=== PATIENT | female | born 1940 | race Caucasian/White ===

== ENCOUNTER 2019-12-04 14:20 | Outpatient (CLI) | payer MEDICARE, SELFPAY ==
[2019-12-04 16:47] LABS: Free T4 Free Thyroxine 1.01 ng/mL (0.78-2.19)
[2019-12-07 05:56] LABS: Triiodothyronine T3 Free 2.4 pg/mL (2.3-4.2)
== END 2019-12-04 14:21 | disposition home or self-care (01) ==
LOC: ANHWCLAB 14:26
PROVIDERS: PCP Internal Medicine; Visit Provider Internal Medicine Endocrinology, Diabetes & Metabolism
DX: E04.9 Nontoxic goiter, unspecified (principal); E05.90 Thyrotoxicosis, unspecified without thyrotoxic crisis or storm
CPT/HCPCS: 36415; 84439; 84443; 84481

== ENCOUNTER 2019-12-11 13:13 | Outpatient (CLI) | payer MEDICARE, SELFPAY ==
--- NOTE | ~2019-12-11 | US_ITS ---
EXAMINATION: US thyroid DATE: 12/11/2019 14:05 INDICATION: Thyrotoxicosis, unspecified without thyrotoxic crisis. Neck fullness on exam. TECHNIQUE: Multiple ultrasound images of the thyroid were obtained. COMPARISON: Thyroid scintigraphy 08/29/2018, chest CT 08/10/2015 FINDINGS: The right thyroid lobe measures 5.0 x 1.2 x 2.3 cm. The left thyroid lobe measures 7.8 x 1.4 x 3.6 c m. In the inferior left thyroid lobe, there is a 4.2 cm predominantly solid, isoechoic, dkujy-gwdy-f all nodule with ill-defined margin without echogenic foci (TI-RADS TR3). IMPRESSION: 1. 4.2 cm left thyroid nodule, stable from 08/10/15, likely benign. Reviewed, dictated and finalized at location A. RAL APPELLATE LAW CLERK
== END 2019-12-11 13:14 | disposition home or self-care (01) ==
PROVIDERS: PCP Internal Medicine; Visit Provider Internal Medicine Endocrinology, Diabetes & Metabolism
DX: E05.90 Thyrotoxicosis, unspecified without thyrotoxic crisis or storm (principal); E04.9 Nontoxic goiter, unspecified
CPT/HCPCS: 76536

== ENCOUNTER 2019-12-26 13:32 | Outpatient (CLI) | payer MEDICARE, SELFPAY ==
--- NOTE | ~2019-12-26 | US_ITS ---
EXAMINATION: US FNA w image guidance DATE: 12/26/2019 15:09 INDICATION: Nontoxic single thyroid nodule. TECHNIQUE: The procedure and its benefits, risks, and benefits were discussed with the patient. Risks specifical ly discussed included bleeding. The patient verbalized understanding of the risks and agreed to proce ed. The neck was prepped and draped in the usual sterile manner. 1% lidocaine was used for local ane sthesia. 5 passes were made with a 25G needle into the lesion. Appropriate needle location was docu mented with continuous sonographic guidance. There were no immediate complications. The patient unde rstood to call the ordering physician for results after a week and a half and verbalized that underst anding. FINDINGS: Grayscale ultrasound images demonstrate needles advanced into a 3.5 cm nodule in inferior left thyroi d lobe for biopsy. IMPRESSION: 1. Ultrasound-guided fine needle aspiration of a left thyroid nodule. Reviewed, dictated and finalized at location A. ON CATCHER
== END 2019-12-26 13:33 | disposition home or self-care (01) ==
PROVIDERS: PCP Internal Medicine; Visit Provider Internal Medicine Endocrinology, Diabetes & Metabolism
DX: E04.1 Nontoxic single thyroid nodule (principal)
CPT/HCPCS: 10005; 88108; 88173

== ENCOUNTER 2020-02-05 17:01 | Emergency (ER) | payer MEDICARE, SELFPAY ==
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
[2020-02-05 17:15] VITALS: BP 148/89; PULSE 104; RESP 16; TEMP 36.6; O2SAT 97
== END 2020-02-05 17:40 | disposition short-term general hospital (02) ==
PROVIDERS: Emergency Provider Nurse Practitioner; PCP Internal Medicine
DX: S01.01XA Laceration without foreign body of scalp, initial encounter (principal); W01.0XXA Fall on same level from slipping, tripping and stumbling without subsequent striking against object, initial encounter; Z79.82 Long term (current) use of aspirin; E78.00 Pure hypercholesterolemia, unspecified; I10 Essential (primary) hypertension
CPT/HCPCS: 12001; 99212; G0463

== ENCOUNTER 2020-02-05 18:10 | Emergency (ER) | payer OTHER, MEDICARE, SELFPAY ==
--- NOTE | ~2020-02-05 | CT_ITS ---
EXAMINATION: CT brain wo con DATE: 02/05/2020 18:24 INDICATION: Status post fall. Head injury. TECHNIQUE: Computed tomography (CT) of the head was performed without intravenous contrast. The dose- length product was 605.33 mGy-cm. The mA was adjusted according to patient size. Iterative reconstruc tion technique was employed. COMPARISON: CT dated 08/10/2015 FINDINGS: No significant change to partially calcified extra-axial mass left frontal lobe, consistent with meningioma. There is left posterior parietal scalp hematoma. Mild atrophy. There are scattered mild periventricular and subcortical white matter changes, most likely related to small vessel ischem ic disease (microangiopathy). There is intracranial atherosclerosis and ectasia. No acute intracrania l hemorrhage, infarction, mass or mass effect. No ventriculomegaly or midline shift.. Paranasal sinus es and mastoids are pneumatized. No depressed skull fractures. IMPRESSION: 1. No acute intracranial abnormality. 2: Stable partially calcified left frontal lobe extra-axial mass, consistent with meningioma. 3: Chronic age-related findings. Reviewed, dictated and finalized at location A. IMPRESSION: 1. No acute intracranial abnormality. 2: Stable partially calcified left frontal lobe extra-axial mass, consistent wi th meningioma. 3: Chronic age-related findings.
[2020-02-05 18:13] VITALS: BP 135/102; PULSE 105; RESP 18; TEMP 37.1; O2SAT 95
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
[2020-02-05 18:50] VITALS: BP 136/96; PULSE 101; RESP 20; O2SAT 95
[2020-02-05 19:01] VITALS: BP 138/92; PULSE 78; RESP 16; O2SAT 100
== END 2020-02-05 19:01 | disposition home or self-care (01) ==
PROVIDERS: Emergency Provider Emergency Medicine; PCP Internal Medicine
DX: S01.01XA Laceration without foreign body of scalp, initial encounter (principal); M19.90 Unspecified osteoarthritis, unspecified site; E11.9 Type 2 diabetes mellitus without complications; E78.5 Hyperlipidemia, unspecified; I10 Essential (primary) hypertension; E03.9 Hypothyroidism, unspecified; Z79.82 Long term (current) use of aspirin; Z96.652 Presence of left artificial knee joint; G93.9 Disorder of brain, unspecified; W01.0XXA Fall on same level from slipping, tripping and stumbling without subsequent striking against object, initial encounter
CPT/HCPCS: 70450; 99284

== ENCOUNTER 2020-06-14 13:35 | Outpatient (CLI) | payer MEDICARE, SELFPAY ==
--- NOTE | ~2020-06-14 | US_ITS ---
EXAMINATION: US thyroid DATE: 06/14/2020 14:08 INDICATION: Nontoxic single thyroid nodule. TECHNIQUE: Multiple ultrasound images of the thyroid were obtained. COMPARISON: Ultrasound 12/26/2019, 12/11/2019, chest CT 08/10/15 FINDINGS: The right thyroid lobe measures 4.2 x 1.9 x 2.0 cm. The left thyroid lobe measures 5.7 x 2.4 x 3.1 c m. The thyroid demonstrates diffusely increased vascularity. In the right thyroid lobe, there is an 11 mm solid, isoechoic, ubsfu-ovcs-gwbz nodule with ill-defined margin without echogenic foci (TI-RAD S TR3). In the left thyroid lobe, there is a 3.5 cm almost completely solid, hypoechoic, qnmas-zknw-g all nodule with ill-defined margin without echogenic foci (TR4). In the left thyroid lobe, there is a 2.3 cm almost completely solid, hypoechoic, ijhla-eggj-pwke nodule with ill-defined margin without e chogenic foci (TR4). These 2 nodules were measured together on prior imaging and area stable from 08/15. Biopsy on 12/26/2019 was benign. IMPRESSION: 1. Thyroid nodules, likely not clinically significant. Reviewed, dictated and finalized at location B.
== END 2020-06-14 13:36 | disposition home or self-care (01) ==
PROVIDERS: PCP Internal Medicine; Visit Provider Internal Medicine Endocrinology, Diabetes & Metabolism
DX: E04.2 Nontoxic multinodular goiter (principal)
CPT/HCPCS: 76536

== ENCOUNTER 2020-08-19 11:29 | Outpatient (CLI) | payer MEDICARE, SELFPAY ==
--- NOTE | ~2020-08-19 | XR_ITS ---
XR foot LT min 3V 08/19/2020 11:59 Indication: Left foot pain Procedure: 4 views left foot Comparison: 12/20/2006 Findings: No fracture or traumatic malalignment. Osteopenia. Mild polyarticular osteoarthritis. Lisfr anc joint intact. There are prominent degenerative calcaneal enthesophyte at the plantar surface. 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 Reviewed, dictated and finalized at location B. 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
== END 2020-08-19 11:30 | disposition home or self-care (01) ==
PROVIDERS: PCP Internal Medicine; Visit Provider Internal Medicine
DX: S99.929A Unspecified injury of unspecified foot, initial encounter (principal); X58.XXXA Exposure to other specified factors, initial encounter; M19.072 Primary osteoarthritis, left ankle and foot
CPT/HCPCS: 73630

== ENCOUNTER 2020-09-16 15:00 | Outpatient (CLI) | payer MEDICARE, SELFPAY ==
--- NOTE | ~2020-09-16 | MM_ITS ---
EXAMINATION: MM screening reza BI w tyrone HISTORY: Screening mammogram TECHNIQUE: Craniocaudal and mediolateral oblique 3-D tomosynthesis images were obtained and synthetic 2-D images were generated. CAD analysis was submitted and interpreted. COMPARISON: 08/10/2019, 11/06/2015, 10/08/2014 BREAST PARENCHYMAL COMPOSITION: There are scattered areas of fibroglandular density. FINDINGS: Scattered benign-appearing calcifications are present. There is no evidence of suspicious m ass, calcification, or architectural distortion to suggest malignancy in either breast. There has bee n no suspicious interval change. IMPRESSION: 1. No mammographic evidence of malignancy. 2. Recommend routine screening mammography while the patient remains in good health. BI-RADS Category 2: Benign finding(s). Reviewed, dictated and finalized at location A. ROPOLOGY AND ARCHEOLOGY INSTRUCTOR IMPRESSION: 1. No mammographic evidence of malignancy. 2. Recommend routine screening mammography while the patient remains in good he alth. BI-RADS Category 2: Benign finding(s).
== END 2020-09-16 15:01 | disposition home or self-care (01) ==
LOC: ANHIMG 15:02
PROVIDERS: PCP Internal Medicine; Visit Provider Internal Medicine
DX: Z12.31 Encounter for screening mammogram for malignant neoplasm of breast (principal)
CPT/HCPCS: 77063; 77067

== ENCOUNTER 2021-01-23 10:20 | Outpatient (CLI) | payer MEDICARE, SELFPAY ==
[2021-01-23 13:09] LABS: Free T4 Free Thyroxine 0.85 ng/mL (0.78-2.19)
[2021-01-23 13:25] LABS: Total Triiodothyronine (T3) 1.27 NG/ML (0.97-1.69)
[2021-01-28 15:04] LABS: Thyroid Stimulating Immunoglob <89 % baseline (<140)
== END 2021-01-23 10:21 | disposition home or self-care (01) ==
LOC: ANHWCLAB 10:25
PROVIDERS: PCP Internal Medicine; Referring Provider Internal Medicine Endocrinology, Diabetes & Metabolism; Visit Provider Internal Medicine Endocrinology, Diabetes & Metabolism
DX: E04.1 Nontoxic single thyroid nodule (principal); R73.03 Prediabetes; E05.90 Thyrotoxicosis, unspecified without thyrotoxic crisis or storm
CPT/HCPCS: 36415; 84439; 84443; 84445; 84480

== ENCOUNTER 2021-04-19 14:22 | Emergency (ER) | payer MEDICARE, SELFPAY ==
--- NOTE | ~2021-04-19 | XR_ITS ---
XR wrist RT min 3V DATE: 04/19/2021 14:51 INDICATION: Fall, right wrist injury, pain TECHNIQUE: 4 views COMPARISON: None FINDINGS: There is a minimally displaced comminuted intra-articular fracture of the distal radius. Diffuse osteopenia. Triangular cartilage calcification. Prominent osteoarthritic change at the first carpometacarpal joint. There is osteoarthritic change at the first metacarpophalangeal and multiple interphalangeal joints. IMPRESSION: Comminuted intra-articular fracture distal radius Diffuse osteopenia Polyarticular osteoarthritis Reviewed, dictated and finalized at location A.
[2021-04-19 14:25] VITALS: BP 131/86; PULSE 102; RESP 16; TEMP 36.2; O2SAT 97
--- NOTE | 2021-04-19 15:58 | ED.GENADULT ---
HPI - General Adult General Chief complaint: Extremity Injury, Upper Stated complaint: right wrist injury Time Seen by Provider: 04/19/21 14:47 Source: patient Mode of arrival: ambulatory Limitations: no limitations History of Present Illness HPI narrative: Patient presents for evaluation of right wrist pain. She indicates she was doing some yard work today when she tripped over her left foot. She has a hx of drop foot and wears an ankle brace on the left. She did not hit her head or have loss of consciousness. She landed on her left buttock and is now experiencing pain in the right wrist. She reports decreased range of motion states that the pain in her right wrist is moderate in severity, without descriptive quality or numerical rating. No paresthesias. She is ambidextrous. She has some mild pain in the right shoulder denies loss of range of motion there. She denies pain in the left hip. She is not anticoagulated. 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 No additional complaints or concerns. Related Data Home Medications Medication Instructions Recorded Confirmed aspirin 81 mg chewable tablet 81 mg PO DAILY 10/04/19 03/27/21 calcium carbonate 600 mg (1,500 cap PO 02/15/20 03/27/21 mg)-vitamin D3 500 unit capsule fesoterodine 8 mg tablet,extended 8 mg PO DAILY 02/15/20 03/27/21 release 24 hr Allergies Allergy/AdvReac Type Severity Reaction Status Date / Time No Known Allergies Allergy NONE Verified 04/19/21 16:08 Review of Systems Review of Systems: Narrative: CONSTITUTIONAL: Denies fever, chills, or sweats. EYES: Denies visual changes, redness, or discharge. ENT: Denies rhinorrhea, congestion, sore throat, or otalgia. CARDIOVASCULAR: Denies chest pain, palpitations, or edema. RESPIRATORY: Denies cough or dyspnea. GASTROINTESTINAL: Denies abdominal pain, nausea, vomiting, or diarrhea. GENITOURINARY: Denies dysuria or hematuria. SKIN: Reports bruising to the right wrist. Denies rash or itching. MUSCULOSKELETAL: Reports right wrist pain and mild right shoulder pain. Denies back pain, joint pain, or myalgia. NEUROLOGIC: Denies headache, numbness, dizziness, or weakness. PSYCHIATRIC: Denies anxiety or depression. [facility] Past Medical History Medical History Anxiety Arthritis Diabetes mellitus Epistaxis HLD (hyperlipidemia) HTN (hypertension) Left foot drop Melena Obstructive sleep apnea Rectal polyp Shingles Traumatic injury of foot Surgical History Surgical History H/O arthroscopy of right knee H/O section History of back surgery History of left knee replacement Family History Family History Mother Cerebrovascular accident Family history of heart disease in male family member before age 55 Father Family history of malignant neoplasm of urinary bladder Social History Social History (Updated 04/19/21 @ 15:59 by IESHA Everett, ) Second hand tobacco smoke exposure: No Alcohol intake: never Substance use: never Living arrangements: with family Gender identity (if verbalized by the patient): Female Sexual Orientation (if Verbalized by the Patient): Straight or Heterosexual Spiritual care concerns: No Exam Narrative: Exam Narrative: GENERAL: Well-appearing, well-nourished, and in no acute distress. HEAD: Normocephalic, atraumatic. EYES: PERRLA and EOMI. ENT: Nares clear, no rhinorrhea or epistaxis. Mucous membranes moist. Oropharynx without tonsillar hypertrophy exudate or other lesions. Bilateral TMs pearly reyes nonbulging NECK: Supple. No adenopathy or masses. No carotid bruits or JVD CHEST: Clear to auscultation. No respiratory distress. No wheezes rales or rhonchi HEART: Regular rate and rhythm. No murmur heard. Normal peripheral pulses. ABDOMEN: Soft, nontender, nondiste
--- NOTE | 2021-04-19 16:10 | PC.NURSE ---
youth career specialist in room with the patient at this time.
--- NOTE | 2021-04-19 16:14 | PCCCNOTE ---
Care Coordination spoke with patient about resources for help at home. Pt has a fractured wrist and will be place in a splint. She has concerns she will need help at home as her has medical issues and is unable to assist with cooking and cleaning. Pt states she drove herself to hospital and lives close by. Her children all live out of state. Gave pt private pay caregiver list, POLLY flyer with phone number and discussed her calling her PMD for referral for home health with medication set up if needed. Pt voices understanding and states she will call her PMD on Wednesday and will follow all instructions hospital gives her. She also has close neighbors that are limited assistance.
[2021-04-19 18:00] VITALS: BP 149/97; PULSE 90; RESP 18; O2SAT 98
== END 2021-04-19 18:00 | disposition home or self-care (01) ==
PROVIDERS: Emergency Provider Nurse Practitioner; PCP Internal Medicine
DX: S52.571A Other intraarticular fracture of lower end of right radius, initial encounter for closed fracture (principal); M19.90 Unspecified osteoarthritis, unspecified site; E11.9 Type 2 diabetes mellitus without complications; E78.5 Hyperlipidemia, unspecified; I10 Essential (primary) hypertension; G47.30 Sleep apnea, unspecified; W01.0XXA Fall on same level from slipping, tripping and stumbling without subsequent striking against object, initial encounter
CPT/HCPCS: 29125; 73110; 99284; A4565

== ENCOUNTER 2021-04-26 12:30 | Emergency (ER) | payer MEDICARE, SELFPAY ==
[2021-04-26 12:43] VITALS: BP 106/82; PULSE 112; RESP 18; TEMP 36.2; O2SAT 96
--- NOTE | 2021-04-26 13:16 | ED.EPISTAXIS ---
HPI - Epistaxis General Chief complaint: Epistaxis Stated complaint: nose bleed Time Seen by Provider: 04/26/21 13:02 Source: patient Mode of arrival: EMS Limitations: no limitations History of Present Illness HPI Narrative: Patient is an 80-year-old female who presents for evaluation of epistaxis. Patient states nosebleeding started suddenly this morning when she went to pick her left nostril and immediately started to have brisk bleeding from the left naris. Patient was unable to control the bleeding at home, thus EMS was called. Nasal clamp was placed and patient was transported to our facility. No shortness of breath. She is not anticoagulated. No history of hypertension. No history of coagulopathy. No facial trauma otherwise. Patient denies any current lightheadedness or dizziness. Pt recently with injury to right arm, pt has splint in place. Fingers slightly bruised. Related Data Home Medications Medication Instructions Recorded Confirmed aspirin 81 mg chewable tablet 81 mg PO DAILY 10/04/19 03/27/21 calcium carbonate 600 mg (1,500 cap PO 02/15/20 03/27/21 mg)-vitamin D3 500 unit capsule fesoterodine 8 mg tablet,extended 8 mg PO DAILY 02/15/20 03/27/21 release 24 hr Allergies Allergy/AdvReac Type Severity Reaction Status Date / Time No Known Allergies Allergy NONE Verified 04/21/21 13:13 Review of Systems Review of Systems: Narrative: CONSTITUTIONAL: Denies fever HEENT: Epistaxis + CARDIOVASCULAR: Denies chest pain RESPIRATORY: Denies cough or dyspnea. GASTROINTESTINAL: Denies abdominal pain SKIN: Denies rash MUSCULOSKELETAL: Denies back pain NEUROLOGIC: Denies headache PMFSH Past Medical History Medical History Anxiety Arthritis Diabetes mellitus Epistaxis HLD (hyperlipidemia) HTN (hypertension) Left foot drop Melena Obstructive sleep apnea Rectal polyp Shingles Traumatic injury of foot Surgical History Surgical History H/O arthroscopy of right knee H/O section History of back surgery History of left knee replacement Family History Family History Mother Cerebrovascular accident Family history of heart disease in male family member before age 55 Father Family history of malignant neoplasm of urinary bladder Social History Social History Second hand tobacco smoke exposure: No Alcohol intake: never Substance use: never Gender identity (if verbalized by the patient): Female Spiritual care concerns: No Exam Narrative: Exam Narrative: GENERAL: Awake, alert, conversant HEAD: Normocephalic, atraumatic. EYES: PERRLA and EOMI. ENT: Epistaxis of the left naris. Large blood clot present. Mucous membranes moist. Mild streaking of blood in the posterior oropharynx. NECK: Supple. CHEST: No respiratory distress, breathing even and non labored HEART:Tachycardic rate, sinus rhythm ABDOMEN:Non distended, non tender EXTREMITIES: Normal range of motion. No edema. Splint in place, right wrist. SKIN: Warm, dry, no rash. NEURO:No focal deficits. Alert and oriented x3 Course Vital Signs Vital signs: Vital Signs Temperature 36.2 C L 04/26/21 12:43 Pulse Rate 112 H 04/26/21 12:43 Respiratory Rate 18 04/26/21 12:43 Blood Pressure 106/82 04/26/21 12:43 Pulse Oximetry 96 04/26/21 12:43 Temperature 36.2 C L 04/26/21 12:43 Pulse Rate 112 H 04/26/21 12:43 Respiratory Rate 18 04/26/21 12:43 Blood Pressure 106/82 04/26/21 12:43 Pulse Oximetry 96 04/26/21 12:43 MDM - Epistaxis MDM Narrative Medical decision making narrative: Patient presented for evaluation of epistaxis. At the time of assessment, airway is intact and vital signs are notable for mild tachycardia. Patient blew her nose, clot was evacuated, Afrin was sp
[2021-04-26 14:35] LABS: Basophils Percent Auto 0.4 % (0.2-1.2); Eosinophils Absolute Auto 0.1 K/mm3 (0-0.3); Eosinophils Percent Auto 1.5 % (0-4.4); Hemoglobin 11.7 g/dL (12.0-15.0); Immature Granulocyte Absolute 0.02 K/mm3 (0.00-0.031); Immature Granulocyte Percent A 0.2 % (0-0.5); Lymphocytes Absolute Auto 1.15 K/mm3 (0.9-3.2); Mean Corpuscular HGB Conc 31.6 g/dl (32-36); Mean Corpuscular Hemoglobin 29.3 pg (26-34); Mean Corpuscular Volume 92.5 fl (80-100); Mean Platelet Volume 9.7 fl (7.4-10.4); Monocytes Absolute Auto 0.7 K/mm3 (0.1-0.6); Monocytes Percent Auto 8.1 % (2.6-8.5); Neutrophils Absolute Auto 6.2 K/mm3 (1.3-6.7); Neutrophils Percent Auto 75.8 % (45.5-73.1); Platelet Count Result 258 k/mm3 (150-375); Red Cell Distribution Width 13.6 % (11.5-14.5); White Blood Count 8.2 K/mm3 (4.5-10.0)
[2021-04-26 14:45] LABS: Anion Gap 7 mmol/L (8-16); Blood Urea Nitrogen 22 mg/dL (7-17); Calcium 8.6 mg/dL (8.4-10.2); Carbon Dioxide 27 mmol/L (22-30); Chloride 109 mmol/L (98-107); Estimated CRCL calculation 47 ml/min; Estimated Glomerular Filt Rate > 60; Glucose 90 mg/dL (65-105); Potassium 3.9 mmol/L (3.4-5.0); Sodium 143 mmol/L (137-145)
== END 2021-04-26 15:17 | disposition home or self-care (01) ==
PROVIDERS: Emergency Provider Emergency Medicine; PCP Internal Medicine
DX: R04.0 Epistaxis (principal); F41.9 Anxiety disorder, unspecified; M19.90 Unspecified osteoarthritis, unspecified site; E11.9 Type 2 diabetes mellitus without complications; E78.5 Hyperlipidemia, unspecified; I10 Essential (primary) hypertension; G47.30 Sleep apnea, unspecified; M21.372 Foot drop, left foot; Z79.82 Long term (current) use of aspirin
CPT/HCPCS: 30901; 36415; 80048; 85025; 99283; A9270

== ENCOUNTER 2021-05-01 08:29 | Emergency (ER) | payer MEDICARE, SELFPAY ==
[2021-05-01 08:26] VITALS: BP 131/79; PULSE 121; RESP 22; O2SAT 100
--- NOTE | 2021-05-01 08:52 | ED.EPISTAXIS ---
HPI - Epistaxis General Chief complaint: Epistaxis Stated complaint: nosebleed Time Seen by Provider: 05/01/21 08:52 Source: patient and RN notes reviewed Limitations: no limitations History of Present Illness HPI Narrative: Patient is 80 years old white female presents with epistaxis, unknown side, started 3 hours prior to arrival to the emergency room. Patient is a status post anterior cauterization 1 week ago by ENT. Patient reports that Dr. Jose C perez is aware and was told that he is going to come to the emergency room to fix her. Related Data Home Medications Medication Instructions Recorded Confirmed aspirin 81 mg chewable tablet 81 mg PO DAILY 10/04/19 04/28/21 calcium carbonate 600 mg (1,500 cap PO 02/15/20 04/28/21 mg)-vitamin D3 500 unit capsule fesoterodine 8 mg tablet,extended 8 mg PO DAILY 02/15/20 04/28/21 release 24 hr Allergies Allergy/AdvReac Type Severity Reaction Status Date / Time No Known Allergies Allergy NONE Verified 05/01/21 08:35 Review of Systems Review of Systems: Narrative: CONSTITUTIONAL: Denies fever, chills, or sweats. EYES: Denies visual changes, redness, or discharge. ENT: Denies rhinorrhea, congestion, sore throat, or otalgia. CARDIOVASCULAR: Denies chest pain, palpitations, or edema. RESPIRATORY: Denies cough or dyspnea. GASTROINTESTINAL: Denies abdominal pain, nausea, vomiting, or diarrhea. GENITOURINARY: Denies dysuria or hematuria. SKIN: Denies rash or itching. MUSCULOSKELETAL: Denies back pain, joint pain, or myalgia. NEUROLOGIC: Denies headache, numbness, or weakness. PSYCHIATRIC: Denies anxiety or depression. [facility] Past Medical History Medical History Anxiety Arthritis Diabetes mellitus Epistaxis HLD (hyperlipidemia) HTN (hypertension) Left foot drop Melena Obstructive sleep apnea Rectal polyp Shingles Traumatic injury of foot Surgical History Surgical History H/O arthroscopy of right knee H/O section History of back surgery History of left knee replacement Family History Family History Mother Cerebrovascular accident Family history of heart disease in male family member before age 55 Diabetes mellitus Heart disease Father Family history of malignant neoplasm of urinary bladder Sibling Hypertension Heart disease Cerebrovascular accident Other Alcoholism Social History Social History Second hand tobacco smoke exposure: No Alcohol intake: never Substance use: never Gender identity (if verbalized by the patient): Female Spiritual care concerns: No Exam Narrative: Exam Narrative: General appearance: Well-developed, well-nourished Skin: Normal color Head: Normocephalic, nontraumatic Eyes: Clear conjunctiva ENT: Oropharynx normal, ears normal,, nose bleed bilaterally, nasal clip on. No active bleeding at this time Neck: Supple, nontender Chest and respiratory: Airway patent, no respiratory distress, no accessory muscle use Heart: Regular rate/rhythm Vascular: Normal peripheral pulses, normal capillary refill. Musculoskeletal: Normal range of motion, nontender back Neurologic: Alert and oriented ?3, Course Course Emergency Course: Stable, resolved Vital Signs Vital signs: Vital Signs Pulse Rate 121 H 05/01/21 08:26 Respiratory Rate 22 H 05/01/21 08:26 Blood Pressure 131/79 05/01/21 08:26 Pulse Oximetry 100 05/01/21 08:26 Pulse Rate 108 H 05/01/21 11:08 Respiratory Rate 18 05/01/21 11:08 Blood Pressure 1
--- NOTE | 2021-05-01 09:06 | PC.NURSE ---
Pt requests to call [facility] and [facility] to get a ride home
[2021-05-01 09:10] VITALS: BP 144/98; PULSE 115; RESP 20; O2SAT 100
[2021-05-01 09:53] VITALS: BP 140/77; PULSE 110; RESP 17; O2SAT 97
[2021-05-01 11:08] VITALS: BP 140/77; PULSE 108; RESP 18; O2SAT 98
== END 2021-05-01 11:37 | disposition home or self-care (01) ==
PROVIDERS: Emergency Provider Emergency Medicine; PCP Internal Medicine
DX: R04.0 Epistaxis (principal); F41.9 Anxiety disorder, unspecified; M19.90 Unspecified osteoarthritis, unspecified site; E11.9 Type 2 diabetes mellitus without complications; E78.5 Hyperlipidemia, unspecified; I10 Essential (primary) hypertension; G47.30 Sleep apnea, unspecified
CPT/HCPCS: 30905; 99282

== ENCOUNTER 2021-07-03 11:58 | Outpatient (CLI) | payer MEDICARE, SELFPAY ==
[2021-07-03 16:15] LABS: Basophils Percent Auto 0.3 % (0.2-1.2); Eosinophils Absolute Auto 0.2 K/mm3 (0-0.3); Eosinophils Percent Auto 2.7 % (0-4.4); Hematocrit 39.7 % (37.0-47.0); Hemoglobin 12.5 g/dL (12.0-15.0); Immature Granulocyte Absolute 0.01 K/mm3 (0.00-0.031); Immature Granulocyte Percent A 0.1 % (0-0.5); Lymphocytes Percent Auto 21.2 % (18.3-44.2); Mean Corpuscular HGB Conc 31.5 g/dl (32-36); Mean Corpuscular Hemoglobin 28.5 pg (26-34); Mean Corpuscular Volume 90.4 fl (80-100); Mean Platelet Volume 11.3 fl (7.4-10.4); Monocytes Absolute Auto 0.6 K/mm3 (0.1-0.6); Monocytes Percent Auto 9.1 % (2.6-8.5); Neutrophils Absolute Auto 4.7 K/mm3 (1.3-6.7); Neutrophils Percent Auto 66.6 % (45.5-73.1); Platelet Count Result 259 k/mm3 (150-375); Red Blood Count 4.39 M/mm3 (4.2-5.4); Red Cell Distribution Width 13.7 % (11.5-14.5); White Blood Count 7.1 K/mm3 (4.5-10.0)
[2021-07-03 16:20] LABS: Iron 31 ug/dL (37-170)
[2021-07-03 16:33] LABS: Percent Iron Saturation 9 % (20-50)
[2021-07-03 16:47] LABS: MALB Creatinine Ratio 10.5 mg/g (0-30); Microalbumin Urine Random 6.8 mg/L (0-16.7)
[2021-07-03 17:23] LABS: Hemoglobin A1C 5.1 % (<5.7)
[2021-07-03 17:28] LABS: Folic Acid 8.1 ng/mL (2.76->20)
== END 2021-07-03 11:59 | disposition home or self-care (01) ==
PROVIDERS: PCP Internal Medicine; Visit Provider Internal Medicine
DX: E11.9 Type 2 diabetes mellitus without complications (principal); D64.9 Anemia, unspecified; E78.2 Mixed hyperlipidemia
CPT/HCPCS: 36415; 82043; 82607; 82728; 82746; 83036; 83540; 83550; 85025

== ENCOUNTER 2021-07-08 12:33 | Outpatient (CLI) | payer MEDICARE, SELFPAY ==
--- NOTE | ~2021-07-08 | US_ITS ---
EXAMINATION: US thyroid DATE: 07/08/2021 13:13 INDICATION: Thyroid nodules. TECHNIQUE: Multiple ultrasound images of the thyroid were obtained. COMPARISON: Ultrasound 06/14/2020, 12/11/2019, chest CT 08/10/15 FINDINGS: The right thyroid lobe measures 4.9 x 2.1 x 1.6 cm. The left thyroid lobe measures 5.9 x 2.1 x 2.4 c m. In the right thyroid lobe, there is a 7 mm solid, hypoechoic, kmmow-pcqs-bbls nodule with ill-def ined margin without echogenic foci (TI-RADS TR4). In the right thyroid lobe, there is a 9 mm solid, h ypoechoic, duclb-igef-nnbq nodule with ill-defined margin without echogenic foci (TR4). In the left t hyroid lobe, there is a 2.7 cm solid, isoechoic, xryacm-vzlo-erdb nodule with ill-defined margin with out echogenic foci (TR4). In the left thyroid lobe, there is a 2.3 cm solid, isoechoic, dvptt-ejjy-ta ll nodule with ill-defined margin without echogenic foci (TR3). These 2 nodules were measured as a si ngle nodule on prior imaging and demonstrated benign pathology at fine-needle aspiration on 12/26/19. IMPRESSION: 1. Thyroid nodules, likely not clinically significant. Reviewed, dictated and finalized at location A.
== END 2021-07-08 12:34 | disposition home or self-care (01) ==
PROVIDERS: PCP Internal Medicine; Visit Provider Internal Medicine Endocrinology, Diabetes & Metabolism
DX: R73.03 Prediabetes (principal); E05.90 Thyrotoxicosis, unspecified without thyrotoxic crisis or storm; E04.2 Nontoxic multinodular goiter
CPT/HCPCS: 76536

== ENCOUNTER 2021-07-30 10:20 | Outpatient (CLI) | payer MEDICARE, SELFPAY ==
[2021-07-30 16:57] LABS: Free T4 Free Thyroxine 1.13 ng/mL (0.78-2.19); Vitamin D 25 Hydroxy 47.7 ng/mL
[2021-07-30 17:09] LABS: Thyroid Stimulating Hormone 0.657 uIU/mL (0.465-4.680)
== END 2021-07-30 10:21 | disposition home or self-care (01) ==
LOC: ANHWCLAB 10:27
PROVIDERS: PCP Internal Medicine; Visit Provider Internal Medicine Endocrinology, Diabetes & Metabolism
DX: E05.90 Thyrotoxicosis, unspecified without thyrotoxic crisis or storm (principal); E04.1 Nontoxic single thyroid nodule; M85.88 Other specified disorders of bone density and structure, other site; R79.89 Other specified abnormal findings of blood chemistry
CPT/HCPCS: 36415; 82306; 84439; 84443

== ENCOUNTER 2021-09-30 13:45 | Outpatient (CLI) | payer MEDICARE, SELFPAY ==
--- NOTE | ~2021-09-30 | DEXA_ITS ---
Bone Density Report Name: Mayra Clayton Age: 80 Sex: Female Ethnicity: White Date of : 1940 Indication: osteopenia; height loss; prior fracture; postmenopausal Referring Provider: Danyell Albrecht Study: Bone densitometry was performed. Exam Date: September 30, 2021 Accession number: [id number] Bone Density: Region BMD T-score Z-score Classification AP Spine (L1, L2) 0.895 -0.8 1.8 Normal Femoral Neck (Left) 0.784 -0.6 1.8 Normal Total Hip (Left) 0.749 -1.6 0.6 Osteopenia Total Hip Bilateral Avg 0.769 -1.5 0.8 Osteopenia Femoral Neck (Right) 0.763 -0.8 1.6 Normal Total Hip (Right) 0.789 -1.3 0.9 Osteopenia World Health Organization criteria for BMD impression classify patients as: Normal (T-score at or above -1.0), Osteopenia (T-score between -1.0 and -2.5), or Osteoporosis (T-score at or below -2.5). 10-year Fracture Risk(1): Major Osteoporotic Fracture 15% Hip Fracture 2.6% Reported Risk Factors: [place] (), Neck BMD=0.763, BMI=32.6, previous fracture (1) FRAX(R) Version 3.08. Fracture probability calculated for an untreated patient. Fracture probability may be lower if the patient has received treatment. Previous Exams: Region Exam Age BMD T-score BMD Change BMD Change Date g/cm2 vs Baseline vs Previous AP Spine(L1, L2) 09/30/2021 80 0.895 -0.8 -0.027(-2.9%)# -0.074(-7.6%)* 10/08/2014 73 0.969 -0.1 0.047(5.1%)# 0.046(5.0%)# 07/01/2012 71 0.923 -0.5 0.001(0.1%)# -0.030(-3.1%)# 05/29/2010 69 0.952 -0.2 0.031(3.3%)* 0.046(5.1%)* 02/21/2008 67 0.907 -0.7 -0.015(-1.7%) -0.022(-2.4%) 09/20/2003 62 0.929 -0.5 0.007(0.8%) 0.007(0.8%) 09/19/2001 60 0.922 -0.5 Total Hip(Left) 09/30/2021 80 0.749 -1.6 -0.198(-21.0%) -0.052(-6.5%)* 10/08/2014 73 0.800 -1.2 -0.147(-15.5%) -0.016(-1.9%)# 07/01/2012 71 0.816 -1.0 -0.131(-13.8%) -0.019(-2.2%)# 05/29/2010 69 0.835 -0.9 -0.112(-11.9%) -0.091(-9.8%)* 02/21/2008 67 0.926 -0.1 -0.021(-2.2%) -0.120(-11.5%) 09/20/2003 62 1.046 0.8 0.099(10.4%)* 0.099(10.4%)* 09/19/2001 60 0.947 0.0 Total Hip(Right) 09/30/2021 80 0.789 -1.3 -0.185(-19.0%) -0.016(-2.0%) 10/08/2014 73 0.805 -1.1 -0.169(-17.4%) -0.073(-8.3%)# 07/01/2012 71 0.878 -0.5 -0.096(-9.8%)# 0.071(8.8%)# 05/29/2010 69 0.807 -1.1 -0.167(-17.1%) -0.135(-14.3%) 02/21/2008 67 0.942 0.0 -0.032(-3.3%)* -0.026(-2.7%) 09/20/2003 62 0.968 0.2 -0.006(-0.6%) -0.006(-0.6%) 09/19/2001 60 0.974 0.3 *Denote
== END 2021-09-30 13:46 | disposition home or self-care (01) ==
LOC: ANHIMG 13:49
PROVIDERS: PCP Internal Medicine; Visit Provider Internal Medicine Endocrinology, Diabetes & Metabolism
DX: M85.88 Other specified disorders of bone density and structure, other site (principal); M85.852 Other specified disorders of bone density and structure, left thigh
CPT/HCPCS: 77080

== ENCOUNTER 2021-10-14 13:42 | Outpatient (CLI) | payer MEDICARE, SELFPAY ==
[2021-10-14 15:07] LABS: Iron 59 ug/dL (37-170)
[2021-10-14 15:17] LABS: Percent Iron Saturation 20 % (20-50)
[2021-10-18 18:02] LABS: Folic Acid 5.2 ng/mL (2.76->20)
== END 2021-10-14 13:43 | disposition home or self-care (01) ==
LOC: ANHLAB 13:45
PROVIDERS: PCP Internal Medicine; Visit Provider Internal Medicine
DX: D64.9 Anemia, unspecified (principal)
CPT/HCPCS: 36415; 82607; 82728; 82746; 83540; 83550

== ENCOUNTER → 2021-11-29 07:36 | Outpatient (CLI) | payer MEDICARE, SELFPAY ==
[2021-11-29 13:57] LABS: Influenza A QL RT-PCR Negative (Negative); Influenza B QL RT-PCR Negative (Negative); SARS-CoV-2 RNA PCR Negative
== END ==
PROVIDERS: PCP Internal Medicine; Visit Provider Internal Medicine
DX: J06.9 Acute upper respiratory infection, unspecified (principal); Z20.822 Contact with and (suspected) exposure to COVID-19
CPT/HCPCS: 87502; C9803; U0003; U0005

== ENCOUNTER 2021-12-11 16:59 | Outpatient (CLI) | payer MEDICARE, SELFPAY ==
--- NOTE | ~2021-12-11 | MM_ITS ---
EXAMINATION: MM screening [facility] BI w tyrone HISTORY: Screening mammogram TECHNIQUE: Craniocaudal and mediolateral oblique 3-D tomosynthesis images were obtained and synthetic 2-D images were generated. CAD analysis was submitted and interpreted. COMPARISON: 09/16/2020, 08/10/2019, 11/06/2015 BREAST PARENCHYMAL COMPOSITION: There are scattered areas of fibroglandular density. FINDINGS: There is no evidence of suspicious mass, calcification, or architectural distortion to sugg est malignancy in either breast. There has been no suspicious interval change. IMPRESSION: 1. No mammographic evidence of malignancy. 2. Recommend routine screening mammography in one year. BI-RADS Category 1: Negative Reviewed, dictated and finalized at location A. [employer]
== END 2021-12-11 17:00 | disposition home or self-care (01) ==
LOC: ANHIMG 17:00
PROVIDERS: PCP Internal Medicine; Visit Provider Internal Medicine
DX: Z12.31 Encounter for screening mammogram for malignant neoplasm of breast (principal)
CPT/HCPCS: 77063; 77067

== ENCOUNTER 2022-02-02 08:38 | Outpatient (CLI) | payer MEDICARE, SELFPAY ==
[2022-02-02 16:31] LABS: Basophils Percent Auto 0.7 % (0.2-1.2); Eosinophils Absolute Auto 0.3 K/mm3 (0-0.3); Eosinophils Percent Auto 4.6 % (0-4.4); Hematocrit 42.2 % (37.0-47.0); Hemoglobin 13.7 g/dL (12.0-15.0); Immature Granulocyte Absolute 0.01 K/mm3 (0.00-0.031); Immature Granulocyte Percent A 0.2 % (0-0.5); Lymphocytes Absolute Auto 1.46 K/mm3 (0.9-3.2); Lymphocytes Percent Auto 25.7 % (18.3-44.2); Mean Corpuscular HGB Conc 32.5 g/dl (32-36); Mean Corpuscular Volume 92.3 fl (80-100); Mean Platelet Volume 11.3 fl (7.4-10.4); Monocytes Absolute Auto 0.6 K/mm3 (0.1-0.6); Monocytes Percent Auto 10.2 % (2.6-8.5); Neutrophils Absolute Auto 3.3 K/mm3 (1.3-6.7); Neutrophils Percent Auto 58.6 % (45.5-73.1); Platelet Count Result 256 k/mm3 (150-375); Red Blood Count 4.57 M/mm3 (4.2-5.4); Red Cell Distribution Width 14.6 % (11.5-14.5); White Blood Count 5.7 K/mm3 (4.5-10.0)
[2022-02-02 16:53] LABS: Alanine Aminotransferase 16 U/L (4-35); Alkaline Phosphatase 97 U/L (38-126); Anion Gap 5 mmol/L (8-16); Aspartate Amino Transferase 27 U/L (14-36); Bilirubin,Total 0.4 mg/dL (0.2-1.3); Blood Urea Nitrogen 16 mg/dL (7-17); Calcium 9.2 mg/dL (8.4-10.2); Carbon Dioxide 28 mmol/L (22-30); Chloride 106 mmol/L (98-107); Cholesterol 155 mg/dL (0-200); Estimated Glomerular Filt Rate > 60; Glucose 89 mg/dL (65-110); HDL Direct 57 mg/dL; Potassium 5.1 mmol/L (3.4-5.0); Sodium 139 mmol/L (137-145); Triglycerides 66 mg/dL (<150)
[2022-02-02 16:56] LABS: Hemoglobin A1C 5.3 % (<5.7)
[2022-02-02 16:58] LABS: Creatinine Urine 63.3 mg/dL
[2022-02-02 17:08] LABS: LDL Cholesterol Direct 69 mg/dL
[2022-02-02 17:42] LABS: MALB Creatinine Ratio 10.6 mg/g (0-30); Microalbumin Urine Random 6.7 mg/L (0-16.7)
[2022-02-02 17:52] LABS: Free T4 Free Thyroxine 1.06 ng/mL (0.78-2.19); Vitamin D 25 Hydroxy 65.3 ng/mL
== END 2022-02-02 08:39 | disposition home or self-care (01) ==
PROVIDERS: PCP Internal Medicine; Referring Provider Nurse Practitioner Family; Visit Provider Nurse Practitioner Family
DX: E53.8 Deficiency of other specified B group vitamins (principal); R79.89 Other specified abnormal findings of blood chemistry; E05.90 Thyrotoxicosis, unspecified without thyrotoxic crisis or storm; E55.9 Vitamin D deficiency, unspecified
CPT/HCPCS: 36415; 80053; 80061; 82043; 82306; 82607; 83036; 84439; 84443; 84481; 85025

== ENCOUNTER → 2022-02-02 09:20 | Outpatient (CLI) | payer MEDICARE, SELFPAY ==
--- NOTE | ~2022-02-02 | XR_ITS ---
EXAMINATION: XR knee RT 3V DATE: 02/02/2022 09:36 INDICATION: Right knee pain. TECHNIQUE: 3 views of right knee including standing views were obtained. COMPARISON: None. FINDINGS: There is varus angulation at the knee. No fracture. There is severe osteoarthritis of media l and patellofemoral compartments and mild osteoarthritis of lateral compartment. There is a small kn ee joint effusion. IMPRESSION: 1. Severe right knee osteoarthritis. 2. Small right knee joint effusion. Reviewed, dictated and finalized at location A.
== END ==
PROVIDERS: PCP Internal Medicine; Visit Provider Internal Medicine
DX: M17.11 Unilateral primary osteoarthritis, right knee (principal); M25.461 Effusion, right knee
CPT/HCPCS: 73562

== ENCOUNTER 2022-02-16 10:15 | Outpatient (CLI) | payer MEDICARE, SELFPAY ==
[2022-02-16 13:30] LABS: Anion Gap 6 mmol/L (8-16); Blood Urea Nitrogen 20 mg/dL (7-17); Calcium 8.5 mg/dL (8.4-10.2); Carbon Dioxide 32 mmol/L (22-30); Chloride 103 mmol/L (98-107); Estimated Glomerular Filt Rate > 60; Glucose 79 mg/dL (65-110); Sodium 141 mmol/L (137-145)
== END 2022-02-16 10:16 | disposition home or self-care (01) ==
PROVIDERS: PCP Internal Medicine; Visit Provider Nurse Practitioner Family
DX: E11.9 Type 2 diabetes mellitus without complications (principal)
CPT/HCPCS: 36415; 80048

== ENCOUNTER 2022-03-02 00:47 | Day surgery (SDC) | payer MEDICARE, SELFPAY ==
[2022-02-16 13:26] VITALS: BMI 31.4
[2022-03-02 09:49] VITALS: BP 129/95; PULSE 87; RESP 17; TEMP 36.6; O2SAT 98; BMI 33.0
--- NOTE | 2022-03-02 09:52 | WPDGICN ---
Assessment and Plan Assessment and plan (1) Encounter for screening colonoscopy: Code(s): Z12.11 - Encounter for screening for malignant neoplasm of colon Status: Acute Assessment and Plan: Patient presents for neoplasia screening colonoscopy. She did have a colon polyp removed at the time of last colonoscopy 2015. Her father has had colon cancer. Neoplasia screening advised a 5 year interval Depending on her health.. (2) Family history of colon cancer in father: Code(s): Z80.0 - Family history of malignant neoplasm of digestive organs Status: Acute Assessment and Plan: Patient's father had colon cancer. Surveillance colonoscopy to be performed today. GI Consult Note Consult date/time: 03/02/22 09:52 HPI: Mayra Clayton is a 81 year old female Presents for screening colonoscopy. Patient has a history of colon polyps most recently 2015. Family history is significant that her father had colon cancer. Patient presents today for follow-up neoplasia screening colonoscopy. Patient reports that her current weight appetite bowel movements are normal. She denies any blood in her stools. Review of Systems Review of Systems: All systems reviewed & are unremarkable except as noted in HPI and below PMFSH Past Medical History Medical History Anxiety Arthritis Diabetes mellitus Epistaxis HLD (hyperlipidemia) HTN (hypertension) Left foot drop Melena Obstructive sleep apnea Rectal polyp Shingles Traumatic injury of foot Surgical History Surgical History H/O arthroscopy of right knee H/O section History of back surgery History of left knee replacement Family History Family History Mother Cerebrovascular accident Family history of heart disease in male family member before age 55 Diabetes mellitus Heart disease Father Family history of malignant neoplasm of urinary bladder Sibling Hypertension Heart disease Cerebrovascular accident Other Alcoholism Social History Social History Second hand tobacco smoke exposure: No Alcohol intake: never Substance use: never Gender identity (if verbalized by the patient): Female Sexual Orientation (if Verbalized by the Patient): Straight or Heterosexual Spiritual care concerns: No Meds Home Medications and Allergies Home Medications Medication Instructions Recorded Confirmed Type aspirin 81 mg chewable tablet 81 mg PO DAILY 10/04/19 03/02/22 History fesoterodine 8 mg tablet,extended 8 mg PO DAILY 02/15/20 03/02/22 History release 24 hr methimazole 5 mg tablet 5 mg PO DAILY #90 tablet 07/31/21 03/02/22 Rx rosuvastatin 20 mg tablet See Rx Instructions .ROUTE 08/14/21 03/02/22 Rx .COMPLEX #90 tablet Allergies Allergy/AdvReac Type Severity Reaction Status Date / Time No Known Allergies Allergy NONE Verified 03/02/22 09:47 Vital Signs Vital Signs - 24 hr 03/02/22 09:49 Temperature 97.9 F Pulse Rate 87 Respiratory Rate 17 Blood Pressure 129/95 H Pulse Oximetry 98 Exam Narrative: Physical exam reveals patient to be alert. Vital signs stable. HEENT exam is unremarkable. Patient is anicteric. Lungs are clear to auscultation and percussion. Heart is without murmur or extra sounds. Abdominal exam bowel sounds are present soft nontender with no hepatosplenomegaly. Digital external rectal exam is normal.
[2022-03-02] MEDS: LACTATED RINGERS 1,000 ML 150 ML IV CONT (09:56)
--- NOTE | 2022-03-02 10:01 | P.PNAN_ITS ---
Anes - Initial Pre Proc Eval Procedure: Operation Date: 03/02/22 11:00 Proposed Procedures p Screening Colonoscopy - Sergio Garsia MD Date/Time: 03/02/22 10:01 Surgeon: Sergio Garsia MD Pre Op Diagnosis: hx of colon polyps, family hx of colon ca Patient Data Age: 81 Gender: F Height: 1.57 m Weight: 81.8 kg Last Vital Signs Temp 97.9 F 03/02/22 09:49 Pulse 87 03/02/22 09:49 Resp 17 03/02/22 09:49 BP 129/95 H 03/02/22 09:49 Pulse Ox 98 03/02/22 09:49 Allergies Allergy/AdvReac Type Severity Reaction Status Date / Time No Known Allergies Allergy NONE Verified 03/02/22 09:47 Home Medications Medication Instructions Recorded Confirmed Type aspirin 81 mg chewable tablet 81 mg PO DAILY 10/04/19 03/02/22 History fesoterodine 8 mg tablet,extended 8 mg PO DAILY 02/15/20 03/02/22 History release 24 hr methimazole 5 mg tablet 5 mg PO DAILY #90 tablet 07/31/21 03/02/22 Rx rosuvastatin 20 mg tablet See Rx Instructions .ROUTE 08/14/21 03/02/22 Rx .COMPLEX #90 tablet Patient hx anesthesia problems: none Family hx anesthesia problems: none Results Review: All pre-operative results and documents have been reviewed as part of the pre-operative evaluation. [facility] Past Medical History Medical History Anxiety Arthritis Diabetes mellitus Epistaxis HLD (hyperlipidemia) HTN (hypertension) Left foot drop Melena Obstructive sleep apnea Rectal polyp Shingles Traumatic injury of foot Surgical History Surgical History H/O arthroscopy of right knee H/O section History of back surgery History of left knee replacement Family History Family History Mother Cerebrovascular accident Family history of heart disease in male family member before age 55 Diabetes mellitus Heart disease Father Family history of malignant neoplasm of urinary bladder Sibling Hypertension Heart disease Cerebrovascular accident Other Alcoholism Social History Social History (Reviewed 01/30/22 @ 11:36 by Abi Nelson Second hand tobacco smoke exposure: No Alcohol intake: never Substance use: never Gender identity (if verbalized by the patient): Female Sexual Orientation (if Verbalized by the Patient): Straight or Heterosexual Spiritual care concerns: No Anes - Eval Final PreProcedure Day of Procedure 03/02/22 10:01 Patient weight: obese Heart: regular rate and rhythm Lungs: clear to auscultation Airway: Mallampati scale class II Neurological: alert and oriented Last oral intake: >/= 8 hours ASA classification: III Emergent: no Anesthetic plan: proceed Anesthesia type and monitoring: general GIVS and standard monitoring Results Review: All pre-operative results and documents have been reviewed as part of the pre-operative evaluation. Informed Consent: The patient's anesthetic plan and its attendant risks and benefits were discussed with the patient/family/POA. Questions were solicited and answers provided to the satisfaction of the patient/family/POA.
[2022-03-02 10:50] VITALS: BP 120/68; PULSE 83; RESP 18; O2SAT 95
[2022-03-02 11:00] VITALS: BP 107/47; PULSE 77; RESP 27; O2SAT 97
[2022-03-02 11:10] VITALS: BP 115/79; PULSE 79; RESP 21; O2SAT 95
== END 2022-03-02 11:20 | disposition home or self-care (01) ==
PROVIDERS: PCP Internal Medicine; Visit Provider Internal Medicine Gastroenterology
PROC: 0DJD8ZZ Inspection of Lower Intestinal Tract, Via Natural or Artificial Opening Endoscopic (ICD-10-PCS; CPT 45378; principal; 2022-03-02 11:00)
DX: Z12.11 Encounter for screening for malignant neoplasm of colon (principal); K64.8 Other hemorrhoids; Z86.010 Personal history of colon polyps; Z80.0 Family history of malignant neoplasm of digestive organs; E11.9 Type 2 diabetes mellitus without complications; I10 Essential (primary) hypertension; E78.5 Hyperlipidemia, unspecified; G47.33 Obstructive sleep apnea (adult) (pediatric); F41.9 Anxiety disorder, unspecified; E66.9 Obesity, unspecified; Z68.33 Body mass index [BMI] 33.0-33.9, adult
CPT/HCPCS: G0105; J2704; J7120

== ENCOUNTER 2022-03-09 07:58 | Outpatient (CLI) | payer MEDICARE, SELFPAY ==
[2022-03-09 13:47] LABS: Basophils Percent Auto 0.7 % (0.2-1.2); Eosinophils Absolute Auto 0.3 K/mm3 (0-0.3); Eosinophils Percent Auto 5.2 % (0-4.4); Hematocrit 43.9 % (37.0-47.0); Hemoglobin 13.5 g/dL (12.0-15.0); Immature Granulocyte Absolute 0.02 K/mm3 (0.00-0.031); Immature Granulocyte Percent A 0.3 % (0-0.5); Lymphocytes Percent Auto 29.2 % (18.3-44.2); Mean Corpuscular HGB Conc 30.8 g/dl (32-36); Mean Corpuscular Hemoglobin 29.3 pg (26-34); Mean Corpuscular Volume 95.4 fl (80-100); Mean Platelet Volume 11.2 fl (7.4-10.4); Monocytes Absolute Auto 0.6 K/mm3 (0.1-0.6); Monocytes Percent Auto 9.6 % (2.6-8.5); Neutrophils Absolute Auto 3.2 K/mm3 (1.3-6.7); Platelet Count Result 244 k/mm3 (150-375); Red Cell Distribution Width 14.9 % (11.5-14.5); White Blood Count 5.8 K/mm3 (4.5-10.0)
[2022-03-09 14:18] LABS: Alanine Aminotransferase 16 U/L (6-35); Albumin Level 4.1 g/dL (3.5-5.1); Alkaline Phosphatase 102 U/L (38-126); Anion Gap 4 mmol/L (8-16); Aspartate Amino Transferase 46 U/L (14-36); Bilirubin,Total 0.2 mg/dL (0.2-1.3); Blood Urea Nitrogen 14 mg/dL (7-17); Calcium 8.8 mg/dL (8.4-10.2); Carbon Dioxide 27 mmol/L (22-30); Chloride 104 mmol/L (98-107); Cholesterol 147 mg/dL (0-200); Estimated Glomerular Filt Rate 53; Glucose 93 mg/dL (65-110); HDL Direct 50 mg/dL; Potassium 4.6 mmol/L (3.4-5.0); Sodium 135 mmol/L (137-145); Triglycerides 103 mg/dL (<150)
[2022-03-09 14:20] LABS: Hemoglobin A1C 5.4 % (<5.7)
[2022-03-09 14:32] LABS: LDL Cholesterol Direct 61 mg/dL
[2022-03-09 14:33] LABS: Microalbumin Urine Random < 6.0 mg/L (0-16.7)
[2022-03-09 14:34] LABS: MALB Creatinine Ratio < 10.7 mg/g (0-30)
[2022-03-09 14:41] LABS: Vitamin D 25 Hydroxy 60.2 ng/mL
[2022-03-09 14:51] LABS: Total Triiodothyronine (T3) 1.11 NG/ML (0.97-1.69)
[2022-03-09 15:26] LABS: Folic Acid 3.8 ng/mL (2.76->20)
== END 2022-03-09 07:59 | disposition home or self-care (01) ==
PROVIDERS: PCP Internal Medicine; Visit Provider Internal Medicine
DX: E78.2 Mixed hyperlipidemia (principal); E04.1 Nontoxic single thyroid nodule; R79.89 Other specified abnormal findings of blood chemistry; I10 Essential (primary) hypertension; E55.9 Vitamin D deficiency, unspecified; E11.9 Type 2 diabetes mellitus without complications; E05.90 Thyrotoxicosis, unspecified without thyrotoxic crisis or storm; E53.8 Deficiency of other specified B group vitamins
CPT/HCPCS: 36415; 80053; 80061; 82043; 82306; 82607; 82746; 83036; 84443; 84480; 85025

== ENCOUNTER 2022-08-31 08:57 | Outpatient (CLI) | payer MEDICARE, SELFPAY ==
[2022-08-31 16:23] LABS: Anion Gap 8 mmol/L (8-16); Blood Urea Nitrogen 21 mg/dL (7-17); Carbon Dioxide 29 mmol/L (22-30); Chloride 104 mmol/L (98-107); Estimated Glomerular Filt Rate 60; Glucose 82 mg/dL (65-110); Potassium 4.4 mmol/L (3.4-5.0); Sodium 141 mmol/L (137-145)
== END 2022-08-31 08:58 | disposition home or self-care (01) ==
LOC: ANHWCLAB 08:58
PROVIDERS: PCP Internal Medicine; Visit Provider Nurse Practitioner Family
DX: E11.9 Type 2 diabetes mellitus without complications (principal)
CPT/HCPCS: 36415; 80048

== ENCOUNTER 2022-12-22 15:36 | Emergency (ER) | payer MEDICARE, SELFPAY ==
[2022-12-22 15:50] VITALS: BP 175/97; PULSE 95; RESP 16; TEMP 37.2; O2SAT 99
[2022-12-22 15:53] VITALS: BP 175/97; PULSE 95; RESP 16; TEMP 37.2; O2SAT 99
--- NOTE | 2022-12-22 16:09 | ED.WOUNDLAC ---
HPI - Wound/Laceration General Chief Complaint: Wound/Laceration Stated Complaint: cut left thumb Time Seen by Provider: 12/22/22 16:09 Source: patient Mode of arrival: ambulatory Limitations: no limitations History of Present Illness HPI narrative: 82-year-old female presents with laceration to left 2nd finger. Patient states that she was using a knife to open a salad package and cut herself. States that it bled for approximately 1 hour and went not steps she decided that she may need sutures. Distal neurovascularly and range of motion intact. All systems reviewed and negative except as noted above. Related Data Home Medications Medication Instructions Recorded Confirmed fesoterodine 8 mg tablet,extended mg PO 12/22/22 12/22/22 release 24 hr (Toviaz) rosuvastatin 20 mg tablet mg 12/22/22 Allergies Allergy/AdvReac Type Severity Reaction Status Date / Time No Known Allergies Allergy NONE Verified 12/22/22 15:50 Review of Systems Review of Systems: CONSTITUTIONAL: Denies fever, chills, or sweats. EYES: Denies visual changes, redness, or discharge. ENT: Denies rhinorrhea, congestion, sore throat, or otalgia. CARDIOVASCULAR: Denies chest pain, palpitations, or edema. RESPIRATORY: Denies cough or dyspnea. GASTROINTESTINAL: Denies abdominal pain, nausea, vomiting, or diarrhea. GENITOURINARY: Denies dysuria or hematuria. SKIN: Denies rash or itching. Reports laceration to left index finger. MUSCULOSKELETAL: Denies back pain, joint pain, or myalgia. NEUROLOGIC: Denies headache, numbness, or weakness. PSYCHIATRIC: Denies anxiety or depression. All other systems reviewed are negative, except as documented in HPI. [facility] Past Medical History Medical History (Updated 12/22/22 @ 16:25 by Svetlana Loredo NP) Anxiety Arthritis Arthritis of right knee Diabetes mellitus Epistaxis HLD (hyperlipidemia) HTN (hypertension) Left foot drop Melena Obstructive sleep apnea Rectal polyp Shingles Traumatic injury of foot Surgical History Surgical History (Updated 09/01/22 @ 12:56 by Anoop Peterson CMA) H/O arthroscopy of right knee H/O section H/O colonoscopy History of back surgery History of left knee replacement Family History Family History Mother Cerebrovascular accident Family history of heart disease in male family member before age 55 Diabetes mellitus Heart disease Father Family history of malignant neoplasm of urinary bladder Sibling Hypertension Heart disease Cerebrovascular accident Other Alcoholism Social History Social History (Updated 09/07/22 @ 10:52 by Chhaya Mitchell MA) Smoking status: Never smoker Second hand tobacco smoke exposure: No Alcohol intake: never Substance use: never Lack of Transportation: No Lack of Food: Sometimes True Current Housing: I Have Housing Concerned About Future Housing: No Difficulty Paying Gas/Electric Bills: No Difficulty Paying for Meds: No Currently Unemployed: No Education: High School Diploma/GED Difficulty w/ Childcare or Family Care: No Living arrangements: with family Gender identity (if verbalized by the patient): Female Sexual Orientation (if Verbalized by the Patient): Straight or Heterosexual Spiritual care concerns: No Comments At time of signature, agree with nursing past medical, surgical, social and family history. There is no relevant family history pertinent to the presenting complaint. Exam Narrative: GENERAL: This is a well-nourished, well-developed patient, in no apparent distress. HEAD: normocephalic, atraumatic. EYES: PERRL. Sclera clear/white. Vision is grossly intact. EARS: External ears normal NOSE: External nose normal NECK: Neck supple, non-tender without lymphadenopathy, masses or thyromegaly. CARDIOVASCULAR: Regular rate and rhythm without murmurs, gallops, or rubs. RESPIRATORY: Clear to auscultat
[2022-12-22] MEDS: TETANUS/DIPHTHERIA TOXOIDS ADSORB 0.5 ML VIAL (*BKC) IM (16:25)
== END 2022-12-22 16:35 | disposition home or self-care (01) ==
PROVIDERS: Emergency Provider Nurse Practitioner Family
DX: S61.211A Laceration without foreign body of left index finger without damage to nail, initial encounter (principal); W26.0XXA Contact with knife, initial encounter; Z23 Encounter for immunization; E11.9 Type 2 diabetes mellitus without complications; E78.5 Hyperlipidemia, unspecified; I10 Essential (primary) hypertension; M17.11 Unilateral primary osteoarthritis, right knee
CPT/HCPCS: 12001; 90471; 90714; 99212; G0463

== ENCOUNTER 2022-12-28 15:19 | Outpatient (CLI) | payer MEDICARE, SELFPAY ==
[2022-12-28 17:06] LABS: Anion Gap 6 mmol/L (8-16); Blood Urea Nitrogen 17 mg/dL (7-17); Calcium 8.8 mg/dL (8.4-10.2); Carbon Dioxide 29 mmol/L (22-30); Chloride 103 mmol/L (98-107); Estimated Glomerular Filt Rate > 60; Glucose 92 mg/dL (65-110); HDL Direct 47 mg/dL; Potassium 3.9 mmol/L (3.4-5.0); Sodium 138 mmol/L (137-145)
[2022-12-28 17:16] LABS: LDL Cholesterol Direct 59 mg/dL
[2022-12-28 18:33] LABS: Free T4 Free Thyroxine 1.31 ng/mL (0.78-2.19); Vitamin D 25 Hydroxy 44.4 ng/mL
== END 2022-12-28 15:20 | disposition home or self-care (01) ==
LOC: ANHWCLAB 15:23
PROVIDERS: Visit Provider Internal Medicine Endocrinology, Diabetes & Metabolism
DX: R79.89 Other specified abnormal findings of blood chemistry (principal); M85.80 Other specified disorders of bone density and structure, unspecified site; E04.1 Nontoxic single thyroid nodule; E05.90 Thyrotoxicosis, unspecified without thyrotoxic crisis or storm
CPT/HCPCS: 36415; 80048; 82306; 83718; 83721; 84439; 84443

== ENCOUNTER 2023-03-03 13:06 | Outpatient (CLI) | payer MEDICARE, SELFPAY ==
--- NOTE | ~2023-03-03 | MM_ITS ---
EXAMINATION: MM screening [facility] BI w tyrone HISTORY: Screening mammogram TECHNIQUE: Craniocaudal and mediolateral oblique 3-D tomosynthesis images were obtained and synthetic 2-D images were generated. CAD analysis was submitted and interpreted. COMPARISON: 12/11/2021, 09/16/2020, 09/10/2019 BREAST PARENCHYMAL COMPOSITION: There are scattered areas of fibroglandular density. FINDINGS: No suspicious mass, calcification, or architectural distortion are identified in either janice ast to suggest malignancy. There has been no suspicious interval change. IMPRESSION: 1. No mammographic evidence of malignancy. 2. Recommend routine screening mammography in one year. BI-RADS Category 1: Negative Reviewed, dictated and finalized at location A.
== END 2023-03-03 13:07 | disposition home or self-care (01) ==
LOC: ANHIMG 13:15
PROVIDERS: PCP Family Medicine; Visit Provider Family Medicine
DX: Z12.31 Encounter for screening mammogram for malignant neoplasm of breast (principal)
CPT/HCPCS: 77063; 77067

== ENCOUNTER 2023-06-23 10:49 | Outpatient (CLI) | payer MEDICARE, SELFPAY ==
--- NOTE | 2023-06-23 11:32 | ECG_ITS ---
Measurements Intervals [place] Rate: 77 P: 16 CT: 129 QRS: 45 QRSD: 126 T: 51 QT: 399 QTc: 454 Interpretive Statements SINUS RHYTHM RIGHT BUNDLE BRANCH BLOCK [120+ ms QRS DURATION, UPRIGHT V1, 40+ ms S IN I/aVL/V4/V5/V6] COMPARED TO ECG 10/12/2019 12:56:24 NO SIGNIFICANT CHANGES Electronically Signed On 06-23-2023 11:51:56 CDT by Klaudia Donovan M.D.
== END 2023-06-23 10:50 | disposition home or self-care (01) ==
PROVIDERS: PCP Family Medicine; Visit Provider Nurse Practitioner Family
DX: R07.9 Chest pain, unspecified (principal); I45.10 Unspecified right bundle-branch block
CPT/HCPCS: 93005

== ENCOUNTER 2023-06-28 14:20 | Outpatient (CLI) | payer MEDICARE, SELFPAY ==
[2023-06-28 18:33] LABS: Thyroid Stimulating Hormone 0.595 uIU/mL (0.465-4.680)
== END 2023-06-28 14:21 | disposition home or self-care (01) ==
LOC: ANHWCLAB 14:21
PROVIDERS: PCP Family Medicine; Visit Provider Internal Medicine Endocrinology, Diabetes & Metabolism
DX: E05.90 Thyrotoxicosis, unspecified without thyrotoxic crisis or storm (principal); M85.80 Other specified disorders of bone density and structure, unspecified site
CPT/HCPCS: 36415; 84439; 84443

== ENCOUNTER 2023-08-25 09:55 | Outpatient (CLI) | payer MEDICARE, SELFPAY ==
--- NOTE | ~2023-08-25 | NM_ITS ---
EXAMINATION: NM raoul stress w perfusion DATE: 08/25/2023 12:39 CDT INDICATION: Dyspnea TECHNIQUE: Rest images were obtained following intravenous administration of 8.5 mCi Tc99m tetrofosmi n (Myoview). The patient was infused intravenously with Lexiscan (regadenoson). Then, 27.6 mCi Tc99m tetrofosmin (Myoview) was administered intravenously, and stress images were obtained. Data was recon structed into short axis and horizontal and vertical long axis SPECT images. Gated SPECT images were also obtained. COMPARISON: None. FINDINGS: There is no definite reversible or fixed perfusion abnormality to suggest ischemia or infar ction. There is no segmental wall motion abnormality. Left ventricular ejection fraction measures 7 5%. IMPRESSION: 1. No definite ischemia or infarct. 2. Normal left ventricular ejection fraction measuring 75%. Reviewed, dictated and finalized at location B.
--- NOTE | 2023-08-25 10:31 | EST_ITS ---
Patient Info Name: Mayra Clayton Age: 82 years : 1940 Gender: Female Ht: 60 in Wt: 160 lbs BSA: 1.78 m2 HR: 88 bpm BP: 142 / 87 mmHg Heart Rhythm: Sinus Rhythm Exam Date: 08/25/2023 10:59 AM Exam Location: [facility] Stress Patient Status: Outpatient Admit Date: 08/25/2023 Staff Ordering Physician: Hunter Ulloa DO Attending Provider: Hunter Ulloa DO Exercise Technologist: Cookie Dumont CT Exam Type: CA stress raoul w NM Study Info Indications R06.09 - Other forms of dyspnea A regadenoson stress test was performed. Summary 1. 1. Negative lexiscan stress test for ischemic ST changes by ECG criteria. 2. 2. Baseline hypertension. 3. 3. Nuclear scan to follow and will be reported separately. Please correlate with it. 4. 4. Patient informed of the above results. Protocol: Lexiscan Stress ECG Details Stage: REST Duration (min): 4 min : 20 sec HR (bpm): 87 SBP (mmHg): 142 DBP (mmHg): 87 Stage: REST Duration (min): 10 min : 32 sec HR (bpm): 89 SBP (mmHg): 142 DBP (mmHg): 87 Stage: STAGE 1 Duration (min): 0 min : 59 sec HR (bpm): 105 SBP (mmHg): 132 DBP (mmHg): 95 Stage: RECOVERY Duration (min): 1 min : 0 sec HR (bpm): 110 SBP (mmHg): 132 DBP (mmHg): 95 Stage: RECOVERY Duration (min): 2 min : 0 sec HR (bpm): 107 SBP (mmHg): 132 DBP (mmHg): 95 Stage: RECOVERY Duration (min): 3 min : 0 sec HR (bpm): 103 SBP (mmHg): 145 DBP (mmHg): 84 Stage: RECOVERY Duration (min): 3 min : 2 sec HR (bpm): 104 SBP (mmHg): 145 DBP (mmHg): 84 Rest HR: 89 bpm Peak HR: 112 bpm Rest Sys BP: 142 mmHg Peak Sys BP: 145 mmHg Max Pred HR: 137 bpm % Max Pred HR: 82 % Target HR: 116 bpm Max RPP: 16,240 bpm*mmHg Termination Reason: Completed protocol Cardiac Symptoms: Shortness of breath Total Time: 1 min : 0 sec Rest Hwang BP: 87 mmHg Peak Hwang BP: 84 mmHg Total Dose: 0.4 mg Resting ECG Sinus rhythm, RBBB. Stress ECG No ST changes. Arrhythmias None. Report Signatures
== END 2023-08-25 09:56 | disposition home or self-care (01) ==
PROVIDERS: PCP Family Medicine; Visit Provider Internal Medicine Cardiovascular Disease
DX: R06.09 Other forms of dyspnea (principal); I10 Essential (primary) hypertension
CPT/HCPCS: 78452; 93017; A9502; J2785

== ENCOUNTER 2024-01-19 11:00 | Outpatient (RCR) | payer MEDICARE, SELFPAY ==
--- NOTE | 2023-12-15 14:51 | PTOPEVAL1 ---
Assessment and note entered by Torsten Maria Evaluation Information Assessment Status Evaluation Diagnosis left drop foot, gait abnormality Onset 11/24/23 Subjective Information Pt. reports she developed drop foot on the left side several months ago. She states that she was fitted for her current AFO several months ago. She states that she was participating in PT toward the end of last year, but was not pleased with her progress during treatment. She states that she has had no recent falls, but has had several losses of balance recently. She reports that she is still active and continues to drive. She reports that she does all her own IADL's without assistance. She states that she uses a cane with ambulation to assist with preventing her from falling. She states that she does have 13 steps at home and does continue to navigate those steps one at a time. She reports that her balance and inability to walk straight still concerns her. She reports that her goal is to improve her walking to help prevent any falls. Reported Pain Level Pain Score 8: Self Report Assessment PT Clinical Summary Pt. is an 83 year old female who enters the clinic due to developed left drop foot and impaired balance. She presents with high fall risk, impaired gait, impaired balance, l.e. weakness and functional decline. Continued skilled PT is indicated in order to improve these areas to allow for improved safety with IADL performance. Plan of Care Interventions Gait Training,Manual Therapy,Neuro Re-education, Patient/Caregiver Educati,Therapeutic Activities, Therapeutic Exercise PT Services Indicated Yes Treatment Frequency and 2x/week x 10 visits Duration These treatments will address the objective and functional deficits as defined above. The patient will be advanced safely and appropriately in order for the patient to progress towards his/her prior level of function. Additional exercises will be introduced and as well as a comprehensive home exercise program upon discharge, if needed, ?to ensure carryover of functional gains achieved in the clinic. This treatment plan has been reviewed and agreement upon by the patient.
--- NOTE | 2023-12-15 14:52 | OPREHPOC ---
Outpatient Therapy Plan of Care This is a Multidisciplinary Plan of Care that may contain components documented by all disciplines (PT, OT, and ST.) PT Problem 1 PT Problem #1 Knowledge Deficit PT Goal 1 Goal Independent with a HEP addressing l.e. strength. Target Visit 2 PT Problem 2 PT Problem #2 Impaired Balance PT Goal 1 Goal Improve tinetti score to 22 or greater indicating improved balance and function Target Visit 10 PT Problem 3 PT Problem #3 Impaired Functional Mobil PT Goal 1 Goal Pt. will complete the 6 minute walk test with a distance of 800' or greater indicating improved gait efficiency and endurance. Target Visit 10 PT Problem 4 PT Problem #4 Impaired Strength PT Goal 1 Goal Pt. will present with 4/5 bilateral hip abduction strength to improve stability with standing activities. Target Visit 10
--- NOTE | 2024-01-19 11:53 | PTOPDC ---
Assessment and note entered by Torsten Maria Evaluation Information Assessment Status Discharge Diagnosis left foot drop, gait abnormality Onset 11/24/23 Subjective Information Pt. reports that she is walking better. She reports that she has noticed some back pain after getting out of a chair recently, which has slowed her down. She reports she is rarely using her cane. she states that she has been going up and down her steps frequently without any complication and states she has appropriate handrails. She states that she is pleased with her progress and is ready for discharge. Reported Pain Level Pain Score 5: Self Report Assessment PT Clinical Summary Pt. has met majority of goals established at the initial evaluation. she demonstrates decreased fall risk with the tinetti and improved her LEFS score by greater than 15%. At this time provided the pt. with additional trunk mobility and core stabilization activities to further improve strength and address any back pain. She will be discharged from our care at this time. Plan of Care PT Services Indicated No
== END 2024-01-19 12:32 | disposition home or self-care (01) ==
LOC: ANHPT 11:00
PROVIDERS: PCP Family Medicine; Visit Provider Podiatrist Foot & Ankle Surgery
DX: M21.372 Foot drop, left foot (principal); R26.9 Unspecified abnormalities of gait and mobility
CPT/HCPCS: 97110; 97112; 97161; 97750

== ENCOUNTER 2024-02-17 10:34 | Outpatient (CLI) | payer MEDICARE, SELFPAY ==
[2024-02-17 11:19] LABS: Alanine Aminotransferase 15 U/L (6-35); Albumin Level 4.2 g/dL (3.5-5.1); Alkaline Phosphatase 96 U/L (38-126); Anion Gap 4 mmol/L (4-12); Aspartate Amino Transferase 22 U/L (14-36); Bilirubin,Total 0.5 mg/dL (0.2-1.3); Blood Urea Nitrogen 23 mg/dL (7-17); Calcium 9.3 mg/dL (8.4-10.2); Carbon Dioxide 31 mmol/L (22-30); Chloride 103 mmol/L (98-107); Cholesterol 267 mg/dL (0-200); Estimated Glomerular Filt Rate 60; Glucose 119 mg/dL (65-110); HDL Direct 45 mg/dL; Magnesium 2.1 mg/dL (1.6-2.3); Potassium 4.2 mmol/L (3.4-5.0); Sodium 138 mmol/L (137-145); Triglycerides 136 mg/dL (<150)
[2024-02-17 11:30] LABS: LDL Cholesterol Direct 188 mg/dL
== END 2024-02-17 10:35 | disposition home or self-care (01) ==
LOC: ANHLAB 10:38
PROVIDERS: PCP Family Medicine; Referring Provider Nurse Practitioner Family; Visit Provider Internal Medicine Cardiovascular Disease
DX: I10 Essential (primary) hypertension (principal)
CPT/HCPCS: 36415; 80053; 80061; 83735

== ENCOUNTER 2024-04-18 07:10 | Outpatient (CLI) | payer MEDICARE, SELFPAY ==
[2024-04-18 08:27] LABS: Alanine Aminotransferase 15 U/L (6-35); Alkaline Phosphatase 91 U/L (38-126); Anion Gap 5 mmol/L (4-12); Aspartate Amino Transferase 24 U/L (14-36); Bilirubin,Total 0.7 mg/dL (0.2-1.3); Blood Urea Nitrogen 18 mg/dL (7-17); Calcium 8.9 mg/dL (8.4-10.2); Carbon Dioxide 28 mmol/L (22-30); Chloride 107 mmol/L (98-107); Cholesterol 146 mg/dL (0-200); Estimated Glomerular Filt Rate 60; Glucose 95 mg/dL (65-110); HDL Direct 41 mg/dL; Potassium 4.2 mmol/L (3.4-5.0); Sodium 140 mmol/L (137-145); Triglycerides 115 mg/dL (<150)
[2024-04-18 08:38] LABS: LDL Cholesterol Direct 80 mg/dL
== END 2024-04-18 07:11 | disposition home or self-care (01) ==
LOC: ANHLAB 07:14
PROVIDERS: PCP Family Medicine; Visit Provider Internal Medicine Cardiovascular Disease
DX: E78.5 Hyperlipidemia, unspecified (principal)
CPT/HCPCS: 36415; 80053; 80061

== ENCOUNTER 2024-07-05 11:51 | Outpatient (CLI) | payer MEDICARE, SELFPAY ==
[2024-07-05 12:24] LABS: Hematocrit 39.9 % (37.0-47.0); Mean Corpuscular HGB Conc 32.6 g/dl (32-36); Mean Corpuscular Volume 91.9 fl (80-100); Mean Platelet Volume 10.3 fl (7.4-10.4); Platelet Count Result 227 k/mm3 (150-375); Red Blood Count 4.34 M/mm3 (4.2-5.4); Red Cell Distribution Width 14.6 % (11.5-14.5); White Blood Count 6.9 K/mm3 (4.5-10.0)
[2024-07-05 12:45] LABS: Alanine Aminotransferase 14 U/L (6-35); Albumin Level 3.9 g/dL (3.5-5.1); Alkaline Phosphatase 97 U/L (38-126); Aspartate Amino Transferase 24 U/L (14-36); Bilirubin,Total 0.3 mg/dL (0.2-1.3)
[2024-07-05 13:14] LABS: Thyroid Stimulating Hormone 0.749 uIU/mL (0.465-4.680)
[2024-07-05 14:24] LABS: Vitamin D 25 Hydroxy 35.8 ng/mL
[2024-07-05 14:39] LABS: Free T4 Free Thyroxine 1.16 ng/mL (0.78-2.19)
== END 2024-07-05 11:52 | disposition home or self-care (01) ==
PROVIDERS: PCP Family Medicine; Referring Provider Internal Medicine Endocrinology, Diabetes & Metabolism; Visit Provider Family Medicine
DX: D64.9 Anemia, unspecified (principal); E05.90 Thyrotoxicosis, unspecified without thyrotoxic crisis or storm; E78.5 Hyperlipidemia, unspecified; E53.8 Deficiency of other specified B group vitamins; E55.9 Vitamin D deficiency, unspecified; R79.89 Other specified abnormal findings of blood chemistry
CPT/HCPCS: 36415; 80076; 82306; 82607; 82728; 84439; 84443; 85027

== ENCOUNTER 2024-10-11 07:15 | Outpatient (CLI) | payer MEDICARE, SELFPAY ==
--- NOTE | 2024-10-11 07:42 | ECHO_ITS ---
Patient Info Name: Mayra Clayton Age: 83 years : 1940 Gender: Female Ht: 64 in Wt: 180 lbs BSA: 1.95 m2 HR: 90 bpm BP: 147 / 81 mmHg Heart Rhythm: Sinus Rhythm Technical Quality: Fair Exam Date: 10/11/2024 7:48 AM Exam Location: Echo Lab Patient Status: Outpatient Admit Date: 10/11/2024 Staff Ordering Physician: Hunter Ulloa DO Podiatric Surgeon: Melissa Gilliland RDCS Attending Provider: Hunter Ulloa DO Referring Physician: Artemio MOURA; Exam Type: CA echo doppler color flow Study Info Indications R01.1 - Cardiac murmur, unspecified Complete two-dimensional, color flow and Doppler transthoracic echocardiogram is performed. Summary 1. Complete two-dimensional, color flow and Doppler transthoracic echocardiogram is performed. 2. Left ventricular chamber dimension is normal. 3. Left ventricular systolic function is normal, estimated at 65-70%. 4. There is mild concentric increased left ventricular wall thickness. 5. The left ventricular diastolic function is grade I diastolic dysfunction. 6. E/e' 16 is elevated. 7. Left atrial chamber dimension is mildly enlarged. 8. 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 9. There is mild to moderate aortic valve stenosis with a peak velocity of 246 cm/s, mean gradient of 12 mmHg, and aortic valve area of 1.5 cm2. 10. There is mild aortic valve regurgitation. 11. There is trace mitral valve regurgitation. 12. There is mild tricuspid valve regurgitation. 13. No pulmonary hypertension, estimated pulmonary arterial systolic pressure is 29 mmHg. Left Ventricle E/e' 16 is elevated. Left ventricular chamber dimension is normal. Left ventricular systolic function is normal, estimated at 65-70%. There is mild concentric increased left ventricular wall thickness. The left ventricular diastolic function is grade I diastolic dysfunction. Right Ventricle Right ventricular systolic function is normal and with normal TAPSE 2.3 cm. Right ventricular chamber dimension is normal. Left Atria Left atrial chamber dimension is mildly enlarged. Right Atria Right atrial chamber dimension is normal. Aortic Valve The aortic valve is trileaflet. 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 There is mild to moderate aortic valve stenosis with a peak velocity of 246 cm/s, mean gradient of 12 mmHg, and aortic valve area of 1.5 cm2. There is mild aortic valve regurgitation. Pulmonic Valve There is no pulmonic regurgitation. Mitral Valve There is no mitral valve stenosis. There is trace mitral valve regurgitation. Tricuspid Valve There is mild tricuspid valve regurgitation. No pulmonary hypertension, estimated pulmonary arterial systolic pressure is 29 mmHg. Pericardium/Pleural There is no pericardial effusion. Inferior Vena Cava Normal inferior vena cava with >50% collapse upon inspiration consistent with normal right atrial pressure, 5 mmHg. Aorta The aortic root size at the sinus of Valsalva is normal. Left Ventricular Outflow Tract Name Value Normal LVOT 2D LVOT Diameter 2.0 cm LVOT Doppler LVOT Peak Gradient 5 mmHg LVOT Mean Gradient 3 mmHg LVOT VTI 24 cm LVOT VTI/AV VTI Ratio 0.5 LVOT Stroke Volume 71 ml LVOT CO 5.7 l/min LVOT CI 2.9 l/min/m2 Pulmonic Valve Name Value Normal RVOT Doppler RVOT Peak Gradient 2 mmHg PV Doppler PV Peak Gradient 4 mmHg Mitral Valve Name Value Normal MV Doppler MV Decel Sac 527 cm/s2 MV PHT 51 ms MV Area (PHT) 4.3 cm2 4.0-5.0 MV Diastolic Function MV E Peak Velocity 93 cm/s MV A Peak Velocity 150 cm/s MV E/A 0.6 MV Decel Time 177 ms MV Annular TDI MV E/e' (Septal) 16.6 <=8.0 MV E/e' (Lateral) 17.0 <=8.0 MV E/e' (Average) 16.8 Tricuspid Valve Name Value Normal TV Regurgitation Doppler TR Peak Velocity 243 cm/s TR Peak Gradient 24 mmHg Estimated PAP/RSVP RA Pressure 5 mmHg <=5 PA Systolic Pressure 29 mmHg <36 RV Systolic Pressure 29 mmHg <36 Aorta Name Value Normal Ascending Aorta Ao Root Diameter (MM) 3.3 cm Ao Root Diam Index (MM) 1.7 cm/m2 Aortic Valve Name Value Normal AV Doppler AV Peak Velocity 246 cm/s AV Peak Gradient 24 mmHg AV Mean Gradient 12 mmHg AV VTI 49 cm AV Area (Cont Eq VTI) 1.5 cm2 >=3.0 AV Area (Cont Eq Barry) 1.4 cm2 AV Regurgitation 2D LVOT Area 3.0 cm2 AV Regurgitation Doppler AR Decel Time 1,282 ms AR Decel Sac 387 cm/s2 AR PHT 372 ms Ventricles Name Value Normal LV Dimensions 2D/MM IVS Diastolic Thickness (2D) 1.1 cm 0.6-1.0 LVID Diastole (2D) 4.1 cm 3.8-5.2 LVIW Diastolic Thickness (2D) 0.9 cm 0.6-0.9 LVID Systole (2D) 2.8 cm 2.2-3.5 LVOT Diameter 2.0 cm LV Mass (2D Cubed) 127.56 g 67.00-162.00 LV Mass Index (2D Cubed) 65 g/m2 43-95 Relative Wall Thickness (2D) 0.42 LV Fractional Shortening/Ejection Fraction 2D/MM LV Fractional Shortening (2D) 33 % 27-45 LV EF (2D Teicholz) 61 % 54-74 LV Diastolic Volume (4C MOD) 51 ml LV EF (4C MOD) 72 % LV Diastolic Volume (2C MOD) 42 ml LV EF (2C MOD) 65 % LV Diastolic Volume (BP MOD) 47 ml 46-106 LV Diastolic Volume Index (BP MOD) 24 ml/m2 29-61 LV Systolic Volume (BP MOD) 15 ml 14-42 LV Systolic Volume Index (BP MOD) 8 ml/m2 8-24 LV EF (BP MOD) 69 % 54-74 LV Diastolic Length (4C) 7.1 cm LV Systolic Length (4C) 5.5 cm LV Stroke Volume (4C MOD) 36 ml Atria Name Value Normal LA Dimensions LA Dimension (MM) 3.5 cm 2.7-3.8 LA Volume (4C A-L) 39 ml LA Volume (BP A-L) 44 ml RA Dimensions RA Area (4C) 12.1 cm2 <=18.0 Report Signatures
== END 2024-10-11 07:16 | disposition home or self-care (01) ==
PROVIDERS: PCP Family Medicine; Visit Provider Internal Medicine Cardiovascular Disease
DX: R01.1 Cardiac murmur, unspecified (principal); I08.0 Rheumatic disorders of both mitral and aortic valves; I35.8 Other nonrheumatic aortic valve disorders; I35.0 Nonrheumatic aortic (valve) stenosis
CPT/HCPCS: 93306

== ENCOUNTER 2024-12-05 09:13 | Outpatient (CLI) | payer MEDICARE, SELFPAY ==
--- NOTE | ~2024-12-05 | XR_ITS ---
Right Knee Technique: AP, lateral, and sunrise views were obtained. Clinical History: Osteoarthritis Findings: No fracture or dislocation is seen. There is severe tricompartmental osteoarthritic change. There is extensive osteophyte formation and medial compartment narrowing.. Soft tissues are unremark able. No joint effusion is seen. Impression: Severe tricompartmental osteoarthritis. Reviewed, dictated and finalized at location . 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
--- OUTSIDE RECORDS SUMMARY | 2024-12-05 09:50 | XMS_ITS | Continuity of Care Document ---
Author Organization [facility] Address [address] [place] [address] [place] [address] Phone Care Team Providers Care Diesel Truck Mechanic Name Role Phone Brien Sutton Unavailable Unavailable Procedures Procedure Date Eye Exam Established Pt Ophthalmoscopy, Subsequent Eye Exam Established Pt Ophthalmoscopy, Subsequent Office/outpatient Visit, Est Ophthalmoscopy, Subsequent Eye Exam Established Pt Visual Functional Status Assessed Ophthalmoscopy, Subsequent Advance Directives Directive Yes / No Effective Date File Name No Information Encounters Encounter Description Practice Location Reason(s) For Visit Diagnoses Date Provider Providers Copied on [facility]counter [facility], [address] [place] [address] [address], [place], [place], [id number], tel:[phone] [facility] No Information Lesley Tesfaye. [address] [place], [address], [place]. tel:[phone] Referring Provider: Brien Cooper, [address] [place], [address]. tel:[phone] [facility], [address] [place] [address] [address], [place], [place], [address], [place] tel:[phone] [facility] No Information Lesley Tesfaye. [address] [place], [address], [place]. tel:[phone] Referring Provider: Brien Cooper, [address] [place], [place], [facility]. tel:[phone] Office/outpat ient Visit, Est [facility] Eye [facility], [address], [place], [place], [address], tel:[phone] [facility] No Information Lesley Brien. [address] [place], [address], . tel:[phone] [facility], [address], [place], [place], [address], [place] tel:[phone] [facility] No Information Lesley Tesfaye. [address] [place], [address], [place]. [phone] Family History Family Member Type Diagnosis Age At Onset No Information Payers Payer name Insurance type Covered green party ID Jeff ortez(s) [place] BL [id number] [facility] [id number] Social History Type Description Quantity Date Captured Comments Sex Female Smoking Status No Information Chief Complaint And Reason For Visit No Information Reason For Referral Reason For Referral No Information History Of Present Illness Encounter Date Complaint History Of Prese nt Illness No Information Functional Status Date Functional Assessmen t No Information Instructions Date Instruction Additional Infor mation No Information Assessments Type Assessment Date No Information Patient Care Teams Name Effective Dates (start - stop) Status Members No Information
--- OUTSIDE RECORDS SUMMARY | 2024-12-05 09:50 | XMS_ITS | CONTINUITY OF CARE DOCUMENT ---
Author Name julio kim Address Unknown Organization [facility] Address [address] [place] [address] [address] [place] [address] Phone [phone] Care Team Providers Care Ampoule Inspector Name Role Phone Adrian TAVERA, Randa Unavailable [phone] MINNIE TAVERA, JOB Unavailable [phone] JENNIFER TAVERA, ELIJAH Unavailable INSURANCE PROVIDERS Payer name Policy type / Coverage type [place]ren red democrat ID [id number] [employer] [id number] [place] [employer] Medicare [id number]
== END 2024-12-05 09:14 | disposition home or self-care (01) ==
PROVIDERS: PCP Family Medicine; Visit Provider Orthopaedic Surgery
DX: M17.11 Unilateral primary osteoarthritis, right knee (principal)
CPT/HCPCS: 73564

== ENCOUNTER 2024-12-27 13:45 | Outpatient (CLI) | payer MEDICARE, SELFPAY ==
--- NOTE | ~2024-12-27 | DEXA_ITS ---
Bone Density Report Name: REYNALDO BECK Age: 84 Sex: Female Ethnicity: White Date of : 1940 Indication: osteopenia; height loss; Referring Provider: MACARENA REYNOLDS Study: Bone densitometry was performed. Exam Date: December 27, 2024 Accession number: [id number] Bone Density: Region BMD T-score Z-score Classification AP Spine(L1, L2) 0.906 -0.7 2.0 Normal Femoral Neck (Left) 0.893 0.4 2.9 Normal Total Hip (Left) 0.828 -0.9 1.4 Normal Femoral Neck (Right) 0.776 -0.7 1.9 Normal Total Hip (Right) 0.799 -1.2 1.2 Osteopenia Total Hip Mean 0.814 -1.1 1.3 Osteopenia World Health Organization criteria for BMD impression classify patients as: Normal (T-score at or above -1.0), Osteopenia (T-score between -1.0 and -2.5), or Osteoporosis (T-score at or below -2.5). 10-year Fracture Risk(1): Major Osteoporotic Fracture 9.8% Hip Fracture 1.9% Reported Risk Factors: [place] (), Neck BMD=0.776, BMI=35.3 (1) FRAX(R) Version 3.08. Fracture probability calculated for an untreated patient. Fracture probability may be lower if the patient has received treatment. Previous Exams: Region Exam Age BMD T-score BMD Change BMD Change Date g/cm2 vs Baseline vs Previous AP Spine (L1-L2) 12/27/2024 84 0.906 -0.7 0.011 (1.2%)# 0.011 (1.2%)# 09/30/2021 80 0.895 -0.8 Total Hip(Left) 12/27/2024 84 0.828 -0.9 0.080 (10.6%)# 0.080 (10.6%)# 09/30/2021 80 0.749 -1.6 Total Hip(Right) 12/27/2024 84 0.799 -1.2 0.010 (1.3%)# 0.010 (1.3%)# 09/30/2021 80 0.789 -1.3 *Denotes significance at 95% confidence level, LSC for AP Spine = 0.022 g/cm2, LSC for Total Hip = 0.027 g/cm2 # Denotes dissimilar scan types or analysis methods Clinical Information Provided by Patient: Has used the following medications: Calcium Patient maximum height was 64 Menopause Age: 49 Onset of menses at age 12 Number of children 4 Impression: The patient has low bone mass, based on the Right Total Hip T-score. The patient has an estimated ten-year risk of hip fracture of 1.9% and an estimated ten-year risk of major fracture of 9.8%, based on the WHO FRAX algorithm. No significant bone loss was observed. Discussion: BONE DENSITY IS LOW AT ONE OR MORE SKELETAL SITES. This patient's lowest T-score is low at one or more skeletal sites. It meets the World Health Organization's (WHO) criteria for ?low bone mass? (T-score between -1.0 and -2.5). The patient's 10-year risk of fracture as calculated by FRAX is less than the threshold where pharmacological therapy is recommended by the National Osteoporosis Foundation (NOF). However, all treatment decisions require clinical judgment and consideration of individual patient factors, including patient preferences, comorbidities, previous drug use, risk factors not captured in the FRAX model (e.g., frailty, falls, vitamin D deficiency, increased bone turnover, interval significant decline in bone density) and possible under or overestimation of fracture risk by FRAX. The patient should follow a healthful lifestyle (good nutrition with adequate calcium and vitamin D, and appropriate weight-bearing exercise). Follow-Up: Consider repeating this study in 2 to 3 years to reassess this patient's status, or sooner if there is some new clinical indication. Reported by: DERRICK on 12/27/2024 2:35:00 PM. Reviewed, dictated and finalized at location A.
--- OUTSIDE RECORDS SUMMARY | 2024-12-27 15:42 | XMS_ITS | Continuity of Care Document ---
Author Organization [facility] Address [address] [place] [address] [place] [address] Phone Care Team Providers Care Neckties Painter Name Role Phone Brien Sutton Unavailable Unavailable [...] Diagnoses Date Provider Providers Copied on Encounter [facility], [address] [place] [address] [address], [place], [place], [id number], tel:[phone] [facility] No Information Lesley Tesfaye. [address] [place], [address], [place]. tel:[phone] Referring Provider: Brien Cooper, [address] [place], [address]. tel:[phone] [facility], [address] [place] [address] [address], [place], [place], [address], [place] tel:[phone] [facility] No Information Lesley Tesfaye. [address] [place], [address], [place]. tel:[phone] Referring Provider: Brien Cooper, [address] [place], [place], [facility]. tel:[phone] Office/outpat ient Visit, Est [facility] Eye [facility], [address], [place], [place], [address], tel:[phone] [facility] No Information Lesley Brien. [address] [place], [address], . tel:[phone] [facility], [address], [place], [place], [address], [place] tel:[phone] [facility] No Information Lesley Tesfaye. [address] [place], [address], [place]. [phone] Family History Family Member Type Diagnosis Age At Onset No Information Payers Payer name Insurance type Covered alliance party ID Jeff ortez(s) [place] BL [id number] [facility] [id number] Social History Type Description Quantity Date Captured [...]
--- OUTSIDE RECORDS SUMMARY | 2024-12-27 15:42 | XMS_ITS | CONTINUITY OF CARE DOCUMENT ---
Author Name julio kim Address Unknown Organization [facility] Address [address] [place] [address] [address] [place] [address] Phone [phone] Care Team Providers Care Spar Machine Operator Name Role Phone Adrian TAVERA, Randa Unavailable [phone] MINNIE TAVERA, JOB Unavailable [phone] JENNIFER TAVERA, ELIJAH Unavailable [phone] INSURANCE PROVIDERS Payer name Policy type / Coverage type [place] red alliance party ID [id number] [employer] 9 [id number] [place] [employer]IC[employer] Medicare [id number]
== END 2024-12-27 13:46 | disposition home or self-care (01) ==
LOC: ANHIMG 13:49
PROVIDERS: PCP Family Medicine; Visit Provider Internal Medicine Endocrinology, Diabetes & Metabolism
DX: M85.851 Other specified disorders of bone density and structure, right thigh (principal); M85.852 Other specified disorders of bone density and structure, left thigh; R73.03 Prediabetes; E05.90 Thyrotoxicosis, unspecified without thyrotoxic crisis or storm; Z78.0 Asymptomatic menopausal state
CPT/HCPCS: 77080

== ENCOUNTER 2024-12-27 14:50 | Outpatient (CLI) | payer MEDICARE, SELFPAY ==
[2024-12-27 15:21] LABS: Hematocrit 39.9 % (37.0-47.0); Hemoglobin 12.9 g/dL (12.0-15.0)
[2024-12-27 15:37] LABS: Albumin Level 3.9 g/dL (3.5-5.1); Estimated Glomerular Filt Rate > 60; Glucose 88 mg/dL (65-110)
[2024-12-27 15:58] LABS: Free T4 Free Thyroxine 1.22 ng/dL (0.78-2.19); Vitamin D 25 Hydroxy 35.2 ng/mL
--- OUTSIDE RECORDS SUMMARY | 2024-12-27 17:19 | XMS_ITS | Continuity of Care Document ---
Author Organization [facility] Address [address] [place] [address] [place] [address] Phone Care Team Providers Care Pantry Goods Maker Name Role Phone Brien Sutton Unavailable Unavailable [...] Diagnoses Date Provider Providers Copied on Encounter Located within [facility], [address] [place] [address] [address], [place], [place], [address], tel:[phone] [facility] No Information Lesley Tesfaye. [address] [place], [address], [place]. tel:[phone] Referring Provider: Brien Cooper, [address] [place], [address]. tel:[phone] Located within [facility], [address] [place] [address] [address], [place], [place], [address], [place] tel:[phone] [facility] No Information Lesley Tesfaye. [address] [place], [address], [place]. tel:[phone] Referring Provider: Brien Cooper, [address] [place], [place], [facility]. tel:[phone] Office/outpat ient Visit, Est [facility] Eye [facility], [address], [place], [place], [address], tel:[phone] [facility] No Information Lesley Brien. [address] [place], [address], . tel:[phone] Located within [facility], [address], [place], [place], [address], [place] tel:[phone] [facility] No Information Lesley Tesfaye. [address] [place], [address], [place]. [phone] Family History Family Member Type Diagnosis Age At Onset No Information Payers Payer name Insurance type Covered republican ID Jeff ortez(s) [place] BL [id number] [facility] [id number] Social History Type Description Quantity Date Captured [...]
--- OUTSIDE RECORDS SUMMARY | 2024-12-27 17:19 | XMS_ITS | CONTINUITY OF CARE DOCUMENT ---
Author Name julio kim Address Unknown Organization [facility] Address [address] [place] [address] [address] [place] [address] Phone [phone] Care Team Providers Care Thread Grinder Tool Name Role Phone Adrian TAVERA, Randa Unavailable MINNIE TAVERA, JOB Unavailable [phone] JENNIFER TAVERA, ELIJAH Unavailable INSURANCE PROVIDERS Payer name Policy type / Coverage type [place] red alliance party ID [place] [email or web address] [id number] [place] [employer]IC[employer] Medicare [id number]
[2024-12-27 19:25] LABS: Hemoglobin A1C 5.4 % (<5.7)
== END 2024-12-27 14:51 | disposition home or self-care (01) ==
LOC: ANHLAB 14:58
PROVIDERS: PCP Family Medicine; Referring Provider Orthopaedic Surgery; Visit Provider Internal Medicine Endocrinology, Diabetes & Metabolism
DX: E78.2 Mixed hyperlipidemia (principal); D64.9 Anemia, unspecified; E11.9 Type 2 diabetes mellitus without complications; E05.90 Thyrotoxicosis, unspecified without thyrotoxic crisis or storm; M85.80 Other specified disorders of bone density and structure, unspecified site; R79.89 Other specified abnormal findings of blood chemistry; E55.9 Vitamin D deficiency, unspecified
CPT/HCPCS: 36415; 82040; 82306; 82565; 82947; 83036; 84439; 84443; 85014; 85018

== ENCOUNTER 2025-01-01 14:34 | Outpatient (CLI) | payer MEDICARE, SELFPAY | END 2025-01-01 14:35 | disposition home or self-care (01) | PROVIDERS: PCP Family Medicine; Visit Provider Orthopaedic Surgery | DX: Z01.818 Encounter for other preprocedural examination (principal); M17.11 Unilateral primary osteoarthritis, right knee; M25.461 Effusion, right knee; M71.21 Synovial cyst of popliteal space [Baker], right knee | CPT/HCPCS: 73700 ==

== ENCOUNTER 2025-03-16 12:49 | Outpatient (CLI) | payer MEDICARE, SELFPAY ==
--- OUTSIDE RECORDS SUMMARY | 2025-03-16 12:59 | XMS_ITS | Continuity of Care Document ---
Author Organization [facility] Address [address] [place] [address] [place] [address] Phone Care Team Providers Care Composition Roofer Name Role Phone Brien Sutton Unavailable Unavailable [...] Diagnoses Date Provider Providers Copied on Encounter [facility], [address] [place] [address] [address], [place], [place], [address], tel:[phone] [facility] No Information Lesley Tesfaye. [address] [place], [address], [place]. tel:[phone] Referring Provider: Brien Cooper, [address] [place], [address]. tel:[phone] [facility], [address] [place] [address] [address], [place], [place], [address], [place] tel:[phone] [facility] No Information Lesley Tesfaye. [address] [place], [address], [place]. tel:[phone] Referring Provider: Brien Cooper, [address] [place], [place], [facility]. tel:[phone] Office/outpat ient Visit, Est [facility] Eye [facility], [address], [place], [place], [address], tel:[phone] [facility] No Information Lesley Brien. [address] [place], [address], . tel:[phone] [facility], [address], [place], [place], [address], [place] tel:[phone] [facility] No Information Lesley Tesfaye. [address] [place], [address], [place]. [phone] Family History Family Member Type Diagnosis Age At Onset No Information Payers Payer name Insurance type Covered republican ID Jeff ortez(s) [place] BL [id number] [facility] [id number] Social History Type Description Quantity Date Captured [...]
--- OUTSIDE RECORDS SUMMARY | 2025-03-16 12:59 | XMS_ITS | CONTINUITY OF CARE DOCUMENT ---
Author Name julio kim Address Unknown Organization [facility] Address [address] [place] [address] [address] [place] [address] Phone [phone] Care Team Providers Care International Trade Manager Name Role Phone Adrian TAVERA, Randa Unavailable MINNIE TAVERA, JOB Unavailable [phone] JENNIFER TAVERA, ELIJAH Unavailable INSURANCE PROVIDERS Payer name Policy type / Coverage type [place] red alliance party ID [place] [employer] [id number] [place] MEDIC[employer] Medicare [id number]
--- NOTE | 2025-03-16 15:11 | ECG_ITS ---
Test Date: 2025-03-16 15:22:37 Measurements Intervals [place] Rate: 77 P: 36 MI: 157 QRS: 20 QRSD: 140 T: 11 QT: 443 QTc: 502 Interpretive Statements SINUS RHYTHM RIGHT BUNDLE BRANCH BLOCK [120+ ms QRS DURATION, UPRIGHT V1, 40+ ms S IN I/aVL/V4/V5/V6] WARNING: DATA QUALITY MAY AFFECT INTERPRETATION ABNORMAL ECG No previous ECG available for comparison Electronically Signed On 03-17-2025 08:01:01 CDT by Gume Díaz M.D.
[2025-03-16 16:15] LABS: Basophils Absolute Auto 0.1 K/mm3 (0.0-0.1); Basophils Percent Auto 0.6 % (0.2-1.2); Eosinophils Absolute Auto 0.2 K/mm3 (0-0.3); Hematocrit 41.3 % (37.0-47.0); Hemoglobin 12.7 g/dL (12.0-15.0); Immature Granulocyte Absolute 0.03 K/mm3 (0.00-0.031); Immature Granulocyte Percent A 0.3 % (0-0.5); Lymphocytes Absolute Auto 2.17 K/mm3 (0.9-3.2); Lymphocytes Percent Auto 25.1 % (18.3-44.2); Mean Corpuscular HGB Conc 30.8 g/dl (32-36); Mean Corpuscular Hemoglobin 28.7 pg (26-34); Mean Corpuscular Volume 93.2 fl (80-100); Mean Platelet Volume 10.6 fl (7.4-10.4); Monocytes Absolute Auto 0.8 K/mm3 (0.1-0.6); Monocytes Percent Auto 9.5 % (2.6-8.5); Neutrophils Absolute Auto 5.4 K/mm3 (1.3-6.7); Neutrophils Percent Auto 62.5 % (45.5-73.1); Platelet Count Result 261 k/mm3 (150-375); Red Blood Count 4.43 M/mm3 (4.2-5.4); Red Cell Distribution Width 13.8 % (11.5-14.5); White Blood Count 8.6 K/mm3 (4.5-10.0)
[2025-03-16 16:23] LABS: Urine Cotinine NEGATIVE
[2025-03-16 16:24] LABS: Albumin Level 4.1 g/dL (3.5-5.1)
[2025-03-16 16:26] LABS: Anion Gap 9 mmol/L (4-12); Blood Urea Nitrogen 16 mg/dL (7-17); Carbon Dioxide 31 mmol/L (22-30); Chloride 100 mmol/L (98-107); Estimated Glomerular Filt Rate > 60; Glucose 84 mg/dL (65-110); Potassium 3.5 mmol/L (3.4-5.0); Sodium 140 mmol/L (137-145)
[2025-03-16 16:38] LABS: Hemoglobin A1C 5.4 % (<5.7)
[2025-03-16 17:27] LABS: MRSA (PCR) NOT DETECTED (NOT DETECTE)
== END 2025-03-16 12:50 | disposition home or self-care (01) ==
LOC: ANHSURGERY 12:56
PROVIDERS: Anesthesiology; PCP Family Medicine; Visit Provider Orthopaedic Surgery
DX: R94.31 Abnormal electrocardiogram [ECG] [EKG] (principal); Z01.818 Encounter for other preprocedural examination; M17.11 Unilateral primary osteoarthritis, right knee
CPT/HCPCS: 36415; 80048; 80307; 82040; 83036; 85025; 87641; 93005

== ENCOUNTER 2025-04-10 08:57 | Inpatient (IN) | payer MEDICARE, SELFPAY ==
[2025-03-16 14:02] VITALS: BMI 36.6
--- NOTE | 2025-03-16 14:52 | PC.NURSE ---
Report to the Outpatient Waiting Room, entrance under the green pavilion located off [facility], at time __12:30pm on date _04/09/25 . Planned Procedure Time: _2:30 pm .? Time changes happen often and if your time is changed the preop area will call you the afternoon before. - You and your visitor will be asked to self-screen and do not enter if you have any COVID symptoms. Please call surgeon if you need to reschedule. - A mask is optional within the hospital at this time. Patients may have clear liquids (water, carbonated beverages, clear teas, apple juice) until 3 hours prior to surgery ( 11:30 am) with a maximum of 20 ounces. - No food from midnight until time of surgery and no smoking, or chewing tobacco (or any form of nicotine). No chewing gum, candy or mints. - Take only the following medications with a SIP of water on the morning of surgery: methimazole DO NOT STOP ANY OF YOUR OTHER PRESCRIPTION MEDICATIONS PRIOR TO SURGERY EXCEPT THE FOLLOWING Hold all vitamins and supplements for 3 days per anesthesiologist.last dose 04/05/25 Medications to discontinue per physician ____HOLD ASPIRIN 7 DAYS PRE OP PER DR MARS Date to take last dose 04/01/25 MAY TAKE TYLENOL IF NEEDED FOR PAIN Please no make-up, nail macanese, hairspray, perfume, deodorant, or body powder the day of surgery.? No jewelry (including any body piercings) or valuables the day of surgery, leave them at home.? Please take a shower or bath the night before, or the morning of, surgery with an antibacterial soap.? Wear comfortable, loose fitting clothing.? Children are encouraged to wear pajamas. - Jewelry must be removed prior to entering the operating room.? Rings and piercings that are not removed may be cut off. - The hospital will not accept responsibility for valuables.? - Please leave all valuables, including medications, at home the day of surgery. If you are going home after surgery, a licensed assembly line driver must drive you home.? - NO public transportation without another adult if you receive anesthesia. - We recommend that an adult stay with you for 24 hours following discharge. - We also recommend that you do not drive, make important decision, drink alcoholic beverages, or take any drugs that were not prescribed by your health care provider for at least 24 hours after your discharge time. For Pediatric surgeries, we recommend two adults accompany the child home. Follow any additional instructions given to you from your surgeon. VERBAL AND WRITTEN instructions given to PATIENT AND DAUGHTER and asked if any additional questions and then verbalized understanding. Patient advised to call surgeon office or pre surgery nurse liaison [phone] if any additional questions.
[2025-03-16 15:11] VITALS: BP 178/84; PULSE 84; RESP 18; TEMP 37; O2SAT 96
[2025-04-09] VITALS (19 sets, daily range): BP systolic 100–154; BP diastolic 52–88; PULSE 70–111; RESP 10–20; TEMP 36–37.2; O2SAT 91–100
--- OUTSIDE RECORDS SUMMARY | 2025-04-09 01:37 | XMS_ITS | CONTINUITY OF CARE DOCUMENT ---
Author Name julio kim Address Unknown Organization [facility] Address [address] [place] [address] [address] [place] [address] Phone [phone] Care Team Providers Care Mass Spectrometry Manager Name Role Phone Adrian TAVERA, Randa Unavailable MINNIE TAVERA, JOB Unavailable [phone] JENNIFER TAVERA, ELIJAH Unavailable [phone] INSURANCE PROVIDERS Payer name Policy type / Coverage type [place] red alliance party ID [place] [employer] [id number] [place] MEDIC[place] Medicare [id number]
--- OUTSIDE RECORDS SUMMARY | 2025-04-09 01:37 | XMS_ITS | Continuity of Care Document ---
Author Organization [facility] Address [address] [place] [address] [place] [address] Phone Care Team Providers Care Clothing Patternmaker Name Role Phone Brien Sutton Unavailable Unavailable [...] Diagnoses Date Provider Providers Copied on Encounter [facility], [address] [place] [address] [address], [place], [place], [id number], tel:[phone] [facility] No Information Lesley Tesfaye. [address] [place], [address], [place]. tel:[phone] Referring Provider: Brien Cooper, [address] [place], [address]. tel:[phone] [facility], [address] [place] [address] [address], [place], [place], [id number], [place] tel:[phone] [facility] No Information Lesley Tesfaye. [address] [place], [address], [place]. tel:[phone] Referring Provider: Brien Cooper, [address] [place], [place], [facility]. tel:[phone] Office/outpat ient Visit, Est [facility], [address], [place], [place], [id number], tel:[phone] [facility] No Information Lesley Brien. [address] [place], [address], . tel:[phone] [facility], [address], [place], [place], [id number], [place] tel:[phone] [facility] No Information Lesley Tesfaye. [address] [place], [address], [place]. [phone] Family History Family Member Type Diagnosis Age At Onset No Information Payers Payer name Insurance type Covered libertarian ID Jeff ortez(s) [place] [id number] [facility] [id number] Social History Type Description Quantity Date Captured [...]
--- NOTE | 2025-04-09 12:02 | WPDHPUPDATE1 ---
History and Physical Update Update Date/Time: 04/09/25 12:02 History and Physical has been reviewed, including an updated exam of the patient. There are NO changes in the patient's condition. Risks, benefits, and alternatives have been discussed and questions answered. Patient agrees to proceed with procedure.
[2025-04-09] MEDS: ACETAMINOPHEN 500 MG TABLET 1000 MG PO (13:31)
[2025-04-09] MEDS: TRANEXAMIC ACID 1,000MG/ISO100 1,000 MG/100 ML BAG 200 MG IVPB (13:42)
--- NOTE | 2025-04-09 13:43 | P.PNAN_ITS ---
Anes - Initial Pre Proc Eval Procedure: Operation Date: 04/09/25 14:30 Proposed Procedures p Right Custom Total Knee Arthroplasty - Popeye Grajeda MD Date/Time: 04/09/25 13:43 Surgeon: Popeye Grajeda MD Pre Op Diagnosis: Prim OA Rt Knee Patient Data Age: 84 Gender: F Height: 1.52 m Weight: 82.4 kg Last Vital Signs Temp 37.2 C 04/09/25 13:34 Pulse 78 04/09/25 13:34 Resp 16 04/09/25 13:34 BP 154/88 H 04/09/25 13:34 Pulse Ox 98 04/09/25 13:34 O2 Del Method Room Air 04/09/25 13:34 Allergies Allergy/AdvReac Type Severity Reaction Status Date / Time No Known Allergies Allergy NONE Verified 04/09/25 13:31 Home Medications ?Medication ?Instructions ?Recorded ?Confirmed ?Type aspirin 81 mg tablet,delayed 81 mg PO HS 12/28/22 04/09/25 History release calcium carbonate 200 mg calcium 1 tablet PO DAILY 01/05/24 04/09/25 History (500 mg)-vitamin D3 400 unit tablet mupirocin 2 % topical ointment 1 applic topical BID #15 grams 01/05/24 03/16/25 Rx methimazole 5 mg tablet 5 mg PO DAILY #90 tabs 06/19/24 04/09/25 Rx furosemide 20 mg tablet (Lasix) 20 mg PO QAM #90 tabs 07/17/24 04/09/25 Rx ketoconazole 2 % topical cream See Rx Instructions .Route 07/21/24 03/16/25 Rx .COMPLEX #15 grams atorvastatin 20 mg tablet See Rx Instructions .Route 08/14/24 04/09/25 Rx .COMPLEX #90 tabs omega 1-exk-ydl-fish oil 900 1 cap PO HS 12/13/24 03/16/25 History mg-1,400 mg capsule,delayed release (Fish Oil) acetaminophen 500 mg tablet 500 mg PO Q6H PRN pain 03/16/25 04/09/25 History (Acetaminophen Extra Strength) cholecalciferol (vitamin D3) 25 25 mcg PO DAILY 03/16/25 04/09/25 History mcg (1,000 unit) capsule fesoterodine 8 mg tablet,extended 8 mg PO HS 03/16/25 03/16/25 History release 24 hr (Toviaz) Patient hx anesthesia problems: none Family hx anesthesia problems: none Results Review: All pre-operative results and documents have been reviewed as part of the pre- operative evaluation. [facility] Past Medical History Medical History Bilateral primary osteoarthritis of knee Graves disease Neuropathy Osteopenia Arthritis of left knee Arthritis of right knee Family history of colon cancer in father B12 deficiency Low vitamin D level Thyroid nodule Anemia Distal radius fracture, right Traumatic injury of foot Obstructive sleep apnea Hyperthyroidism Overactive bladder SI (sacroiliac) joint dysfunction Carpal tunnel syndrome Prediabetes Orthostatic hypotension Dyslipidemia Right foot drop Shingles Anxiety Arthritis Left foot drop Melena Rectal polyp HTN (hypertension) HLD (hyperlipidemia) Epistaxis Actinic keratosis Surgical History Surgical History H/O colonoscopy History of back surgery History of left knee replacement H/O arthroscopy of right knee H/O section Family History Family History Mother Cerebrovascular accident Family history of heart disease in male family member before age 55 Diabetes mellitus Heart disease Hypertension Acute myocardial infarction Father Family history of malignant neoplasm of urinary bladder Sibling Hypertension Heart disease Cerebrovascular accident Carcinoma of colon Hyperlipidemia Other Alcoholism Social History Social History Smoking status: Never smoker Second hand tobacco smoke exposure: Yes Additional smoking assessment comments: DENIES ANY FORM OF TOBACCO USE Alcohol intake: never Substance use: never Substance use type: does not use Do You Feel Safe in your Home?: Yes Lack of Transportation: No Lack of Food: Often True Current Housing: I Have Housing Concerned About Future Housing: No Difficulty Paying Gas/Electric Bills: No Difficulty Paying for Meds: Decline to Answer Currently Unemployed: No Education: High School Diploma/GED Difficulty w/ Childcare or Family Care: No Living arrangements: with family Occupation/Education: retired 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 Gender identity (if verbalized by the patient): Female Sexual Orientation (if Verbalized by the Patient): Straight or Heterosexual Spiritual care concerns: No Anes - Eval Final PreProcedure Day of Procedure 04/09/25 13:43 Patient weight: obese Heart: regular rate and rhythm and murmur Lungs: clear to auscultation Airway: Mallampati scale class II Neurological: alert and oriented Last oral intake: >/= 8 hours ASA classification: III Emergent: no Anesthetic plan: proceed Anesthesia type and monitoring: general LMA and standard monitoring Results Review: All pre-operative results and documents have been reviewed as part of the pre- operative evaluation. Informed Consent: The patient's anesthetic plan and its attendant risks and benefits were discussed with the patient/family/POA. Questions were solicited and answers provided to the satisfaction of the patient/family/POA.
[2025-04-09] MEDS: ceFAZolin 2 GM/D5W 50 ML 2 GM/50 ML BAG IVPB ×2 (14:08→20:38)
[2025-04-09] MEDS: SODIUM CHLORIDE 0.9% IV 37.7 ML, MORPHINE SULFATE INJ (*CRX) 2 MG, ROPivacaine HCL 1% 2... INFILTRATE (14:37)
[2025-04-09] MEDS: TRANEXAMIC ACID 1,000 MG/10 ML AMPUL 1000 MG IV PUSH (15:23)
[2025-04-09] MEDS: LACTATED RINGERS 1,000 ML 30 ML IV CONT ×2 (15:43)
--- NOTE | 2025-04-09 15:52 | W.PM.PROC2 ---
Procedure Note - Detailed Date of Procedure 04/09/25 Pre-op Diagnosis Right knee degenerative arthritis. Post-op Diagnosis Same Procedure Performed Total knee arthroplasty, custom right. Surgeon Popeye Grajeda MD Anesthesia General Description of Procedure Preoperative antibiotics were given. The limb was prepped and draped in the usual sterile fashion with a well-padded tourniquet high on the thigh. The limb was exsanguinated and the tourniquet inflated to 300 mmHg. A longitudinal incision was created just medial to the patella. A trivector approach to the knee was performed. Arthrotomy was taken down through the joint capsule. No significant releases were initially taken. The femur was exposed and the F1 jig was applied. The coring tool was used to remove the cartilage for the F2 jig to sit flush with the bone. The jig was pinned and the distal cut carefully taken. Caliper measurements confirmed appropriate bony resections according to the preoperative templated plan. The F4 cutting jig for the femur was applied, at the standard rotation. The AP and anterior chamfer cuts were taken. The F5 jig was applied and the posterior chamfer cuts were taken. The tibia was prepared using the T1 jig, after removing cartilage for the jig contact points. Proper alignment was checked with the alignment sammi. The tibia was cut using the T1u guide. Gap balancing was performed. Gap measurements were taken and the knee was trialed. Excellent alignment and soft tissue balancing was confirmed. The posterior cruciate ligament was recessed along the proximal tibia. Lateral patellar facetectomy was performed. Meniscal remnants were removed. The trial components were assembled. Excellent range of motion and proper soft tissue balancing were confirmed throughout the full range of motion. Patellar tracking was excellent. The knee was copiously irrigated periodically throughout the procedure. The real implants were cemented into position. Excess cement was carefully removed. The wound was closed in layers with interrupted #1 Vicryl suture, 2-0 strata fix suture, 0 strata fix suture, 2-0 strata fix suture. Steri-Strips placed on the skin with the knee flexed. Sterile bulky dressing applied. The patient was brought to the recovery room in stable condition. There were no complications. Implants Conformis Custom total knee arthroplasty. Cemented. Cruciate retaining. 6C insert. Estimated Blood Loss 100 Drains No Complications No immediate complications Condition Stable Disposition PACU [facility] Billing Surgery - Charge Forward: Surgery Billing
--- NOTE | 2025-04-09 15:52 | SUR.PHASEI ---
XRAY OF RIGHT KNEE IN PROGRESS AT BEDSIDE. DR. BUSTOS ORDERED EKG.
--- NOTE | 2025-04-09 16:06 | ECG_ITS ---
Test Date: 2025-04-09 16:20:25 Measurements Intervals [place] Rate: 107 P: 0 NV: 0 QRS: 52 QRSD: 132 T: 1 QT: 371 QTc: 496 Interpretive Statements ATRIAL FIBRILLATION WITH RAPID VENTRICULAR RESPONSE RIGHT BUNDLE BRANCH BLOCK BASELINE ARTIFACT- II, III, V1-V3 ABNORMAL ECG Compared to ECG 03/16/2025 15:22:37 Sinus rhythm no longer present Electronically Signed On 04-09-2025 16:22:07 CDT by Hunter Ulloa D.O.
--- NOTE | 2025-04-09 16:07 | SUR.PHASEI ---
CARDIOLOGY CALLED FOR STAT EKG; CALLED BACK NOW.
--- NOTE | 2025-04-09 16:14 | SUR.PHASEI ---
EKG IN PROGRESS AT BEDSIDE.
--- NOTE | 2025-04-09 16:29 | SUR.PHASEI ---
DR. MARS CALLED IN OR ROOM 5 TO NOTIFY HIM THAT PATIENT IS IN A.FIB WITH RVE AND WILL NEED TELEMETRY; WILL NOTIFY MATERIAL ENGINEER TOO.
[2025-04-09] MEDS: fentaNYL CITRATE INJ (*CRX) 100 MCG/2 ML VIAL 25 MCG IV PUSH (16:35)
[2025-04-09] MEDS: METOPROLOL TARTRATE INJ 5 MG/5 ML VIAL IV PUSH (16:38)
--- NOTE | 2025-04-09 17:23 | ADMGEN ---
This patient, Mayra Clayton, was admitted to [facility] Surg Room 314-02. Patient/family oriented to hospital policies and general routines including ID bracelet, bed and alarms, visiting hours, pain management, procedures, bathroom and other care routines, personal items, smoking policy, room service/diet, and visiting hours. Information on how to activate the Rapid Response Team has been discussed. Patient/Family are encouraged to report perceived risks to care and to ask questions if they do not understand what they are told or what they should do.
[2025-04-09] MEDS: ACETAMINOPHEN 325 MG TABLET 650 MG PO (17:51)
[2025-04-09] MEDS: SENNA/DOCUSATE SODIUM TABLET 2 TAB PO (17:51)
--- NOTE | 2025-04-09 19:18 | PM.CNCAR ---
Assessment and Plan Assessment and plan (1) PAF (paroxysmal atrial fibrillation): Code(s): I48.0 - Paroxysmal atrial fibrillation Status: Acute Assessment and Plan: In sinus rhythm. [id number] 3. On aspirin. Start Sotalol 80 mg BID as per protocol checking INR after each does for 5 doses. Start Eliquis 5 mg BID start in AM if OK wit surgery. (2) Diastolic dysfunction: Code(s): I51.89 - Other ill-defined heart diseases Status: Acute Assessment and Plan: Euvolemic. (3) Aortic stenosis: Code(s): I35.0 - Nonrheumatic aortic (valve) stenosis Status: Acute Assessment and Plan: Mild-mod. Stabel. (4) Mixed hyperlipidemia: Code(s): E78.2 - Mixed hyperlipidemia Status: Acute Assessment and Plan: On Atorvastatin. History of Present Illness History of Present Illness Consult date/time: 04/09/25 19:18 Reason For Visit: Prim OA Rt Knee Narrative: 84 yr old woman who is my regular cardiology patient and a patient of Dr. Alaniz presents for elective right knee replacement surgery and found post op to be in atrial fibrillation.She has a history of diastolic dysfunction, aortic valve stenosis dyslipidemia, prior DM and now PAF. Daughter is at bedside. She had right knee surgery and noted to have atrial fibrillation post op. Currently she is back in sinus rhythm. She showed me her iphone that showed atrial fibrillation off and on since Sep 2024 but may or may not be accurate. Prior to today she is limited at walking short distances due to drop foot of left leg which she wears a brace. She has mild edema of legs that get worse at end of the day. Denies orthopnea, PND, dizziness, palpitations. Cardiovascular Procedures Electrophysiology:: 06/23/23 EKG: Sinus rhythm, RBBB. 10/12/19 EKG: Sinus rhythm, RBBB. Stress Tests:: 08/25/23 Lexiscan myoview: Negative. Review of Systems Review of Systems: All systems reviewed & are unremarkable except as noted in HPI and below Constitutional: Constitutional: Reports as per HPI, Denies chills and Denies fever(s) Cardiovascular: Cardiovascular: Reports as per HPI, Denies chest pain and Denies irregular heart rhythm Respiratory: Respiratory: Reports as per HPI and Denies dyspnea Gastrointestinal: Gastrointestinal: Reports as per HPI and Denies abdominal pain Genitourinary: Genitourinary: Reports as per HPI and Denies dysuria Musculoskeletal: Musculoskeletal: Reports as per HPI and Reports arthralgias Neurologic: Reports as per HPI, Denies dizziness and Denies syncope [facility] Past Medical History Medical History Bilateral primary osteoarthritis of knee Graves disease Neuropathy Osteopenia Arthritis of left knee Arthritis of right knee Family history of colon cancer in father B12 deficiency Low vitamin D level Thyroid nodule Anemia Distal radius fracture, right Traumatic injury of foot Obstructive sleep apnea Hyperthyroidism Overactive bladder SI (sacroiliac) joint dysfunction Carpal tunnel syndrome Prediabetes Orthostatic hypotension Dyslipidemia Right foot drop Shingles Anxiety Arthritis Left foot drop Melena Rectal polyp HTN (hypertension) HLD (hyperlipidemia) Epistaxis Actinic keratosis Surgical History Surgical History H/O colonoscopy History of back surgery History of left knee replacement H/O arthroscopy of right knee H/O section Family History Family History Mother Cerebrovascular accident Family history of heart disease in male family member before age 55 Diabetes mellitus Heart disease Hypertension Acute myocardial infarction Father Family history of malignant neoplasm of urinary bladder Sibling Hypertension Heart disease Cerebrovascular accident Carcinoma of colon Hyperlipidemia Other Alcoholism Social History Social History Smoking status: Never smoker Second hand tobacco smoke exposure: Yes Additional smoking assessment comments: DENIES ANY FORM OF TOBACCO USE Alcohol intake: never Substance use: never Substance use type: does not use Do You Feel Safe in your Home?: Yes Lack of Transportation: No Lack of Food: Often True Current Housing: I Have Housing Concerned About Future Housing: No Difficulty Paying Gas/Electric Bills: No Difficulty Paying for Meds: No Currently Unemployed: No Education: High School Diploma/GED Difficulty w/ Childcare or Family Care: No Living arrangements: with family Occupation/Education: retired 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 Gender identity (if verbalized by the patient): Female Sexual Orientation (if Verbalized by the Patient): Straight or Heterosexual Spiritual care concerns: No Meds Home Medications and Allergies Home Medications ?Medication ?Instructions ?Recorded ?Confirmed ?Type aspirin 81 mg tablet,delayed 81 mg PO HS 12/28/22 04/09/25 History release calcium carbonate 200 mg calcium 1 tablet PO DAILY 01/05/24 04/09/25 History (500 mg)-vitamin D3 400 unit tablet mupirocin 2 % topical ointment 1 applic topical BID #15 grams 01/05/24 03/16/25 Rx methimazole 5 mg tablet 5 mg PO DAILY #90 tabs 06/19/24 04/09/25 Rx furosemide 20 mg tablet (Lasix) 20 mg PO QAM #90 tabs 07/17/24 04/09/25 Rx ketoconazole 2 % topical cream See Rx Instructions .Route 07/21/24 03/16/25 Rx .COMPLEX #15 grams atorvastatin 20 mg tablet See Rx Instructions .Route 08/14/24 04/09/25 Rx .COMPLEX #90 tabs omega 6-zxg-yjc-fish oil 900 1 cap PO HS 12/13/24 03/16/25 History mg-1,400 mg capsule,delayed release (Fish Oil) acetaminophen 500 mg tablet 500 mg PO Q6H PRN pain 03/16/25 04/09/25 History (Acetaminophen Extra Strength) cholecalciferol (vitamin D3) 25 25 mcg PO DAILY 03/16/25 04/09/25 History mcg (1,000 unit) capsule fesoterodine 8 mg tablet,extended 8 mg PO HS 03/16/25 03/16/25 History release 24 hr (Toviaz) aspirin 81 mg tablet,delayed 81 mg PO BID 14 days #28 tabs 04/09/25 Rx release oxycodone-acetaminophen 5 mg-325 1 - 2 tablet PO Q4-6H PRN pain 7 04/09/25 Rx mg tablet days #30 tabs Allergies Allergy/AdvReac Type Severity Reaction Status Date / Time No Known Allergies Allergy NONE Verified 04/09/25 13:31 Vital Signs Vital Signs - 24 hr 04/09/25 13:34 04/09/25 15:43 04/09/25 15:55 Temperature 98.9 F 97 F L Pulse Rate 78 86 103 H Respiratory Rate 16 17 15 Blood Pressure 154/88 H 115/52 L 116/80 Pulse Oximetry 98 95 97 Oxygen Delivery Room Air Simple Face Mask Simple Face Mask Oxygen Flow Rate 8 8 04/09/25 16:10 04/09/25 16:25 04/09/25 16:38 Temperature Pulse Rate 86 102 H 88 Respiratory Rate 18 18 Blood Pressure 122/78 120/85 Pulse Oximetry 97 91 Oxygen Delivery Room Air Room Air Oxygen Flow Rate 04/09/25 16:40 04/09/25 16:55 04/09/25 17:25 Temperature 96.8 F L Pulse Rate 96 111 H 83 Respiratory Rate 10 L 12 18 Blood Pressure 120/77 112/84 114/83 Pulse Oximetry 93 95 100 Oxygen Delivery Nasal Cannula Nasal Cannula Oxygen Flow Rate 2 2 04/09/25 17:40 04/09/25 18:10 04/09/25 19:07 Temperature 97.4 F L 96.9 F L 97.8 F Pulse Rate 81 77 86 Respiratory Rate 18 17 18 Blood Pressure 116/75 131/76 112/71 Pulse Oximetry 95 98 97 Oxygen Delivery Oxygen Flow Rate Exam Const: General: cooperative, healthy appearing and comfortable Resp: Auscultation: clear to auscultation bilaterally, no crackles, no rales, no rhonchi and no wheezes Cardio: Rate: regular rate Rhythm: regular rhythm Heart sounds: Murmur heart sound present (III/ systolic murmur RICS) Peripheral pulses: dorsalis pedis present GI: GI Palp: No abdominal tenderness and Yes Soft to palpation Neuro: General: oriented to person, oriented to place and oriented to time Extrem: Right lower extremity: no edema Left lower extremity: no edema Results Labs and Meds Lab results: Intake and Output 04/09/25 04/09/25 04/09/25 07:59 15:59 23:59 Intake Total 1050 700 Balance 1050 700 Intake: IV 1050 500 Lactated Ringers 1,000 ml @ 30 1000 500 mls/hr IV CONT .Q24H ANGEL Rx#: [id number] ceFAZolin 2 GM/D5W 50 ML 2 gm 50 In 50 ml @ 100 mls/hr IVPB ONCE ONE Rx#:[id number] Oral 200 Other: Est. Blood Loss Amount 100 Patient Weight 04/09/25 23:59 Weight 82.4 kg
[2025-04-09 19:32] LABS: Anion Gap 8 mmol/L (4-12); Blood Urea Nitrogen 16 mg/dL (7-17); Calcium 8.7 mg/dL (8.4-10.2); Carbon Dioxide 26 mmol/L (22-30); Chloride 104 mmol/L (98-107); Estimated CRCL calculation 46 ml/min; Estimated Glomerular Filt Rate > 60; Glucose 171 mg/dL (65-110); Magnesium 2.1 mg/dL (1.6-2.3); Potassium 3.9 mmol/L (3.4-5.0); Sodium 138 mmol/L (137-145)
[2025-04-09] MEDS: FAMOTIDINE 20 MG TABLET PO (20:25)
[2025-04-09] MEDS: ASPIRIN 81 MG ENTERIC TABLET PO (20:25)
[2025-04-09 21:27] LABS: Add Urine Microscopic? YES; Appearance Urine Clear (Clear); Bacteria Urine 4+ /hpf; Bilirubin Urine Negative (Negative); Blood Urine Negative (Negative); Color Urine Yellow (Yellow); Glucose Urine UA Negative (Negative); Ketones Urine Trace mg/dL (Negative); Leukocyte Esterase Ur 3+ LEU/UL (Negative); Nitrate Urine Positive (Negative); Non Pathogenic Casts 0-2; Protein Urine Negative (Negative); RBC Urine 0-2 /hpf (0-2); Specific Grav Ur 1.012 (1.001-1.035); Squamous Epithelial Cell Urine None Seen /hpf (Few); Urobilinogen Urine 0.2 mg/dL (<2.0); WBC Urine 51-100 /hpf (0-3)
[2025-04-09] MEDS: SOTALOL HCL 80 MG TABLET PO (22:05)
[2025-04-10] VITALS (14 sets, daily range): BP systolic 92–104; BP diastolic 47–69; PULSE 48–73; RESP 12–20; TEMP 36.5–36.7; O2SAT 90–98
--- NOTE | ~2025-04-10 | XR_ITS ---
[id number] Ordering provider: Popeye Grajeda MD History: . POST OP RIGHT TKA . Comparison: None. FINDINGS: BONES: No acute fracture or dislocation. JOINT SPACES: Total knee arthroplasty. SOFT TISSUES: Postoperative changes in the subcutaneous tissues. IMPRESSION: No acute osseous abnormality right knee. Total knee arthroplasty. Reviewed, dictated and finalized at location A.
--- NOTE | 2025-04-10 00:05 | ECG_ITS ---
Test Date: 2025-04-10 00:11:18 Measurements Intervals [place] Rate: 67 P: 50 WI: 170 QRS: 44 QRSD: 132 T: 50 QT: 459 QTc: 487 Interpretive Statements SINUS RHYTHM RIGHT BUNDLE BRANCH BLOCK ABNORMAL ECG Compared to ECG 04/09/2025 16:20:25 Atrial fibrillation no longer present Electronically Signed On 04-10-2025 06:26:54 CDT by Hunter Ulloa D.O.
[2025-04-10] MEDS: ACETAMINOPHEN 325 MG TABLET 650 MG PO ×4 (00:09→17:03)
--- NOTE | 2025-04-10 00:22 | PC.NURSE ---
PATIENT LEFT 3 MEDSURG DUE TO BEING PUT ON SOTALOL LOADING DOSE REPORT GIVEN TO KIMO ON IMU
[2025-04-10 04:31] LABS: Basophils Percent Auto 0.2 % (0.2-1.2); Hematocrit 38.6 % (37.0-47.0); Hemoglobin 12.3 g/dL (12.0-15.0); Immature Granulocyte Absolute 0.06 K/mm3 (0.00-0.031); Immature Granulocyte Percent A 0.5 % (0-0.5); Lymphocytes Percent Auto 8.1 % (18.3-44.2); Mean Corpuscular HGB Conc 31.9 g/dl (32-36); Mean Corpuscular Hemoglobin 29.3 pg (26-34); Mean Corpuscular Volume 91.9 fl (80-100); Mean Platelet Volume 10.8 fl (7.4-10.4); Monocytes Absolute Auto 0.7 K/mm3 (0.1-0.6); Monocytes Percent Auto 5.7 % (2.6-8.5); Neutrophils Absolute Auto 10.5 K/mm3 (1.3-6.7); Neutrophils Percent Auto 85.5 % (45.5-73.1); Platelet Count Result 224 k/mm3 (150-375); White Blood Count 12.3 K/mm3 (4.5-10.0)
[2025-04-10 04:57] LABS: Anion Gap 4 mmol/L (4-12); Blood Urea Nitrogen 18 mg/dL (7-17); Calcium 8.7 mg/dL (8.4-10.2); Carbon Dioxide 29 mmol/L (22-30); Chloride 103 mmol/L (98-107); Estimated CRCL calculation 40 ml/min; Estimated Glomerular Filt Rate > 60; Glucose 126 mg/dL (65-110); Magnesium 2.2 mg/dL (1.6-2.3); Potassium 4.2 mmol/L (3.4-5.0); Sodium 136 mmol/L (137-145)
[2025-04-10] MEDS: ceFAZolin 2 GM/D5W 50 ML 2 GM/50 ML BAG IVPB ×2 (05:44→13:59)
--- NOTE | 2025-04-10 07:57 | PM.PNCARD ---
Progress Note: A&P Assessment and Plan (1) PAF (paroxysmal atrial fibrillation): Code(s): I48.0 - Paroxysmal atrial fibrillation Status: Acute Assessment and Plan: In sinus rhythm. [id number] 3. On aspirin. Start 04/09/25 evening Sotalol 80 mg BID as per protocol checking INR after each does for 5 doses. Start Eliquis 5 mg BID start in AM if OK wit surgery. And then stop aspirin. (2) Diastolic dysfunction: Code(s): I51.89 - Other ill-defined heart diseases Status: Acute Assessment and Plan: Euvolemic. (3) Aortic stenosis: Code(s): I35.0 - Nonrheumatic aortic (valve) stenosis Status: Acute Assessment and Plan: Mild-mod. Stabel. (4) Mixed hyperlipidemia: Code(s): E78.2 - Mixed hyperlipidemia Status: Acute Assessment and Plan: On Atorvastatin. Subjective Date/time seen: 04/10/25 07:57 Interval history: No chest pain or sob. Exam Const: General: cooperative, healthy appearing and comfortable Orientation/consciousness: oriented to person, oriented to place and oriented to time Resp: Auscultation: clear to auscultation bilaterally, no crackles, no rales, no rhonchi and no wheezes Cardio: Rate: regular rate Rhythm: regular rhythm Heart sounds: Murmur heart sound present (III/ systolic murmur RICS) Peripheral pulses: dorsalis pedis present Neuro: General: oriented to person, oriented to place and oriented to time Extrem: Right lower extremity: no edema Left lower extremity: no edema Objective Data Vital Signs Vital Signs: Vital Signs - 24 hr 04/09/25 13:34 04/09/25 15:43 04/09/25 15:55 Temperature 98.9 F 97 F L Pulse Rate 78 86 103 H Respiratory Rate 16 17 15 Blood Pressure 154/88 H 115/52 L 116/80 Pulse Oximetry 98 95 97 Oxygen Delivery Room Air Simple Face Mask Simple Face Mask Oxygen Flow Rate 8 8 Fraction of Inspired Oxygen 04/09/25 16:10 04/09/25 16:25 04/09/25 16:38 Temperature Pulse Rate 86 102 H 88 Respiratory Rate 18 18 Blood Pressure 122/78 120/85 Pulse Oximetry 97 91 Oxygen Delivery Room Air Room Air Oxygen Flow Rate Fraction of Inspired Oxygen 04/09/25 16:40 04/09/25 16:55 04/09/25 17:25 Temperature 96.8 F L Pulse Rate 96 111 H 83 Respiratory Rate 10 L 12 18 Blood Pressure 120/77 112/84 114/83 Pulse Oximetry 93 95 100 Oxygen Delivery Nasal Cannula Nasal Cannula Oxygen Flow Rate 2 2 Fraction of Inspired Oxygen 04/09/25 17:40 04/09/25 18:10 04/09/25 19:07 Temperature 97.4 F L 96.9 F L 97.8 F Pulse Rate 81 77 86 Respiratory Rate 18 17 18 Blood Pressure 116/75 131/76 112/71 Pulse Oximetry 95 98 97 Oxygen Delivery Oxygen Flow Rate Fraction of Inspired Oxygen 04/09/25 19:51 04/09/25 21:04 04/09/25 21:11 Temperature 97.1 F L Pulse Rate 81 85 Respiratory Rate 20 18 Blood Pressure 100/61 Pulse Oximetry 97 95 95 Oxygen Delivery Room Air Nasal Cannula Oxygen Flow Rate 2 Fraction of Inspired Oxygen 21 04/09/25 21:40 04/09/25 22:05 04/09/25 22:23 Temperature 98.0 F Pulse Rate 84 70 Respiratory Rate 18 Blood Pressure 145/76 H Pulse Oximetry 95 95 Oxygen Delivery Nasal Cannula Oxygen Flow Rate 2 Fraction of Inspired Oxygen 04/09/25 22:33 04/10/25 00:00 04/10/25 00:00 Temperature 97.7 F Pulse Rate 71 73 Respiratory Rate 18 Blood Pressure 102/67 Pulse Oximetry 97 97 Oxygen Delivery Nasal Cannula Oxygen Flow Rate 2 Fraction of Inspired Oxygen 04/10/25 00:00 04/10/25 03:14 04/10/25 04:00 Temperature Pulse Rate 68 64 Respiratory Rate Blood Pressure Pulse Oximetry 97 Oxygen Delivery Nasal Cannula Oxygen Flow Rate 2 Fraction of Inspired Oxygen 04/10/25 04:00 Temperature 98.1 F Pulse Rate 66 Respiratory Rate 16 Blood Pressure 92/47 L Pulse Oximetry 95 Oxygen Delivery Oxygen Flow Rate Fraction of Inspired Oxygen Intake/Output Intake/Output: Intake & Output 04/07/25 04/08/25 04/09/25 04/10/25 23:59 23:59 23:59 23:59 Intake Total 1800 Balance 1800 Meds/Results Medications: Active Medications Generic Name Dose Route Start Last Admin Trade Name Freq PRN Reason Stop Dose Admin Acetaminophen 650 mg 04/09/25 18:00 04/10/25 05:44 Acetaminophen 325 Mg Tablet PO 650 mg Q6HR ANGEL Administration Aspirin 81 mg 04/09/25 21:00 04/09/25 20:25 Aspirin 81 Mg Enteric Tablet PO 81 mg Q12HR ANGEL Administration Atorvastatin Calcium 20 mg 04/10/25 09:00 Atorvastatin 20 Mg Tablet BY MOUTH DAILY ANGEL Cyclobenzaprine HCl 10 mg 04/09/25 17:03 Cyclobenzaprine Hcl 10 Mg Tablet PO Q8H PRN Spasms Diphenhydramine HCl 25 mg 04/09/25 17:03 Diphenhydramine Hcl Inj 50 Mg/Ml Vial IV PUSH Q6H PRN Itching Famotidine 20 mg 04/09/25 21:00 04/09/25 20:25 Famotidine 20 Mg Tablet PO 20 mg Q12HR ANGEL Administration Furosemide 20 mg 04/10/25 09:00 Furosemide 20 Mg Tablet PO QAM ANGEL Hydromorphone HCl 1 mg 04/09/25 17:10 Hydromorphone Hcl Inj (*Crx) 2 Mg/Ml Vial IV PUSH Q2H PRN Breakthrough Pain Rated 7-10 or NPO Hydromorphone HCl 0.5 mg 04/09/25 17:09 Hydromorphone Hcl Inj (*Crx) 2 Mg/Ml Vial IV PUSH Q2H PRN Breakthrough Pain Rated 4-6 or NPO Cefazolin Sodium 2 gm in 50 mls @ 100 mls/hr 04/09/25 22:00 04/10/25 05:44 Ancef 2 Gm/D5w 50 Ml IVPB 04/10/25 14:29 100 mls/hr Q8H ANGEL Administration Methimazole 5 mg 04/09/25 17:55 04/09/25 18:31 Methimazole 5 Mg Tab PO Not Given DAILY ANGEL Naloxone HCl 0.1 mg 04/09/25 17:03 Naloxone Hcl 0.4 Mg/Ml Vial IV PUSH Q2M PRN Opiate Reversal Ondansetron HCl 4 mg 04/09/25 17:03 Ondansetron Inj 4 Mg/2 Ml Vial IV PUSH Q4H PRN Nausea And Vomiting Oxycodone HCl 2.5 mg 04/09/25 17:03 Oxycodone Hcl (*Crx) 2.5 Mg Tab Ir PO Q4H PRN Pain Rated 4-6 Oxycodone HCl 5 mg 04/09/25 17:03 Oxycodone Hcl (*Crx) 5 Mg Tab Ir PO Q4H PRN Pain Rated 7-10 Polyethylene Glycol 17 gm 04/10/25 09:00 Polyethylene Glycol 3350 17 Gm Powd.Pack PO QAM ANGEL Senna/Docusate Sodium 2 tab 04/09/25 17:03 04/09/25 17:51 Senna/Docusate Sodium Tablet PO 2 tab BID ANGEL Administration Sotalol HCl 80 mg 04/09/25 21:00 04/09/25 22:05 Sotalol Hcl 80 Mg Tablet PO 80 mg Q12HR ANGEL Administration Tramadol HCl 50 mg 04/09/25 17:03 Tramadol Hcl (*Crx) 50 Mg Tablet PO Q4H PRN Pain Rated 1-3 Radiology Results: ITS Impressions Knee X-Ray 04/09/25 16:52 IMPRESSION: No acute osseous abnormality right knee. Total knee arthroplasty. Labs Labs: Laboratory Results - last 24 hr 04/09/25 04/09/25 04/09/25 13:02 19:05 21:15 WBC RBC Hgb Hct MCV MCH MCHC RDW Plt Count MPV Immature Gran % (Auto) Neut % (Auto) Lymph % (Auto) [place] % (Auto) Eos % (Auto) Baso % (Auto) Lymph # (Auto) [place] # (Auto) Eos # (Auto) Baso # (Auto) Abs Immat Gran (auto) Absolute Neuts (auto) Absolute Nucleated RBC Nucleated RBC % Sodium 138 Potassium 3.9 Chloride 104 Carbon Dioxide 26 Anion Gap 8 BUN 16 Creatinine 0.74 Estim Creat Clear Calc 46 Estimated GFR > 60 Glucose 171 H Calcium 8.7 Magnesium 2.1 Urine Color Yellow Urine Appearance Clear Urine pH 7.0 Ur Specific [place] 1.012 Urine Protein Negative Urine Glucose (UA) Negative Urine Ketones Trace H Ur Blood (Man) Negative Urine Nitrate Positive H Urine Bilirubin Negative Urine Urobilinogen 0.2 Leukocyte Esterase Rfl 3+ H Urine RBC 0-2 Urine WBC 51-100 H Ur Squamous Epith Cells None seen Urine Bacteria 4+ H Urine Casts 0-2 Blood Type O Positive Antibody Screen Negative 04/10/25 03:47 WBC 12.3 H RBC 4.20 Hgb 12.3 Hct 38.6 MCV 91.9 MCH 29.3 MCHC 31.9 L RDW 14.0 Plt Count 224 MPV 10.8 H Immature Gran % (Auto) 0.5 Neut % (Auto) 85.5 H Lymph % (Auto) 8.1 L [place] % (Auto) 5.7 Eos % (Auto) 0.0 Baso % (Auto) 0.2 Lymph # (Auto) 1.00 [place] # (Auto) 0.7 H Eos # (Auto) 0.0 Baso # (Auto) 0.0 Abs Immat Gran (auto) 0.06 H Absolute Neuts (auto) 10.5 H Absolute Nucleated RBC 0.000 Nucleated RBC % 0.0 Sodium 136 L Potassium 4.2 Chloride 103 Carbon Dioxide 29 Anion Gap 4 BUN 18 H Creatinine 0.86 Estim Creat Clear Calc 40 Estimated GFR > 60 Glucose 126 H Calcium 8.7 Magnesium 2.2 Urine Color Urine Appearance Urine pH Ur Specific [place] Urine Protein Urine Glucose (UA) Urine Ketones Ur Blood (Man) Urine Nitrate Urine Bilirubin Urine Urobilinogen Leukocyte Esterase Rfl Urine RBC Urine WBC Ur Squamous Epith Cells Urine Bacteria Urine Casts Blood Type Antibody Screen
--- NOTE | 2025-04-10 08:05 | P.CONIM_ITS ---
Assessment and Plan Assessment and plan (1) Status post total right knee replacement: Code(s): Z96.651 - Presence of right artificial knee joint Status: Acute Assessment and Plan: * POD 1 Right total knee arthroplasty. * Ortho primary management team (2) PAF (paroxysmal atrial fibrillation): Code(s): I48.0 - Paroxysmal atrial fibrillation Status: Acute Assessment and Plan: * Episode of Afrib post op * Now in NSR * [id number] 3. On aspirin * Started Sotalol 80 mg BID on 04/09, final dose in pm 04/11 * Check EKG after each dose * Eliquis 5mg BID * Cardiology following HPI Date of Consult Consult date: 04/10/25 Requesting Physician: Popeye Grajeda MD Primary Care Provider: Juan Alaniz MD Consult Narrative Narrative: Mayra Clayton is a 84 year old female with a past medical history of aortic valve stenosis, diastolic dysfunction, and DM who presents to the hospital for elective right knee replacement surgery. While in post-op, patient found to be in atrial fibrillation. Back in sinus rhythm now but Cardiology and Hospitalist has been consulted for management of afib and medication management. POD 1 Total knee arthroplasty, custom right. At the time of my exam, patient is in NSR with no complaints other than some nausea. Cardiology continues to follow regarding management of afib. They started sotalol 80 mg b.i.d. on 04/09 and plan on giving 5 total doses, with a final dose in the p.m. of 04/11. Serial EKGs to follow-up each dose of sotalol. L Pt found to have positive nitrates 3+ leukocyte esterase, 51-100 urine WBC 4+ bacteria on urinalysis. Culture still pending at this time but we will treat UTI Rocephin. She still has 1 dose cefazolin left knee completion, so we will start Rocephin tonight at 9:00 p.m.. Otherwise patient has no complaints or concerns at this time, continue to work with PT/OT. Review of Systems 2 Review of Systems: All systems reviewed & are unremarkable except as noted in HPI and below PMFSH Past Medical History Medical History Bilateral primary osteoarthritis of knee Graves disease Neuropathy Osteopenia Arthritis of left knee Arthritis of right knee Family history of colon cancer in father B12 deficiency Low vitamin D level Thyroid nodule Anemia Distal radius fracture, right Traumatic injury of foot Obstructive sleep apnea Hyperthyroidism Overactive bladder SI (sacroiliac) joint dysfunction Carpal tunnel syndrome Prediabetes Orthostatic hypotension Dyslipidemia Right foot drop Shingles Anxiety Arthritis Left foot drop Melena Rectal polyp HTN (hypertension) HLD (hyperlipidemia) Epistaxis Actinic keratosis Surgical History Surgical History H/O colonoscopy History of back surgery History of left knee replacement H/O arthroscopy of right knee H/O section Family History Family History Mother Cerebrovascular accident Family history of heart disease in male family member before age 55 Diabetes mellitus Heart disease Hypertension Acute myocardial infarction Father Family history of malignant neoplasm of urinary bladder Sibling Hypertension Heart disease Cerebrovascular accident Carcinoma of colon Hyperlipidemia Other Alcoholism Social History Social History Smoking status: Never smoker Second hand tobacco smoke exposure: Yes Additional smoking assessment comments: DENIES ANY FORM OF TOBACCO USE Alcohol intake: never Substance use: never Substance use type: does not use Do You Feel Safe in your Home?: Yes Lack of Transportation: No Lack of Food: Often True Current Housing: I Have Housing Concerned About Future Housing: No Difficulty Paying Gas/Electric Bills: No Difficulty Paying for Meds: No Currently Unemployed: No Education: High School Diploma/GED Difficulty w/ Childcare or Family Care: No Living arrangements: with family Occupation/Education: retired 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 Gender identity (if verbalized by the patient): Female Sexual Orientation (if Verbalized by the Patient): Straight or Heterosexual Spiritual care concerns: No Meds Home Medications and Allergies Home Medications ?Medication ?Instructions ?Recorded ?Confirmed ?Type aspirin 81 mg tablet,delayed 81 mg PO HS 12/28/22 04/09/25 History release calcium carbonate 200 mg calcium 1 tablet PO DAILY 01/05/24 04/09/25 History (500 mg)-vitamin D3 400 unit tablet mupirocin 2 % topical ointment 1 applic topical BID #15 grams 03/06/24 05/16/25 Rx methimazole 5 mg tablet 5 mg PO DAILY #90 tabs 06/19/24 04/09/25 Rx furosemide 20 mg tablet (Lasix) 20 mg PO QAM #90 tabs 07/17/24 04/09/25 Rx ketoconazole 2 % topical cream See Rx Instructions .Route 07/21/24 03/16/25 Rx .COMPLEX #15 grams atorvastatin 20 mg tablet See Rx Instructions .Route 08/14/24 04/09/25 Rx .COMPLEX #90 tabs omega 1-tfg-dmi-fish oil 900 1 cap PO HS 12/13/24 03/16/25 History mg-1,400 mg capsule,delayed release (Fish Oil) acetaminophen 500 mg tablet 500 mg PO Q6H PRN pain 03/16/25 04/09/25 History (Acetaminophen Extra Strength) cholecalciferol (vitamin D3) 25 25 mcg PO DAILY 03/16/25 04/09/25 History mcg (1,000 unit) capsule fesoterodine 8 mg tablet,extended 8 mg PO HS 03/16/25 03/16/25 History release 24 hr (Toviaz) aspirin 81 mg tablet,delayed 81 mg PO BID 14 days #28 tabs 04/09/25 Rx release oxycodone-acetaminophen 5 mg-325 1 - 2 tablet PO Q4-6H PRN pain 7 04/09/25 Rx mg tablet days #30 tabs Allergies Allergy/AdvReac Type Severity Reaction Status Date / Time No Known Allergies Allergy NONE Verified 04/09/25 13:31 Vital Signs Vital Signs - 24 hr 04/09/25 13:34 04/09/25 15:43 04/09/25 15:55 Temperature 98.9 F 97 F L Pulse Rate 78 86 103 H Respiratory Rate 16 17 15 Blood Pressure 154/88 H 115/52 L 116/80 Pulse Oximetry 98 95 97 Oxygen Delivery Room Air Simple Face Mask Simple Face Mask Oxygen Flow Rate 8 8 Fraction of Inspired Oxygen 04/09/25 16:10 04/09/25 16:25 04/09/25 16:38 Temperature Pulse Rate 86 102 H 88 Respiratory Rate 18 18 Blood Pressure 122/78 120/85 Pulse Oximetry 97 91 Oxygen Delivery Room Air Room Air Oxygen Flow Rate Fraction of Inspired Oxygen 04/09/25 16:40 04/09/25 16:55 04/09/25 17:25 Temperature 96.8 F L Pulse Rate 96 111 H 83 Respiratory Rate 10 L 12 18 Blood Pressure 120/77 112/84 114/83 Pulse Oximetry 93 95 100 Oxygen Delivery Nasal Cannula Nasal Cannula Oxygen Flow Rate 2 2 Fraction of Inspired Oxygen 04/09/25 17:40 04/09/25 18:10 04/09/25 19:07 Temperature 97.4 F L 96.9 F L 97.8 F Pulse Rate 81 77 86 Respiratory Rate 18 17 18 Blood Pressure 116/75 131/76 112/71 Pulse Oximetry 95 98 97 Oxygen Delivery Oxygen Flow Rate Fraction of Inspired Oxygen 04/09/25 19:51 04/09/25 21:04 04/09/25 21:11 Temperature 97.1 F L Pulse Rate 81 85 Respiratory Rate 20 18 Blood Pressure 100/61 Pulse Oximetry 97 95 95 Oxygen Delivery Room Air Nasal Cannula Oxygen Flow Rate 2 Fraction of Inspired Oxygen 21 04/09/25 21:40 04/09/25 22:05 04/09/25 22:23 Temperature 98.0 F Pulse Rate 84 70 Respiratory Rate 18 Blood Pressure 145/76 H Pulse Oximetry 95 95 Oxygen Delivery Nasal Cannula Oxygen Flow Rate 2 Fraction of Inspired Oxygen 04/09/25 22:33 04/10/25 00:00 04/10/25 00:00 Temperature 97.7 F Pulse Rate 71 73 Respiratory Rate 18 Blood Pressure 102/67 Pulse Oximetry 97 97 Oxygen Delivery Nasal Cannula Oxygen Flow Rate 2 Fraction of Inspired Oxygen 04/10/25 00:00 04/10/25 03:14 04/10/25 04:00 Temperature Pulse Rate 68 64 Respiratory Rate Blood Pressure Pulse Oximetry 97 Oxygen Delivery Nasal Cannula Oxygen Flow Rate 2 Fraction of Inspired Oxygen 04/10/25 04:00 Temperature 98.1 F Pulse Rate 66 Respiratory Rate 16 Blood Pressure 92/47 L Pulse Oximetry 95 Oxygen Delivery Oxygen Flow Rate Fraction of Inspired Oxygen Exam 2 Const: General: cooperative, healthy appearing and comfortable O rientation/consciousness: oriented to person, oriented to place and oriented to time Neck: Neck: supple Resp: Auscultation: clear to auscultation bilaterally, no crackles, no rales, no rhonchi and no wheezes Cardio: Rate: regular rate Rhythm: regular rhythm Heart sounds: Murmur heart sound present (III/ systolic murmur RICS) Peripheral pulses: dorsalis pedis present GI: GI Palp: Yes Soft to palpation, No Tenderness to palpation present (GI) and No Guarding due to palpation present (GI) Auscultation: normal bowel sounds Skin: Other: Right knee: Dressing intact, no drainage erythema or warmth. Moderate swelling. Limited ROM due to pain. Pulses intact, calf nontender Neuro: General: oriented to person, oriented to place and oriented to time Extrem: Right lower extremity: no edema Left lower extremity: no edema Results Labs 04/10/25 03:47 04/10/25 03:47 Labs: Short CBC 04/10/25 Range/Units 03:47 WBC 12.3 H (4.5-10.0) K/mm3 Hgb 12.3 (12.0-15.0) g/dL Hct 38.6 (37.0-47.0) % Plt Count 224 (150-375) k/mm3 BMP 04/09/25 04/10/25 19:05 03:47 Sodium 138 136 L Potassium 3.9 4.2 Chloride 104 103 Carbon Dioxide 26 29 BUN 16 18 H Creatinine 0.74 0.86 Glucose 171 H 126 H Calcium 8.7 8.7 Urine 04/09/25 Range/Units 21:15 Urine Color Yellow (Yellow) Urine Appearance Clear (Clear) Urine pH 7.0 (5.0-9.0) Ur Specific [place] 1.012 (1.001-1.035) Urine Protein Negative (Negative) mg/dL Urine Glucose (UA) Negative (Negative) mg/dL
--- NOTE | 2025-04-10 09:05 | PM.PNORT ---
Progress Note: A&P Assessment and Plan (1) Status post total right knee replacement: Code(s): Z96.651 - Presence of right artificial knee joint Status: Acute (2) PAF (paroxysmal atrial fibrillation): Code(s): I48.0 - Paroxysmal atrial fibrillation Status: Acute Plan Postop day 1: Right total knee arthroplasty. Patient did go into A.fib at the time of surgery. She is currently normal sinus. Cardiology and Hospitalist consulted. Thank you for consulting. Discussed with Dr. Grajeda and patient is okay to start Eliquis per cardiology recommendation. Notified patient's nurse. Patient is currently in the IMU due to the medications she is on. Nurse reported a foul smelling urine last night. UA sent. From an orthopedic standpoint she is doing quite well and is okay for discharge once medically cleared and she is progressing well with PT/OT. Pain manageable with pain medication. No numbness or tingling. Subjective Subjective Date/Time Seen: 04/10/25 09:05 Interval history: Patient resting comfortably today. No acute distress. Notes pain is well controlled. She is eager to start therapy. She states overall she feels good. Nurse reported foul smelling urine last night and a UA was ordered. She has not other complaints. No CP, racing heart, or SOB. Review of Systems Review of Systems: All systems reviewed & are unremarkable except as noted in HPI and below Exam Narrative: 84-year-old overweight female. Wearing O2 nasal canula. Resting comfortably in bed. Alert and oriented x3. No acute distress. Wearing compression sock and mariel wrap. Dressing intact with no drainage. Moderate swelling. Slight ecchymosis. No erythema. No hematoma. No warmth. Range of motion limited due to pain. Calf nontender. Neurologic status intact. No varicosities. Distal pulses palpable. Light touch sensation intact. Good capillary refill. Objective Data Vital Signs Vital Signs: Vital Signs - 24 hr 04/09/25 13:34 04/09/25 15:43 04/09/25 15:55 Temperature 98.9 F 97 F L Pulse Rate 78 86 103 H Respiratory Rate 16 17 15 Blood Pressure 154/88 H 115/52 L 116/80 Pulse Oximetry 98 95 97 Oxygen Delivery Room Air Simple Face Mask Simple Face Mask Oxygen Flow Rate 8 8 Fraction of Inspired Oxygen 04/09/25 16:10 04/09/25 16:25 04/09/25 16:38 Temperature Pulse Rate 86 102 H 88 Respiratory Rate 18 18 Blood Pressure 122/78 120/85 Pulse Oximetry 97 91 Oxygen Delivery Room Air Room Air Oxygen Flow Rate Fraction of Inspired Oxygen 04/09/25 16:40 04/09/25 16:55 04/09/25 17:25 Temperature 96.8 F L Pulse Rate 96 111 H 83 Respiratory Rate 10 L 12 18 Blood Pressure 120/77 112/84 114/83 Pulse Oximetry 93 95 100 Oxygen Delivery Nasal Cannula Nasal Cannula Oxygen Flow Rate 2 2 Fraction of Inspired Oxygen 04/09/25 17:40 04/09/25 18:10 04/09/25 19:07 Temperature 97.4 F L 96.9 F L 97.8 F Pulse Rate 81 77 86 Respiratory Rate 18 17 18 Blood Pressure 116/75 131/76 112/71 Pulse Oximetry 95 98 97 Oxygen Delivery Oxygen Flow Rate Fraction of Inspired Oxygen 04/09/25 19:51 04/09/25 21:04 04/09/25 21:11 Temperature 97.1 F L Pulse Rate 81 85 Respiratory Rate 20 18 Blood Pressure 100/61 Pulse Oximetry 97 95 95 Oxygen Delivery Room Air Nasal Cannula Oxygen Flow Rate 2 Fraction of Inspired Oxygen 21 04/09/25 21:40 04/09/25 22:05 04/09/25 22:23 Temperature 98.0 F Pulse Rate 84 70 Respiratory Rate 18 Blood Pressure 145/76 H Pulse Oximetry 95 95 Oxygen Delivery Nasal Cannula Oxygen Flow Rate 2 Fraction of Inspired Oxygen 04/09/25 22:33 04/10/25 00:00 04/10/25 00:00 Temperature 97.7 F Pulse Rate 71 73 Respiratory Rate 18 Blood Pressure 102/67 Pulse Oximetry 97 97 Oxygen Delivery Nasal Cannula Oxygen Flow Rate 2 Fraction of Inspired Oxygen 04/10/25 00:00 04/10/25 03:14 04/10/25 04:00 Temperature Pulse Rate 68 64 Respiratory Rate Blood Pressure Pulse Oximetry 97 Oxygen Delivery Nasal Cannula Oxygen Flow Rate 2 Fraction of Inspired Oxygen 04/10/25 04:00 04/10/25 08:00 Temperature 98.1 F 97.8 F Pulse Rate 66 58 L Respiratory Rate 16 16 Blood Pressure 92/47 L 103/54 L Pulse Oximetry 95 96 Oxygen Delivery Oxygen Flow Rate Fraction of Inspired Oxygen Intake/Output Intake/Output: Intake & Output 06/07/25 06/08/25 06/09/25 06/10/25 23:59 23:59 23:59 23:59 Intake Total 1800 118 Balance 1800 118 Meds/Results Medications: Active Medications Generic Name Dose Route Start Last Admin Trade Name Freq PRN Reason Stop Dose Admin Acetaminophen 650 mg 04/09/25 18:00 04/10/25 05:44 Acetaminophen 325 Mg Tablet PO 650 mg Q6HR ANGEL Administration Aspirin 81 mg 04/09/25 21:00 04/09/25 20:25 Aspirin 81 Mg Enteric Tablet PO 81 mg Q12HR ANGEL Administration Atorvastatin Calcium 20 mg 04/10/25 09:00 Atorvastatin 20 Mg Tablet BY MOUTH DAILY ANGEL Cyclobenzaprine HCl 10 mg 04/09/25 17:03 Cyclobenzaprine Hcl 10 Mg Tablet PO Q8H PRN Spasms Diphenhydramine HCl 25 mg 04/09/25 17:03 Diphenhydramine Hcl Inj 50 Mg/Ml Vial IV PUSH Q6H PRN Itching Famotidine 20 mg 04/09/25 21:00 04/09/25 20:25 Famotidine 20 Mg Tablet PO 20 mg Q12HR ANGEL Administration Furosemide 20 mg 04/10/25 09:00 Furosemide 20 Mg Tablet PO QAM ANGEL Hydromorphone HCl 1 mg 04/09/25 17:10 Hydromorphone Hcl Inj (*Crx) 2 Mg/Ml Vial IV PUSH Q2H PRN Breakthrough Pain Rated 7-10 or NPO Hydromorphone HCl 0.5 mg 04/09/25 17:09 Hydromorphone Hcl Inj (*Crx) 2 Mg/Ml Vial IV PUSH Q2H PRN Breakthrough Pain Rated 4-6 or NPO Cefazolin Sodium 2 gm in 50 mls @ 100 mls/hr 04/09/25 22:00 04/10/25 05:44 Ancef 2 Gm/D5w 50 Ml IVPB 04/10/25 14:29 100 mls/hr Q8H ANGEL Administration Methimazole 5 mg 04/09/25 17:55 04/09/25 18:31 Methimazole 5 Mg Tab PO Not Given DAILY ANGEL Naloxone HCl 0.1 mg 04/09/25 17:03 Naloxone Hcl 0.4 Mg/Ml Vial IV PUSH Q2M PRN Opiate Reversal Ondansetron HCl 4 mg 04/09/25 17:03 Ondansetron Inj 4 Mg/2 Ml Vial IV PUSH Q4H PRN Nausea And Vomiting Oxycodone HCl 2.5 mg 04/09/25 17:03 Oxycodone Hcl (*Crx) 2.5 Mg Tab Ir PO Q4H PRN Pain Rated 4-6 Oxycodone HCl 5 mg 04/09/25 17:03 Oxycodone Hcl (*Crx) 5 Mg Tab Ir PO Q4H PRN Pain Rated 7-10 Polyethylene Glycol 17 gm 04/10/25 09:00 Polyethylene Glycol 3350 17 Gm Powd.Pack PO QAM ANGEL Senna/Docusate Sodium 2 tab 04/09/25 17:03 04/09/25 17:51 Senna/Docusate Sodium Tablet PO 2 tab BID ANGEL Administration Sotalol HCl 80 mg 04/09/25 21:00 04/09/25 22:05 Sotalol Hcl 80 Mg Tablet PO 80 mg Q12HR ANGEL Administration Tramadol HCl 50 mg 04/09/25 17:03 Tramadol Hcl (*Crx) 50 Mg Tablet PO Q4H PRN Pain Rated 1-3 Radiology Results: ITS Impressions Knee X-Ray 04/09/25 16:52 IMPRESSION: No acute osseous abnormality right knee. Total knee arthroplasty. Labs Labs: Laboratory Results - last 24 hr 04/09/25 04/09/25 04/09/25 13:02 19:05 21:15 WBC RBC Hgb Hct MCV MCH MCHC RDW Plt Count MPV Immature Gran % (Auto) Neut % (Auto) Lymph % (Auto) Sully % (Auto) Eos % (Auto) Baso % (Auto) Lymph # (Auto) [place] # (Auto) Eos # (Auto) Baso # (Auto) Abs Immat Gran (auto) Absolute Neuts (auto) Absolute Nucleated RBC Nucleated RBC % Sodium 138 Potassium 3.9 Chloride 104 Carbon Dioxide 26 Anion Gap 8 BUN 16 Creatinine 0.74 Estim Creat Clear Calc 46 Estimated GFR > 60 Glucose 171 H Calcium 8.7 Magnesium 2.1 Urine Color Yellow Urine Appearance Clear Urine pH 7.0 Ur Specific [place] 1.012 Urine Protein Negative Urine Glucose (UA) Negative Urine Ketones Trace H Ur Blood (Man) Negative Urine Nitrate Positive H Urine Bilirubin Negative Urine Urobilinogen 0.2 Leukocyte Esterase Rfl 3+ H Urine RBC 0-2 Urine WBC 51-100 H Ur Squamous Epith Cells None seen Urine Bacteria 4+ H Urine Casts 0-2 Blood Type O Positive Antibody Screen Negative 04/10/25 03:47 WBC 12.3 H RBC 4.20 Hgb 12.3 Hct 38.6 MCV 91.9 MCH 29.3 MCHC 31.9 L RDW 14.0 Plt Count 224 MPV 10.8 H Immature Gran % (Auto) 0.5 Neut % (Auto) 85.5 H Lymph % (Auto) 8.1 L Sully % (Auto) 5.7 Eos % (Auto) 0.0 Baso % (Auto) 0.2 Lymph # (Auto) 1.00 [place]ully # (Auto) 0.7 H Eos # (Auto) 0.0 Baso # (Auto) 0.0 Abs Immat Gran (auto) 0.06 H Absolute Neuts (auto) 10.5 H Absolute Nucleated RBC 0.000 Nucleated RBC % 0.0 Sodium 136 L Potassium 4.2 Chloride 103 Carbon Dioxide 29 Anion Gap 4 BUN 18 H Creatinine 0.86 Estim Creat Clear Calc 40 Estimated GFR > 60 Glucose 126 H Calcium 8.7 Magnesium 2.2 Urine Color Urine Appearance Urine pH Ur Specific [place] Urine Protein Urine Glucose (UA) Urine Ketones Ur Blood (Man) Urine Nitrate Urine Bilirubin Urine Urobilinogen Leukocyte Esterase Rfl Urine RBC Urine WBC Ur Squamous Epith Cells Urine Bacteria Urine Casts Blood Type Antibody Screen
[2025-04-10] MEDS: methiMAzole 5 MG TAB PO (09:30)
[2025-04-10] MEDS: FAMOTIDINE 20 MG TABLET PO ×2 (09:30→20:50)
[2025-04-10] MEDS: SENNA/DOCUSATE SODIUM TABLET 2 TAB PO ×2 (09:30→17:02)
[2025-04-10] MEDS: FUROSEMIDE 20 MG TABLET PO (09:30)
[2025-04-10] MEDS: SOTALOL HCL 80 MG TABLET PO (09:30)
[2025-04-10] MEDS: ASPIRIN 81 MG ENTERIC TABLET PO (09:31)
--- NOTE | 2025-04-10 11:30 | ECG_ITS ---
Test Date: 2025-04-10 12:12:09 Measurements Intervals [place] Rate: 62 P: 49 [place]: 174 QRS: 40 QRSD: 142 T: 11 QT: 475 QTc: 484 Interpretive Statements SINUS RHYTHM RIGHT BUNDLE BRANCH BLOCK MINIMAL Q WAVES- INFERIOR LEADS ABNORMAL ECG Compared to ECG 04/10/2025 00:11:18 No significant changes Electronically Signed On 04-10-2025 12:47:58 CDT by Hunter Ulloa D.O.
[2025-04-10] MEDS: APIXABAN 5 MG TABLET PO (17:03)
[2025-04-10] MEDS: cefTRIAXone 2 GM/NS 100 ML 2 GM/100 ML BAG IVPB (20:49)
[2025-04-10] MEDS: ATORVASTATIN 20 MG TABLET BY MOUTH (20:50)
[2025-04-11] VITALS (17 sets, daily range): BP systolic 109–139; BP diastolic 46–75; PULSE 54–67; RESP 16–20; TEMP 36.4–37.4; O2SAT 91–99
[2025-04-11] MEDS: ACETAMINOPHEN 325 MG TABLET 650 MG PO ×5 (00:10→23:47)
[2025-04-11 04:54] LABS: Anion Gap 7 mmol/L (4-12); Blood Urea Nitrogen 18 mg/dL (7-17); Calcium 8.9 mg/dL (8.4-10.2); Carbon Dioxide 27 mmol/L (22-30); Chloride 104 mmol/L (98-107); Estimated CRCL calculation 36 ml/min; Estimated Glomerular Filt Rate 55; Glucose 94 mg/dL (65-110); Magnesium 2.3 mg/dL (1.6-2.3); Potassium 3.6 mmol/L (3.4-5.0); Sodium 138 mmol/L (137-145)
--- NOTE | 2025-04-11 07:48 | PM.PNCARD ---
Progress Note: A&P Assessment and Plan (1) PAF (paroxysmal atrial fibrillation): Code(s): I48.0 - Paroxysmal atrial fibrillation Status: Acute Assessment and Plan: In sinus rhythm. [id number] 3. On Eliquis. Start 04/09/25 evening Sotalol 80 mg BID as per protocol checking EKG after each does for 5 doses. Decrease Sotalol 40 mg BID due to bradycardia. Anticipate d/c home tomorrow morning. (2) Diastolic dysfunction: Code(s): I51.89 - Other ill-defined heart diseases Status: Acute Assessment and Plan: Euvolemic. (3) Aortic stenosis: Code(s): I35.0 - Nonrheumatic aortic (valve) stenosis Status: Acute Assessment and Plan: Mild-mod. Stabel. (4) Mixed hyperlipidemia: Code(s): E78.2 - Mixed hyperlipidemia Status: Acute Assessment and Plan: On Atorvastatin. Subjective Date/time seen: 04/11/25 07:48 Interval history: Denies chest pain or sob. HR was slow last evening at 40 bpm so Sotalol was held at that time. Exam Const: General: cooperative, healthy appearing and comfortable Orientation/consciousness: oriented to person, oriented to place and oriented to time Resp: Auscultation: clear to auscultation bilaterally, no crackles, no rales, no rhonchi and no wheezes Cardio: Rate: regular rate Rhythm: regular rhythm Heart sounds: Murmur heart sound present (III/ systolic murmur RICS) Peripheral pulses: dorsalis pedis present Neuro: General: oriented to person, oriented to place and oriented to time Extrem: Right lower extremity: no edema Left lower extremity: no edema Objective Data Vital Signs Vital Signs: Vital Signs - 24 hr 04/10/25 08:00 04/10/25 08:00 04/10/25 08:32 Temperature 97.8 F Pulse Rate 58 L 60 Respiratory Rate 16 Blood Pressure 103/54 L Pulse Oximetry 96 Oxygen Delivery Room Air Oxygen Flow Rate Fraction of Inspired Oxygen 04/10/25 09:21 04/10/25 09:30 04/10/25 10:46 Temperature Pulse Rate 51 L 57 L Respiratory Rate Blood Pressure Pulse Oximetry 95 Oxygen Delivery Room Air Room Air Oxygen Flow Rate Fraction of Inspired Oxygen 04/10/25 11:48 04/10/25 12:00 04/10/25 12:00 Temperature 97.7 F Pulse Rate 52 L 61 61 Respiratory Rate 12 12 Blood Pressure 104/69 Pulse Oximetry 95 95 Oxygen Delivery Room Air Oxygen Flow Rate Fraction of Inspired Oxygen 21 04/10/25 16:00 04/10/25 16:00 04/10/25 16:00 Temperature 97.7 F Pulse Rate 54 L 54 L 51 L Respiratory Rate 18 18 Blood Pressure 99/57 L Pulse Oximetry 98 98 Oxygen Delivery Room Air Oxygen Flow Rate Fraction of Inspired Oxygen 21 04/10/25 19:43 04/10/25 19:49 04/10/25 20:00 Temperature 97.8 F Pulse Rate 60 50 L Respiratory Rate 20 16 Blood Pressure 94/58 L Pulse Oximetry 90 97 97 Oxygen Delivery Room Air Nasal Cannula Oxygen Flow Rate 2 Fraction of Inspired Oxygen 21 04/10/25 20:00 04/10/25 20:43 04/10/25 23:46 Temperature Pulse Rate 51 L 48 L 60 Respiratory Rate Blood Pressure Pulse Oximetry 94 Oxygen Delivery Room Air Oxygen Flow Rate Fraction of Inspired Oxygen 04/11/25 00:00 04/11/25 00:00 04/11/25 04:00 Temperature 97.9 F Pulse Rate 62 63 57 L Respiratory Rate 18 Blood Pressure 109/46 L Pulse Oximetry 99 99 Oxygen Delivery Room Air Oxygen Flow Rate Fraction of Inspired Oxygen 04/11/25 04:00 04/11/25 04:00 Temperature 98.3 F Pulse Rate 62 56 L Respiratory Rate 16 Blood Pressure 118/53 L Pulse Oximetry 97 Oxygen Delivery Oxygen Flow Rate Fraction of Inspired Oxygen Intake/Output Intake/Output: Intake & Output 04/08/25 04/09/25 04/10/25 04/11/25 23:59 23:59 23:59 23:59 Intake Total 1800 658 Balance 1800 658 Meds/Results Medications: Active Medications Generic Name Dose Route Start Last Admin Trade Name Freq PRN Reason Stop Dose Admin Acetaminophen 650 mg 04/09/25 18:00 04/11/25 05:37 Acetaminophen 325 Mg Tablet PO 650 mg Q6HR ANGEL Administration Apixaban 5 mg 04/10/25 17:00 04/10/25 17:03 Apixaban 5 Mg Tablet PO 5 mg BID ANGEL Administration Atorvastatin Calcium 20 mg 04/10/25 21:00 04/10/25 20:50 Atorvastatin 20 Mg Tablet BY MOUTH 20 mg HS ANGEL Administration Cyclobenzaprine HCl 10 mg 04/09/25 17:03 Cyclobenzaprine Hcl 10 Mg Tablet PO Q8H PRN Spasms Diphenhydramine HCl 25 mg 04/09/25 17:03 Diphenhydramine Hcl Inj 50 Mg/Ml Vial IV PUSH Q6H PRN Itching Famotidine 20 mg 04/09/25 21:00 04/10/25 20:50 Famotidine 20 Mg Tablet PO 20 mg Q12HR ANGEL Administration Furosemide 20 mg 04/10/25 09:00 04/10/25 09:30 Furosemide 20 Mg Tablet PO 20 mg QAM ANGEL Administration Hydromorphone HCl 1 mg 04/09/25 17:10 Hydromorphone Hcl Inj (*Crx) 2 Mg/Ml Vial IV PUSH Q2H PRN Breakthrough Pain Rated 7-10 or NPO Hydromorphone HCl 0.5 mg 04/09/25 17:09 Hydromorphone Hcl Inj (*Crx) 2 Mg/Ml Vial IV PUSH Q2H PRN Breakthrough Pain Rated 4-6 or NPO Ceftriaxone Sodium 2 gm in 100 mls @ 200 mls/hr 04/10/25 21:00 04/10/25 20:49 Rocephin 2 Gm/Ns 100 Ml IVPB 200 mls/hr Q24H ANGEL Administration Methimazole 5 mg 04/09/25 17:55 04/10/25 09:30 Methimazole 5 Mg Tab PO 5 mg DAILY ANGEL Administration Naloxone HCl 0.1 mg 04/09/25 17:03 Naloxone Hcl 0.4 Mg/Ml Vial IV PUSH Q2M PRN Opiate Reversal Ondansetron HCl 4 mg 04/09/25 17:03 Ondansetron Inj 4 Mg/2 Ml Vial IV PUSH Q4H PRN Nausea And Vomiting Oxycodone HCl 2.5 mg 04/09/25 17:03 Oxycodone Hcl (*Crx) 2.5 Mg Tab Ir PO Q4H PRN Pain Rated 4-6 Oxycodone HCl 5 mg 04/09/25 17:03 Oxycodone Hcl (*Crx) 5 Mg Tab Ir PO Q4H PRN Pain Rated 7-10 Polyethylene Glycol 17 gm 04/10/25 09:00 04/10/25 09:31 Polyethylene Glycol 3350 17 Gm Powd.Pack PO Not Given QAM ANGEL Senna/Docusate Sodium 2 tab 04/09/25 17:03 04/10/25 17:02 Senna/Docusate Sodium Tablet PO 2 tab BID ANGEL Administration Sotalol HCl 40 mg 04/11/25 09:00 Sotalol Hcl 40 Mg Tablet PO Q12HR ANGEL Tramadol HCl 50 mg 04/09/25 17:03 Tramadol Hcl (*Crx) 50 Mg Tablet PO Q4H PRN Pain Rated 1-3 Radiology Results: ITS Impressions Knee X-Ray 04/09/25 16:52 IMPRESSION: No acute osseous abnormality right knee. Total knee arthroplasty. Labs Labs: Laboratory Results - last 24 hr 04/11/25 04:12 Sodium 138 Potassium 3.6 Chloride 104 Carbon Dioxide 27 Anion Gap 7 BUN 18 H Creatinine 0.97 Estim Creat Clear Calc 36 Estimated GFR 55 L Glucose 94 Calcium 8.9 Magnesium 2.3
--- NOTE | 2025-04-11 07:54 | PM.PNORT ---
Progress Note: A&P Assessment and Plan (1) Status post total right knee replacement: Code(s): Z96.651 - Presence of right artificial knee joint Status: Acute (2) PAF (paroxysmal atrial fibrillation): Code(s): I48.0 - Paroxysmal atrial fibrillation Status: Acute Plan Postop day 2: Right total knee arthroplasty. Patient progressing well. Per adjunct psychology faculty member, anticipate discharge home tomorrow. Her daughter will be helping her. From an orthopedic standpoint she is doing quite well and is okay for discharge once medically cleared and she is progressing well with PT/OT. Pain manageable with pain medication. No numbness or tingling. Expected increase in pain and swelling today. Continue ice, elevation, compression socks, and pain medications. Subjective Subjective Date/Time Seen: 04/11/25 07:54 Interval history: Patient resting comfortably. Notes worsening pain today. No other complaints. No cardiac complaints. Review of Systems Review of Systems: All systems reviewed & are unremarkable except as noted in HPI and below Exam Narrative: 84-year-old overweight female. Resting comfortably in bed. Alert and oriented x3. No acute distress. Wearing compression sock and mariel wrap. Dressing intact with no drainage. Moderate swelling. Slight ecchymosis. No erythema. No hematoma. No warmth. Range of motion limited due to pain. Calf nontender. Neurologic status intact. No varicosities. Distal pulses palpable. Light touch sensation intact. Good capillary refill. Objective Data Vital Signs Vital Signs: Vital Signs - 24 hr 04/10/25 08:00 04/10/25 08:00 04/10/25 08:32 Temperature 97.8 F Pulse Rate 58 L 60 Respiratory Rate 16 Blood Pressure 103/54 L Pulse Oximetry 96 Oxygen Delivery Room Air Oxygen Flow Rate Fraction of Inspired Oxygen 04/10/25 09:21 04/10/25 09:30 04/10/25 10:46 Temperature Pulse Rate 51 L 57 L Respiratory Rate Blood Pressure Pulse Oximetry 95 Oxygen Delivery Room Air Room Air Oxygen Flow Rate Fraction of Inspired Oxygen 04/10/25 11:48 04/10/25 12:00 04/10/25 12:00 Temperature 97.7 F Pulse Rate 52 L 61 61 Respiratory Rate 12 12 Blood Pressure 104/69 Pulse Oximetry 95 95 Oxygen Delivery Room Air Oxygen Flow Rate Fraction of Inspired Oxygen 21 04/10/25 16:00 04/10/25 16:00 04/10/25 16:00 Temperature 97.7 F Pulse Rate 54 L 54 L 51 L Respiratory Rate 18 18 Blood Pressure 99/57 L Pulse Oximetry 98 98 Oxygen Delivery Room Air Oxygen Flow Rate Fraction of Inspired Oxygen 21 04/10/25 19:43 04/10/25 19:49 04/10/25 20:00 Temperature 97.8 F Pulse Rate 60 50 L Respiratory Rate 20 16 Blood Pressure 94/58 L Pulse Oximetry 90 97 97 Oxygen Delivery Room Air Nasal Cannula Oxygen Flow Rate 2 Fraction of Inspired Oxygen 21 04/10/25 20:00 04/10/25 20:43 04/10/25 23:46 Temperature Pulse Rate 51 L 48 L 60 Respiratory Rate Blood Pressure Pulse Oximetry 94 Oxygen Delivery Room Air Oxygen Flow Rate Fraction of Inspired Oxygen 04/11/25 00:00 04/11/25 00:00 04/11/25 04:00 Temperature 97.9 F Pulse Rate 62 63 57 L Respiratory Rate 18 Blood Pressure 109/46 L Pulse Oximetry 99 99 Oxygen Delivery Room Air Oxygen Flow Rate Fraction of Inspired Oxygen 04/11/25 04:00 04/11/25 04:00 Temperature 98.3 F Pulse Rate 62 56 L Respiratory Rate 16 Blood Pressure 118/53 L Pulse Oximetry 97 Oxygen Delivery Oxygen Flow Rate Fraction of Inspired Oxygen Intake/Output Intake/Output: Intake & Output 04/08/25 04/09/25 04/10/25 04/11/25 23:59 23:59 23:59 23:59 Intake Total 1800 658 Balance 1800 658 Meds/Results Medications: Active Medications Generic Name Dose Route Start Last Admin Trade Name Crq PRN Reason Stop Dose Admin Acetaminophen 650 mg 04/09/25 18:00 04/11/25 05:37 Acetaminophen 325 Mg Tablet PO 650 mg Q6HR ANGEL Administration Apixaban 5 mg 04/10/25 17:00 04/10/25 17:03 Apixaban 5 Mg Tablet PO 5 mg BID ANGEL Administration Atorvastatin Calcium 20 mg 04/10/25 21:00 04/10/25 20:50 Atorvastatin 20 Mg Tablet BY MOUTH 20 mg HS ANGEL Administration Cyclobenzaprine HCl 10 mg 04/09/25 17:03 Cyclobenzaprine Hcl 10 Mg Tablet PO Q8H PRN Spasms Diphenhydramine HCl 25 mg 04/09/25 17:03 Diphenhydramine Hcl Inj 50 Mg/Ml Vial IV PUSH Q6H PRN Itching Famotidine 20 mg 04/09/25 21:00 04/10/25 20:50 Famotidine 20 Mg Tablet PO 20 mg Q12HR ANGEL Administration Furosemide 20 mg 04/10/25 09:00 04/10/25 09:30 Furosemide 20 Mg Tablet PO 20 mg QAM ANGEL Administration Hydromorphone HCl 1 mg 04/09/25 17:10 Hydromorphone Hcl Inj (*Crx) 2 Mg/Ml Vial IV PUSH Q2H PRN Breakthrough Pain Rated 7-10 or NPO Hydromorphone HCl 0.5 mg 04/09/25 17:09 Hydromorphone Hcl Inj (*Crx) 2 Mg/Ml Vial IV PUSH Q2H PRN Breakthrough Pain Rated 4-6 or NPO Ceftriaxone Sodium 2 gm in 100 mls @ 200 mls/hr 04/10/25 21:00 04/10/25 20:49 Rocephin 2 Gm/Ns 100 Ml IVPB 200 mls/hr Q24H ANGEL Administration Methimazole 5 mg 04/09/25 17:55 04/10/25 09:30 Methimazole 5 Mg Tab PO 5 mg DAILY ANGEL Administration Naloxone HCl 0.1 mg 04/09/25 17:03 Naloxone Hcl 0.4 Mg/Ml Vial IV PUSH Q2M PRN Opiate Reversal Ondansetron HCl 4 mg 04/09/25 17:03 Ondansetron Inj 4 Mg/2 Ml Vial IV PUSH Q4H PRN Nausea And Vomiting Oxycodone HCl 2.5 mg 04/09/25 17:03 Oxycodone Hcl (*Crx) 2.5 Mg Tab Ir PO Q4H PRN Pain Rated 4-6 Oxycodone HCl 5 mg 04/09/25 17:03 Oxycodone Hcl (*Crx) 5 Mg Tab Ir PO Q4H PRN Pain Rated 7-10 Polyethylene Glycol 17 gm 04/10/25 09:00 04/10/25 09:31 Polyethylene Glycol 3350 17 Gm Powd.Pack PO Not Given QAM ANGEL Senna/Docusate Sodium 2 tab 04/09/25 17:03 04/10/25 17:02 Senna/Docusate Sodium Tablet PO 2 tab BID ANGEL Administration Sotalol HCl 40 mg 04/11/25 09:00 Sotalol Hcl 40 Mg Tablet PO Q12HR ANGEL Tramadol HCl 50 mg 04/09/25 17:03 Tramadol Hcl (*Crx) 50 Mg Tablet PO Q4H PRN Pain Rated 1-3 Radiology Results: ITS Impressions Knee X-Ray 04/09/25 16:52 IMPRESSION: No acute osseous abnormality right knee. Total knee arthroplasty. Labs Labs: Laboratory Results - last 24 hr 04/11/25 04:12 Sodium 138 Potassium 3.6 Chloride 104 Carbon Dioxide 27 Anion Gap 7 BUN 18 H Creatinine 0.97 Estim Creat Clear Calc 36 Estimated GFR 55 L Glucose 94 Calcium 8.9 Magnesium 2.3
[2025-04-11] MEDS: oxyCODONE HCL (*CRX) 5 MG TAB IR PO ×2 (08:07→13:56)
[2025-04-11] MEDS: FUROSEMIDE 20 MG TABLET PO (08:10)
[2025-04-11] MEDS: methiMAzole 5 MG TAB PO (08:10)
[2025-04-11] MEDS: SOTALOL HCL 40 MG TABLET PO ×2 (08:10→20:34)
[2025-04-11] MEDS: APIXABAN 5 MG TABLET PO ×2 (08:10→17:05)
[2025-04-11] MEDS: FAMOTIDINE 20 MG TABLET PO ×2 (08:10→20:34)
[2025-04-11] MEDS: polyethylene glycoL 3350 17 GM POWD.PACK PO (08:11)
[2025-04-11] MEDS: SENNA/DOCUSATE SODIUM TABLET 2 TAB PO ×2 (08:18→17:05)
--- NOTE | 2025-04-11 09:30 | ECG_ITS ---
Test Date: 2025-04-11 09:58:58 Measurements Intervals [place] Rate: 52 P: 36 [place]: 162 QRS: 46 QRSD: 130 T: 50 QT: 491 QTc: 460 Interpretive Statements SINUS BRADYCARDIA RIGHT BUNDLE BRANCH BLOCK ABNORMAL ECG Compared to ECG 04/10/2025 12:12:09 HEART RATE HAS DECREASED Electronically Signed On 04-11-2025 10:13:00 CDT by Hunter Ulloa D.O.
--- NOTE | 2025-04-11 16:22 | P.PNIM_ITS ---
Progress Note: A&P Assessment and Plan (1) Status post total right knee replacement: Code(s): Z96.651 - Presence of right artificial knee joint Status: Acute Assessment and Plan: * POD 1 Right total knee arthroplasty. * Ortho primary management team (2) PAF (paroxysmal atrial fibrillation): Code(s): I48.0 - Paroxysmal atrial fibrillation Status: Acute Assessment and Plan: * Episode of Afrib post op * Now in NSR * [id number] 3. On aspirin * Started Sotalol 80 mg BID on 04/09, final dose in pm 04/11 * Check EKG after each dose * Eliquis 5mg BID * Cardiology following Plan patient s/p POD #2 with history of PAF, went into A. fib RVR during surgery and patient is seen by firewood cutter and started the patient on sotalol 80mg BID and patient is anticoagulated with Eliqis, patient is now in NSR, and has no complai nts, patient daughter is present in the room, patient did not have any urinary symptoms, and her urine culture is negative, will stop ceftriaxone, patient will work with PT/OT and further recommendation to follow. Subjective Date/time seen: 04/11/25 16:22 Interval history: H&P-Narrative: Mayra Clayton is a 84 year old female with a past medical history of aortic valve stenosis, diastolic dysfunction, and DM who presents to the hospital for elective right knee replacement surgery. While in post-op, patient found to be in atrial fibrillation. Back in sinus rhythm now but Cardiology and Hospitalist has been consulted for management of afib and medication management. POD 1 Total knee arthroplasty, custom right. At the time of my exam, patient is in NSR with no complaints other than some nausea. Cardiology continues to follow regarding management of afib. They started sotalol 80 mg b.i.d. on 04/09 and plan on giving 5 total doses, with a final dose in the p.m. of 04/11. Serial EKGs to follow-up each dose of sotalol. L Pt found to have positive nitrates 3+ leukocyte esterase, 51-100 urine WBC 4+ bacteria on urinalysis. Culture still pending at this time but we will treat UTI Rocephin. She still has 1 dose cefazolin left knee completion, so we will start Rocephin tonight at 9:00 p.m.. Otherwise patient has no complaints or concerns at this time, continue to work with PT/OT. patient s/p POD #2 with history of PAF, went into A. fib RVR during surgery and patient is seen by firewood cutter and started the patient on sotalol 80mg BID and patient is anticoagulated with Eliqis, patient is now in NSR, and has no co mplaints, patient daughter is present in the room, patient did not have any urinary symptoms, and her urine culture is negative, will stop ceftriaxone, patient will work with PT/OT and further recommendation to follow. Review of Systems Review of Systems: All systems reviewed & are unremarkable except as noted in HPI and below Exam Narrative: Elderly frail Patient is comfortable, NAD HEENT: eyes are clear and none icteric LUNGS:CTA HEART: RR S1S2 ABD: BS+, Soft and nontender Lower extremities: no edema SKIN: nonjaundiced Neuro: grossly intact. Objective Data Vital Signs Vital Signs: Vital Signs - 24 hr 04/10/25 19:43 04/10/25 19:49 04/10/25 20:00 Temperature 36.6 C Pulse Rate 60 50 L Respiratory Rate 20 16 Blood Pressure 94/58 L Pulse Oximetry 90 97 97 Oxygen Delivery Room Air Nasal Cannula Oxygen Flow Rate 2 Fraction of Inspired Oxygen 21 04/10/25 20:00 04/10/25 20:43 04/10/25 23:46 Temperature Pulse Rate 51 L 48 L 60 Respiratory Rate Blood Pressure Pulse Oximetry 94 Oxygen Delivery Room Air Oxygen Flow Rate Fraction of Inspired Oxygen 04/11/25 00:00 04/11/25 00:00 04/11/25 04:00 Temperature 36.6 C Pulse Rate 62 63 57 L Respiratory Rate 18 Blood Pressure 109/46 L Pulse Oximetry 99 99 Oxygen Delivery Room Air Oxygen Flow Rate Fraction of Inspired Oxygen 04/11/25 04:00 04/11/25 04:00 04/11/25 07:58 Temperature 36.8 C 37.4 C Pulse Rate 62 56 L 60 Respiratory Rate 16 18 Blood Pressure 118/53 L 118/56 L Pulse Oximetry 97 91 Oxygen Delivery Oxygen Flow Rate Fraction of Inspired Oxygen 04/11/25 08:00 04/11/25 08:10 04/11/25 10:30 Temperature Pulse Rate 62 61 56 L Respiratory Rate Blood Pressure Pulse Oximetry Oxygen Delivery Oxygen Flow Rate Fraction of Inspired Oxygen 04/11/25 11:49 04/11/25 12:00 04/11/25 14:00 Temperature 36.4 C L Pulse Rate 62 56 L 54 L Respiratory Rate 18 Blood Pressure 138/75 Pulse Oximetry 94 Oxygen Delivery Oxygen Flow Rate Fraction of Inspired Oxygen 04/11/25 15:54 Temperature 36.6 C Pulse Rate 54 L Respiratory Rate 20 Blood Pressure 139/65 Pulse Oximetry 96 Oxygen Delivery Oxygen Flow Rate Fraction of Inspired Oxygen Intake/Output Intake/Output: Intake & Output 04/08/25 04/09/25 04/10/25 04/11/25 23:59 23:59 23:59 23:59 Intake Total 1800 658 120 Balance 1800 658 120 Meds/Results Medications: Active Medications Generic Name Dose Route Start Last Admin Trade Name Freq PRN Reason Stop Dose Admin Acetaminophen 650 mg 04/09/25 18:00 04/11/25 11:11 Acetaminophen 325 Mg Tablet PO 650 mg Q6HR ANGEL Administration Apixaban 5 mg 04/10/25 17:00 04/11/25 08:10 Apixaban 5 Mg Tablet PO 5 mg BID ANGEL Administration Atorvastatin Calcium 20 mg 04/10/25 21:00 04/10/25 20:50 Atorvastatin 20 Mg Tablet BY MOUTH 20 mg HS ANGEL Administration Cyclobenzaprine HCl 10 mg 04/09/25 17:03 Cyclobenzaprine Hcl 10 Mg Tablet PO Q8H PRN Spasms Diphenhydramine HCl 25 mg 04/09/25 17:03 Diphenhydramine Hcl Inj 50 Mg/Ml Vial IV PUSH Q6H PRN Itching Famotidine 20 mg 04/09/25 21:00 04/11/25 08:10 Famotidine 20 Mg Tablet PO 20 mg Q12HR ANGEL Administration Furosemide 20 mg 04/10/25 09:00 04/11/25 08:10 Furosemide 20 Mg Tablet PO 20 mg QAM ANGEL Administration Hydromorphone HCl 1 mg 04/09/25 17:10 Hydromorphone Hcl Inj (*Crx) 2 Mg/Ml Vial IV PUSH Q2H PRN Breakthrough Pain Rated 7-10 or NPO Hydromorphone HCl 0.5 mg 04/09/25 17:09 Hydromorphone Hcl Inj (*Crx) 2 Mg/Ml Vial IV PUSH Q2H PRN Breakthrough Pain Rated 4-6 or NPO Methimazole 5 mg 04/09/25 17:55 04/11/25 08:10 Methimazole 5 Mg Tab PO 5 mg DAILY ANGEL Administration Naloxone HCl 0.1 mg 04/09/25 17:03 Naloxone Hcl 0.4 Mg/Ml Vial IV PUSH Q2M PRN Opiate Reversal Ondansetron HCl 4 mg 04/09/25 17:03 Ondansetron Inj 4 Mg/2 Ml Vial IV PUSH Q4H PRN Nausea And Vomiting Oxycodone HCl 2.5 mg 04/09/25 17:03 Oxycodone Hcl (*Crx) 2.5 Mg Tab Ir PO Q4H PRN Pain Rated 4-6 Oxycodone HCl 5 mg 04/09/25 17:03 04/11/25 13:56 Oxycodone Hcl (*Crx) 5 Mg Tab Ir PO 5 mg Q4H PRN Administration Pain Rated 7-10 Polyethylene Glycol 17 gm 04/10/25 09:00 04/11/25 08:11 Polyethylene Glycol 3350 17 Gm Powd.Pack PO 17 gm QAM ANGEL Administration Senna/Docusate Sodium 2 tab 04/09/25 17:03 04/11/25 08:18 Senna/Docusate Sodium Tablet PO 2 tab BID ANGEL Administration Sotalol HCl 40 mg 04/11/25 09:00 04/11/25 08:10 Sotalol Hcl 40 Mg Tablet PO 40 mg Q12HR ANGEL Administration Tramadol HCl 50 mg 04/09/25 17:03 Tramadol Hcl (*Crx) 50 Mg Tablet PO Q4H PRN Pain Rated 1-3 Radiology Results: ITS Impressions Knee X-Ray 04/09/25 16:52 IMPRESSION: No acute osseous abnormality right knee. Total knee arthroplasty. Labs Labs: Laboratory Results - last 24 hr 04/11/25 04:12 Sodium 138 Potassium 3.6 Chloride 104 Carbon Dioxide 27 Anion Gap 7 BUN 18 H Creatinine 0.97 Estim Creat Clear Calc 36 Estimated GFR 55 L Glucose 94 Calcium 8.9 Magnesium 2.3
[2025-04-11] MEDS: ATORVASTATIN 20 MG TABLET BY MOUTH (20:34)
[2025-04-11] MEDS: traMADol HCL (*CRX) 50 MG TABLET PO (20:36)
--- NOTE | 2025-04-11 22:30 | ECG_ITS ---
Test Date: 2025-04-11 22:37:49 Measurements Intervals [place] Rate: 62 P: 50 MI: 163 QRS: 46 QRSD: 137 T: 44 QT: 466 QTc: 476 Interpretive Statements SINUS RHYTHM RIGHT BUNDLE BRANCH BLOCK ABNORMAL ECG Compared to ECG 04/11/2025 09:58:58 HEART RATE HAS INCREASED Electronically Signed On 04-12-2025 06:01:36 CDT by Hunter Ulloa D.O.
[2025-04-12] VITALS (10 sets, daily range): BP systolic 128–136; BP diastolic 60–64; PULSE 57–75; RESP 16–20; TEMP 36.9–37.1; O2SAT 94–95
[2025-04-12 05:12] LABS: Anion Gap 5 mmol/L (4-12); Blood Urea Nitrogen 14 mg/dL (7-17); Calcium 8.8 mg/dL (8.4-10.2); Carbon Dioxide 30 mmol/L (22-30); Chloride 104 mmol/L (98-107); Estimated CRCL calculation 39 ml/min; Estimated Glomerular Filt Rate > 60; Glucose 93 mg/dL (65-110); Magnesium 2.2 mg/dL (1.6-2.3); Potassium 4.4 mmol/L (3.4-5.0); Sodium 139 mmol/L (137-145)
[2025-04-12] MEDS: ACETAMINOPHEN 325 MG TABLET 650 MG PO ×2 (05:58→12:19)
--- NOTE | 2025-04-12 07:59 | PM.PNCARD ---
Progress Note: A&P Assessment and Plan (1) PAF (paroxysmal atrial fibrillation): Code(s): I48.0 - Paroxysmal atrial fibrillation Status: Acute Assessment and Plan: In sinus rhythm. [id number] 3. On Eliquis. On lower dose Sotalol 40 mg BID due to bradycardia. Start 04/09/25 evening Sotalol 80 mg BID as per protocol checking EKG after each does for 5 doses. Will sign off, please call with any questions. Upon discharge, have her f/u with me in 1-2 weeks. (2) Diastolic dysfunction: Code(s): I51.89 - Other ill-defined heart diseases Status: Acute Assessment and Plan: Euvolemic. (3) Aortic stenosis: Code(s): I35.0 - Nonrheumatic aortic (valve) stenosis Status: Acute Assessment and Plan: Mild-mod. Stabel. (4) Mixed hyperlipidemia: Code(s): E78.2 - Mixed hyperlipidemia Status: Acute Assessment and Plan: On Atorvastatin. Subjective Date/time seen: 04/12/25 07:59 Interval history: Denies chest pain or sob. She feels great today. Exam Const: General: cooperative, healthy appearing and comfortable Orientation/consciousness: oriented to person, oriented to place and oriented to time Resp: Auscultation: clear to auscultation bilaterally, no crackles, no rales, no rhonchi and no wheezes Cardio: Rate: regular rate Rhythm: regular rhythm Heart sounds: Murmur heart sound present (III/ systolic murmur RICS) Peripheral pulses: dorsalis pedis present Neuro: General: oriented to person, oriented to place and oriented to time Extrem: Right lower extremity: no edema Left lower extremity: no edema Objective Data Vital Signs Vital Signs: Vital Signs - 24 hr 04/11/25 08:00 04/11/25 08:10 04/11/25 10:30 Temperature Pulse Rate 62 61 56 L Respiratory Rate Blood Pressure Pulse Oximetry Oxygen Delivery Fraction of Inspired Oxygen 04/11/25 11:49 04/11/25 12:00 04/11/25 14:00 Temperature 97.5 F L Pulse Rate 62 56 L 54 L Respiratory Rate 18 Blood Pressure 138/75 Pulse Oximetry 94 Oxygen Delivery Fraction of Inspired Oxygen 04/11/25 15:54 04/11/25 16:00 04/11/25 18:00 Temperature 97.9 F Pulse Rate 54 L 67 62 Respiratory Rate 20 Blood Pressure 139/65 Pulse Oximetry 96 Oxygen Delivery Fraction of Inspired Oxygen 04/11/25 20:00 04/11/25 20:00 04/11/25 20:00 Temperature 98.1 F Pulse Rate 57 L 56 L Respiratory Rate 16 Blood Pressure 117/64 Pulse Oximetry 95 Oxygen Delivery Room Air Fraction of Inspired Oxygen 04/11/25 20:30 04/11/25 20:34 04/11/25 22:00 Temperature Pulse Rate 57 L 65 62 Respiratory Rate Blood Pressure Pulse Oximetry 95 Oxygen Delivery Room Air Fraction of Inspired Oxygen 21 04/11/25 23:57 04/12/25 00:00 04/12/25 00:00 Temperature 98.3 F Pulse Rate 64 65 Respiratory Rate 16 Blood Pressure 133/65 Pulse Oximetry 94 Oxygen Delivery Room Air Fraction of Inspired Oxygen 04/12/25 02:00 04/12/25 03:54 04/12/25 04:00 Temperature 98.7 F Pulse Rate 63 75 Respiratory Rate 16 Blood Pressure 128/64 Pulse Oximetry 94 Oxygen Delivery Room Air Fraction of Inspired Oxygen 04/12/25 04:00 04/12/25 06:00 Temperature Pulse Rate 75 68 Respiratory Rate Blood Pressure Pulse Oximetry Oxygen Delivery Fraction of Inspired Oxygen Intake/Output Intake/Output: Intake & Output 04/09/25 04/10/25 04/11/25 04/12/25 23:59 23:59 23:59 23:59 Intake Total 1800 658 360 Balance 1800 658 360 Meds/Results Medications: Active Medications Generic Name Dose Route Start Last Admin Trade Name Freq PRN Reason Stop Dose Admin Acetaminophen 650 mg 04/09/25 18:00 04/12/25 05:58 Acetaminophen 325 Mg Tablet PO 650 mg Q6HR ANGEL Administration Apixaban 5 mg 04/10/25 17:00 04/11/25 17:05 Apixaban 5 Mg Tablet PO 5 mg BID ANGEL Administration Atorvastatin Calcium 20 mg 04/10/25 21:00 04/11/25 20:34 Atorvastatin 20 Mg Tablet BY MOUTH 20 mg HS ANGEL Administration Cyclobenzaprine HCl 10 mg 04/09/25 17:03 Cyclobenzaprine Hcl 10 Mg Tablet PO Q8H PRN Spasms Diphenhydramine HCl 25 mg 04/09/25 17:03 Diphenhydramine Hcl Inj 50 Mg/Ml Vial IV PUSH Q6H PRN Itching Famotidine 20 mg 04/09/25 21:00 04/11/25 20:34 Famotidine 20 Mg Tablet PO 20 mg Q12HR ANGEL Administration Furosemide 20 mg 04/10/25 09:00 04/11/25 08:10 Furosemide 20 Mg Tablet PO 20 mg QAM ANGEL Administration Hydromorphone HCl 1 mg 04/09/25 17:10 Hydromorphone Hcl Inj (*Crx) 2 Mg/Ml Vial IV PUSH Q2H PRN Breakthrough Pain Rated 7-10 or NPO Hydromorphone HCl 0.5 mg 04/09/25 17:09 Hydromorphone Hcl Inj (*Crx) 2 Mg/Ml Vial IV PUSH Q2H PRN Breakthrough Pain Rated 4-6 or NPO Methimazole 5 mg 04/09/25 17:55 04/11/25 08:10 Methimazole 5 Mg Tab PO 5 mg DAILY ANGEL Administration Naloxone HCl 0.1 mg 04/09/25 17:03 Naloxone Hcl 0.4 Mg/Ml Vial IV PUSH Q2M PRN Opiate Reversal Ondansetron HCl 4 mg 04/09/25 17:03 Ondansetron Inj 4 Mg/2 Ml Vial IV PUSH Q4H PRN Nausea And Vomiting Oxycodone HCl 2.5 mg 04/09/25 17:03 Oxycodone Hcl (*Crx) 2.5 Mg Tab Ir PO Q4H PRN Pain Rated 4-6 Oxycodone HCl 5 mg 04/09/25 17:03 04/11/25 13:56 Oxycodone Hcl (*Crx) 5 Mg Tab Ir PO 5 mg Q4H PRN Administration Pain Rated 7-10 Polyethylene Glycol 17 gm 04/10/25 09:00 04/11/25 08:11 Polyethylene Glycol 3350 17 Gm Powd.Pack PO 17 gm QAM ANGEL Administration Senna/Docusate Sodium 2 tab 04/09/25 17:03 04/11/25 17:05 Senna/Docusate Sodium Tablet PO 2 tab BID ANGEL Administration Sotalol HCl 40 mg 04/11/25 09:00 04/11/25 20:34 Sotalol Hcl 40 Mg Tablet PO 40 mg Q12HR ANGEL Administration Tramadol HCl 50 mg 04/09/25 17:03 04/11/25 20:36 Tramadol Hcl (*Crx) 50 Mg Tablet PO 50 mg Q4H PRN Administration Pain Rated 1-3 Radiology Results: ITS Impressions Knee X-Ray 04/09/25 16:52 IMPRESSION: No acute osseous abnormality right knee. Total knee arthroplasty. Labs Labs: Laboratory Results - last 24 hr 04/12/25 03:47 Sodium 139 Potassium 4.4 Chloride 104 Carbon Dioxide 30 Anion Gap 5 BUN 14 Creatinine 0.87 Estim Creat Clear Calc 39 Estimated GFR > 60 Glucose 93 Calcium 8.8 Magnesium 2.2
[2025-04-12] MEDS: traMADol HCL (*CRX) 50 MG TABLET PO (08:39)
[2025-04-12] MEDS: SOTALOL HCL 40 MG TABLET PO (08:43)
[2025-04-12] MEDS: SENNA/DOCUSATE SODIUM TABLET 2 TAB PO (08:44)
[2025-04-12] MEDS: FUROSEMIDE 20 MG TABLET PO (08:44)
[2025-04-12] MEDS: methiMAzole 5 MG TAB PO (08:44)
[2025-04-12] MEDS: APIXABAN 5 MG TABLET PO (08:45)
[2025-04-12] MEDS: FAMOTIDINE 20 MG TABLET PO (08:45)
[2025-04-12] MEDS: polyethylene glycoL 3350 17 GM POWD.PACK PO (08:46)
--- NOTE | 2025-04-12 10:43 | ECG_ITS ---
Test Date: 2025-04-12 10:12:58 Measurements Intervals [place] Rate: 63 P: -5 NE: 136 QRS: 48 QRSD: 134 T: 42 QT: 454 QTc: 466 Interpretive Statements SINUS RHYTHM RIGHT BUNDLE BRANCH BLOCK ABNORMAL ECG Compared to ECG 04/11/2025 22:37:49 No significant changes Electronically Signed On 04-12-2025 11:21:47 CDT by Hunter Ulloa D.O.
--- NOTE | 2025-04-12 10:53 | P.DS_ITS ---
DS: Admitting Diagnosis Discharge Date 04/12/25 Admitting Diagnosis Knee arthritis. DS: Discharge Diagnosis Discharge Diagnosis (1) Status post total right knee replacement: Code(s): Z96.651 - Presence of right artificial knee joint Status: Acute (2) PAF (paroxysmal atrial fibrillation): Code(s): I48.0 - Paroxysmal atrial fibrillation Status: Acute Assessment and Plan: Postop day 1: Right total knee arthroplasty. Patient did go into A.fib during surgery. Cardiology and Hospitalist were consulted. Patient's HR and rhythm have stabilized and cardiology signed off. Patient will follow up in 1-2 weeks with Cardiology. Pain manageable with pain medication. No numbness or tingling. Okay for discharge once okayed by Hospitalist. We had a lengthy discussion regarding postoperative wound care, limitations, expectations, and exercises. Patient shows good understanding. She has had initial physical therapy and is tolerating it well. Patient has followup appointment with Dr. Grajeda in 3 weeks. DS: Summary Hospital Course Reason for hospitalization: Total knee arthroplasty Hospital Course: Patient did go into A.fib during surgery. Cardiology and Hospitalist were consulted. Patient's HR and rhythm have stabilized and cardiology signed off. Patient will follow up in 1-2 weeks with Cardiology. Pain manageable with pain medication. No numbness or tingling. Okay for discharge once okayed by Hospitalist. Status at Discharge Functional status at discharge: uses cane/walker Overall status at discharge: patient is progressing back to baseline Time Spent with Patient Time attestation: Total time spent providing and/or coordinating discharge services: Exam Narrative: Overweight 84 y/o female. Resting comfortably in bed. Wearing compression socks bilaterally. Dressing intact with no drainage. Moderate swelling. Small area of ecchymosis. No erythema. No hematoma. Range of motion limited due to pain. Calf nontender. Neurologic status intact. No varicosities. Distal pulses pa lpable. DS: Data Data Completed and Pending Labs on day of discharge: Labs from last 24 hours 04/12/25 03:47 Sodium 139 Potassium 4.4 Chloride 104 Carbon Dioxide 30 Anion Gap 5 BUN 14 Creatinine 0.87 Estim Creat Clear Calc 39 Estimated GFR > 60 Glucose 93 Calcium 8.8 Magnesium 2.2 Discharge Plan Discharge Attending physician on discharge: Popeye Grajeda Consulting providers: Jose Cleveland; Brien Mcnulty; Hunter Ulloa Discharging Clinician: Samantha Munson Anticipated Discharge Date/Time: 04/12/25 10:52 Patient Disposition: Home Activity: march shower Diet: as tolerated Wound Care Instructions: follow printed instructions Discharge Instructions: See green instruction sheets Patient Language: Surinamese Stand Alone Forms: General Discharge Instructions Follow-up/Referrals: Samantha Munson, PA [Physician Supervisor [facility]] - Discharge Medications: New aspirin 81 mg tablet,delayed release (DR/EC) 81 mg PO BID 14 Days Qty: 28 0RF oxycodone-acetaminophen 5-325 mg tablet 1 - 2 tablet PO Q4-6H PRN (Reason: pain) 7 Days Qty: 30 0RF Continued aspirin 81 mg tablet,delayed release (DR/EC) 81 mg PO HS Fish Oil 900-1,400 mg capsule,delayed release(DR/EC) 1 cap PO HS calcium carbonate-vitamin D3 200 mg (500 mg) -400 unit tablet 1 tablet PO DAILY mupirocin 2 % ointment 1 applic topical BID Qty: 15 0RF methimazole 5 mg tablet 5 mg PO DAILY Qty: 90 2RF cholecalciferol (vitamin D3) 25 mcg (1,000 unit) capsule 25 mcg PO DAILY fesoterodine [Toviaz] 8 mg tablet extended release 24 hr 8 mg PO HS furosemide [Lasix] 20 mg tablet 20 mg PO QAM Qty: 90 1RF ketoconazole 2 % cream See Rx Instructions .ROUTE .COMPLEX Qty: 15 0RF Dose Instruction: APPLY TOPICALLY TWICE A DAY Rx Instructions: APPLY TOPICALLY TWICE A DAY atorvastatin 20 mg tablet See Rx Instructions .ROUTE .COMPLEX Qty: 90 2RF Dose Instruction: TAKE 1 TABLET BY MOUTH EVERY DAY Rx Instructions: TAKE 1 TABLET BY MOUTH EVERY DAY Held acetaminophen [Acetaminophen Extra Strength] 500 mg tablet 500 mg PO Q6H PRN (Reason: pain) Hold Instructions: Resume on 04/23/25. Do not take more than 3,000 mg in 24 hours. Pain medications have Tylenol in it as well. Date of admission: 04/10/25 08:57 Primary Care Provider: Juan Alaniz Admitting Provider: Popeye Grajeda Attending physician on admission: Popeye Grajeda Condition: Stable
--- NOTE | 2025-04-12 13:47 | P.PNIM_ITS ---
Progress Note: A&P Assessment and Plan (1) Status post total right knee replacement: Code(s): Z96.651 - Presence of right artificial knee joint Status: Acute Assessment and Plan: * POD 1 Right total knee arthroplasty. * Ortho primary management team (2) PAF (paroxysmal atrial fibrillation): Code(s): I48.0 - Paroxysmal atrial fibrillation Status: Acute Assessment and Plan: * Episode of Afrib post op * Now in NSR * [id number] 3. On aspirin * Started Sotalol 80 mg BID on 04/09, final dose in pm 04/11 * Check EKG after each dose * Eliquis 5mg BID * Cardiology following Plan patient s/p POD #3 with history of PAF, went into A. fib RVR during surgery and patient is seen by call center team leader and started the patient on sotalol 80mg BID but patient was bradycardia and sotalol was reduced to 40mg BIDm and patient is ant icoagulated with Eliqis, patient is now in NSR, and has no complaints, patient has received 5 doses of sotalol and her HR is table, and patient is clinically stable, patient will be discharged by surgery service, patient daughter is present in the room, patient did not have any urinary symptoms, and her urine culture is negative, will stop ceftriaxone, patient will follow up with her surgeon as scheduled. Subjective Date/time seen: 04/12/25 13:47 Interval history: H&P-Narrative: Mayra Clayton is a 84 year old female with a past medical history of aortic valve stenosis, diastolic dysfunction, and DM who presents to the hospital for elective right knee replacement surgery. While in post-op, patient found to be in atrial fibrillation. Back in sinus rhythm now but Cardiology and Hospitalist has been consulted for management of afib and medication management. POD 1 Total knee arthroplasty, custom right. At the time of my exam, patient is in NSR with no complaints other than some nausea. Cardiology continues to follow regarding management of afib. They started sotalol 80 mg b.i.d. on 04/09 and plan on giving 5 total doses, with a final dose in the p.m. of 04/11. Serial EKGs to follow-up each dose of sotalol. L Pt found to have positive nitrates 3+ leukocyte esterase, 51-100 urine WBC 4+ bacteria on urinalysis. Culture still pending at this time but we will treat UTI Rocephin. She still has 1 dose cefazolin left knee completion, so we will start Rocephin tonight at 9:00 p.m.. Otherwise patient has no complaints or concerns at this time, continue to work with PT/OT. patient s/p POD #3 with history of PAF, went into A. fib RVR during surgery and patient is seen by call center team leader and started the patient on sotalol 80mg BID but patient was bradycardia and sotalol was reduced to 40mg BIDm and patient is anticoagulated with Eliqis, patient is now in NSR, and has no complaints, patient has received 5 doses of sotalol and her HR is table, and patient is clinically stable, patient will be discharged by surgery service, patient daughter is present in the room, patient did not have any urinary symptoms, and her urine culture is negative, will stop ceftriaxone, patient will follow up with her surgeon as scheduled. Review of Systems Review of Systems: All systems reviewed & are unremarkable except as noted in HPI and below Exam Narrative: Elderly frail Patient is comfortable, NAD HEENT: eyes are clear and none icteric LUNGS:CTA HEART: RR S1S2 ABD: BS+, Soft and nontender Lower extremities: no edema SKIN: nonjaundiced Neuro: grossly intact. Objective Data Vital Signs Vital Signs: Vital Signs - 24 hr 04/11/25 14:00 04/11/25 15:54 04/11/25 16:00 Temperature 36.6 C Pulse Rate 54 L 54 L 67 Respiratory Rate 20 Blood Pressure 139/65 Pulse Oximetry 96 Oxygen Delivery Fraction of Inspired Oxygen 04/11/25 18:00 04/11/25 20:00 04/11/25 20:00 Temperature 36.7 C Pulse Rate 62 57 L Respiratory Rate 16 Blood Pressure 117/64 Pulse Oximetry 95 Oxygen Delivery Room Air Fraction of Inspired Oxygen 04/11/25 20:00 04/11/25 20:30 04/11/25 20:34 Temperature Pulse Rate 56 L 57 L 65 Respiratory Rate Blood Pressure Pulse Oximetry 95 Oxygen Delivery Room Air Fraction of Inspired Oxygen 21 04/11/25 22:00 04/11/25 23:57 04/12/25 00:00 Temperature 36.8 C Pulse Rate 62 64 Respiratory Rate 16 Blood Pressure 133/65 Pulse Oximetry 94 Oxygen Delivery Room Air Fraction of Inspired Oxygen 04/12/25 00:00 04/12/25 02:00 04/12/25 03:54 Temperature Pulse Rate 65 63 Respiratory Rate Blood Pressure Pulse Oximetry Oxygen Delivery Room Air Fraction of Inspired Oxygen 04/12/25 04:00 04/12/25 04:00 04/12/25 06:00 Temperature 37.1 C Pulse Rate 75 75 68 Respiratory Rate 16 Blood Pressure 128/64 Pulse Oximetry 94 Oxygen Delivery Fraction of Inspired Oxygen 04/12/25 08:00 04/12/25 08:10 04/12/25 08:43 Temperature 36.9 C Pulse Rate 57 L 61 68 Respiratory Rate 20 Blood Pressure 136/60 Pulse Oximetry 95 Oxygen Delivery Fraction of Inspired Oxygen 04/12/25 10:00 04/12/25 12:00 Temperature Pulse Rate 67 65 Respiratory Rate Blood Pressure Pulse Oximetry Oxygen Delivery Fraction of Inspired Oxygen Intake/Output Intake/Output: Intake & Output 04/09/25 04/10/25 04/11/25 04/12/25 23:59 23:59 23:59 23:59 Intake Total 1800 658 360 480 Balance 1800 658 360 480 Meds/Results Medications: Active Medications Generic Name Dose Route Start Last Admin Trade Name Freq PRN Reason Stop Dose Admin Acetaminophen 650 mg 04/09/25 18:00 04/12/25 12:19 Acetaminophen 325 Mg Tablet PO 650 mg Q6HR ANGEL Administration Apixaban 5 mg 04/10/25 17:00 04/12/25 08:45 Apixaban 5 Mg Tablet PO 5 mg BID ANGEL Administration Atorvastatin Calcium 20 mg 04/10/25 21:00 04/11/25 20:34 Atorvastatin 20 Mg Tablet BY MOUTH 20 mg HS ANGEL Administration Cyclobenzaprine HCl 10 mg 04/09/25 17:03 Cyclobenzaprine Hcl 10 Mg Tablet PO Q8H PRN Spasms Diphenhydramine HCl 25 mg 04/09/25 17:03 Diphenhydramine Hcl Inj 50 Mg/Ml Vial IV PUSH Q6H PRN Itching Famotidine 20 mg 04/09/25 21:00 04/12/25 08:45 Famotidine 20 Mg Tablet PO 20 mg Q12HR ANGEL Administration Furosemide 20 mg 04/10/25 09:00 04/12/25 08:44 Furosemide 20 Mg Tablet PO 20 mg QAM ANGEL Administration Hydromorphone HCl 1 mg 04/09/25 17:10 Hydromorphone Hcl Inj (*Crx) 2 Mg/Ml Vial IV PUSH Q2H PRN Breakthrough Pain Rated 7-10 or NPO Hydromorphone HCl 0.5 mg 04/09/25 17:09 Hydromorphone Hcl Inj (*Crx) 2 Mg/Ml Vial IV PUSH Q2H PRN Breakthrough Pain Rated 4-6 or NPO Methimazole 5 mg 04/09/25 17:55 04/12/25 08:44 Methimazole 5 Mg Tab PO 5 mg DAILY ANGEL Administration Naloxone HCl 0.1 mg 04/09/25 17:03 Naloxone Hcl 0.4 Mg/Ml Vial IV PUSH Q2M PRN Opiate Reversal Ondansetron HCl 4 mg 04/09/25 17:03 Ondansetron Inj 4 Mg/2 Ml Vial IV PUSH Q4H PRN Nausea And Vomiting Oxycodone HCl 2.5 mg 04/09/25 17:03 Oxycodone Hcl (*Crx) 2.5 Mg Tab Ir PO Q4H PRN Pain Rated 4-6 Oxycodone HCl 5 mg 04/09/25 17:03 04/11/25 13:56 Oxycodone Hcl (*Crx) 5 Mg Tab Ir PO 5 mg Q4H PRN Administration Pain Rated 7-10 Polyethylene Glycol 17 gm 04/10/25 09:00 04/12/25 08:46 Polyethylene Glycol 3350 17 Gm Powd.Pack PO 17 gm QAM ANGEL Administration Senna/Docusate Sodium 2 tab 04/09/25 17:03 04/12/25 08:44 Senna/Docusate Sodium Tablet PO 2 tab BID ANGEL Administration Sotalol HCl 40 mg 04/11/25 09:00 04/12/25 08:43 Sotalol Hcl 40 Mg Tablet PO 40 mg Q12HR ANGEL Administration Tramadol HCl 50 mg 04/09/25 17:03 04/12/25 08:39 Tramadol Hcl (*Crx) 50 Mg Tablet PO 50 mg Q4H PRN Administration Pain Rated 1-3 Radiology Results: ITS Impressions Knee X-Ray 04/09/25 16:52 IMPRESSION: No acute osseous abnormality right knee. Total knee arthroplasty. Labs Labs: Laboratory Results - last 24 hr 04/12/25 03:47 Sodium 139 Potassium 4.4 Chloride 104 Carbon Dioxide 30 Anion Gap 5 BUN 14 Creatinine 0.87 Estim Creat Clear Calc 39 Estimated GFR > 60 Glucose 93 Calcium 8.8 Magnesium 2.2
== END 2025-04-12 16:35 | disposition home or self-care (01) | DRG 983 ==
LOC: ANHSURGERY 09:21 → ANHIMU 09:21
PROVIDERS: Internal Medicine Cardiovascular Disease; Admitting Provider Orthopaedic Surgery; PCP Family Medicine; Visit Provider Physician Assistant Surgical
PROC: 0SRD0J9 Replacement of Left Knee Joint with Synthetic Substitute, Cemented, Open Approach (ICD-10-PCS; CPT 27447; principal; 2025-04-09 14:30)
DX: I97.791 Other intraoperative cardiac functional disturbances during other surgery (principal); I48.0 Paroxysmal atrial fibrillation; M17.11 Unilateral primary osteoarthritis, right knee; I35.0 Nonrheumatic aortic (valve) stenosis; I51.89 Other ill-defined heart diseases; E53.8 Deficiency of other specified B group vitamins; E05.00 Thyrotoxicosis with diffuse goiter without thyrotoxic crisis or storm; E55.9 Vitamin D deficiency, unspecified; E04.1 Nontoxic single thyroid nodule; N32.81 Overactive bladder; E78.5 Hyperlipidemia, unspecified; M85.80 Other specified disorders of bone density and structure, unspecified site; M21.371 Foot drop, right foot; M21.372 Foot drop, left foot; R73.03 Prediabetes; G62.9 Polyneuropathy, unspecified; G47.33 Obstructive sleep apnea (adult) (pediatric); F41.9 Anxiety disorder, unspecified; Z96.652 Presence of left artificial knee joint; Z79.82 Long term (current) use of aspirin
CPT/HCPCS: 36415; 73560; 80048; 81001; 83735; 85025; 86850; 86900; 86901; 87086; 93005; 97110; 97116; 97161; 97165; 97530; 97535; A9270; C1713; C1776; J0171; J0690; J0696; J1100; J1885; J2270; J2405; J2704; J2795; J3010; J7120

== ENCOUNTER 2025-05-07 16:03 | Outpatient (CLI) | payer MEDICARE, SELFPAY ==
--- OUTSIDE RECORDS SUMMARY | 2025-05-07 15:56 | XMS_ITS | Continuity of Care Document ---
Author Organization [facility] Address [address] [place] [address] [place] [address] Phone Care Team Providers Care Shirt Creaser Name Role Phone Brien Sutton Unavailable Unavailable [...] Diagnoses Date Provider Providers Copied on Encounter [facility], [address] [place] [address] [address], [place], [place], [id number], tel:[phone] [address] [facility] No Information Lesley Tesfaye. [address] [place], [address], [place]. tel:[phone] Referring Provider: Brien Cooper, [address] [place], [address]. tel:[phone] [facility], [address] [place] [address] [address], [place], [place], [id number], [place] tel:[phone] [address] [facility] No Information Lesley Tesfaye. [address] [place], [address], [place]. tel:[phone] Referring Provider: Brien Cooper, [address] [place], [place], [facility]. tel:[phone] Office/outpat ient Visit, [facility], [address], [place], [place], [id number], tel:[phone] [address] [facility] No Information Lesley Brien. [address] [place], [address], . tel:[phone] [facility], [address], [place], [place], [id number], [place] tel:[phone] [address] [facility] No Information Lesley Tesfaye. [address] [place], [address], [place]. [phone] Family History Family Member Type Diagnosis Age At Onset No Information Payers Payer name Insurance type Covered libertarian ID Jeff ortez(s) [place] [id number] [facility] [id number] Social History Type Description Quantity Date Captured [...]
--- OUTSIDE RECORDS SUMMARY | 2025-05-07 16:10 | XMS_ITS | Continuity of Care Document ---
Author Organization [facility] Address [address] [place] [address] [place] [address] Phone Care Team Providers Care Verification Clerk Name Role Phone Brien Sutton Unavailable Unavailable [...] Diagnoses Date Provider Providers Copied on Encounter [facility], [address] [place] [address] [address], [place], [place], [id number], tel:[phone] [address] [facility] No Information Lesley Tesfaye. [address] [place], [address], [place]. tel:[phone] Referring Provider: Brien Cooper, [address] [place], [address]. tel:[phone] [facility], [address] [place] [address] [address], [place], [place], [id number], [place] tel:[phone] [address] [facility] No Information Lesley Tesfaye. [address] [place], [address], [place]. tel:[phone] Referring Provider: Brien Cooper, [address] [place], [place], [facility]. tel:[phone] Office/outpat ient Visit, [facility], [address], [place], [place], [id number], tel:[phone] [address] [facility] No Information Lesley Brien. [address] [place], [address], . tel:[phone] [facility], [address], [place], [place], [id number], [place] tel:[phone] [address] [facility] No Information Lesley Tesfaye. [address] [place], [address], [place]. [phone] Family History Family Member Type Diagnosis Age At Onset No Information Payers Payer name Insurance type Covered constitution party ID Jeff ortez(s) [place] [id number] [facility] [id number] Social History Type Description Quantity Date Captured [...]
[2025-05-07 17:07] LABS: Alanine Aminotransferase 12 U/L (6-35); Albumin Level 4.0 g/dL (3.5-5.1); Alkaline Phosphatase 126 U/L (38-126); Anion Gap 8 mmol/L (4-12); Aspartate Amino Transferase 25 U/L (14-36); Bilirubin,Total 0.3 mg/dL (0.2-1.3); Blood Urea Nitrogen 20 mg/dL (7-17); Calcium 9.0 mg/dL (8.4-10.2); Carbon Dioxide 30 mmol/L (22-30); Chloride 103 mmol/L (98-107); Estimated Glomerular Filt Rate 56; Glucose 90 mg/dL (65-110); Potassium 4.0 mmol/L (3.4-5.0); Sodium 141 mmol/L (137-145); Total Protein 7.7 g/dL (6.3-8.2)
[2025-05-07 17:14] LABS: Free T4 Free Thyroxine 1.14 ng/dL (0.78-2.19)
[2025-05-07 17:37] LABS: Thyroid Stimulating Hormone 1.780 uIU/mL (0.465-4.680)
== END 2025-05-07 16:04 | disposition home or self-care (01) ==
PROVIDERS: PCP Family Medicine; Visit Provider Internal Medicine Endocrinology, Diabetes & Metabolism
DX: E05.90 Thyrotoxicosis, unspecified without thyrotoxic crisis or storm (principal); R79.89 Other specified abnormal findings of blood chemistry; Z79.899 Other long term (current) drug therapy
CPT/HCPCS: 36415; 80053; 82306; 84439; 84443

== ENCOUNTER 2025-07-18 14:45 | Outpatient (RCR) | payer MEDICARE, SELFPAY ==
--- NOTE | 2025-04-23 15:29 | OPREHPOC ---
Outpatient Therapy Plan of Care This is a Multidisciplinary Plan of Care that may contain components documented by all disciplines (PT, OT, and ST.) PT Problem 1 PT Problem #1 Knowledge Deficit PT Goal 1 Goal / Goal Update *independent with HEP Target Visit 10 PT Problem 2 PT Problem #2 Pain PT Goal 1 Goal / Goal Update * pain rating at worst of R knee 3/10 with increased activity level Target Visit 10 PT Problem 3 PT Problem #3 Impaired Flexibility PT Goal 1 Goal / Goal Update * increase R knee active ROM to improve transfer and mobility skills 1* flexion 120' 2* extension 0' Target Visit 10 PT Problem 4 PT Problem #4 Impaired Strength PT Goal 1 Goal / Goal Update *increase strength of R knee to 4+/5 Target Visit 10 PT Problem 5 PT Problem #5 Impaired Functional Mobility PT Goal 1 Goal / Goal Update 1* 2 minute walking test distance of 425' with assistive device 2* pt report walking in community 3* up/down 4 steps with 1 hand railing use, independent Target Visit 10
--- NOTE | 2025-04-23 15:29 | PTOPEVAL1 ---
Assessment and note entered by Amee You, PT Evaluation Information Assessment Status Evaluation ICD-10 Condition Codes (PT) Abnormalities of gait and mobility R26.9,Weakness R53.1,Encounter for other orthopedic aftercare Z47 .89,Aftercare following joint replacement surgery Z47.1 Onset 04-09-25 Subjective Information had R TKR on 04-09-25 hospitalized until 04-12-25 due to new a-fib post op; used wheeled walker since surgery; have been doing the exercises from the hospital at home, but not doing a whole lot of activity; R ankle also sore and hurting, but less than right after surgery activity: used rollator for distances; live alone, now son staying with her post op for help; have basement with stair lift and 2 entry steps and can use the walker for them. pt active and walked for fitness; Reported Pain Level Pain Score Self Report Additional Pain Score Comments pain range of the past few days: 3-6/10; decrease pain: ice, tylenol 2x/day sleeping is not disrupted due to pain; Assessment PT Clinical Summary Mayra has the diagnosis of s/p R TKR. Prior to surgery, she lived alone and used a rollator for distances, was active and cut her own grass. Currently, son is staying with her to assist her post op. She feels comfortable getting around her home with the walker. LE functional scale rating of 86% limitation in activity level. 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 With the evaluation: R knee ROM: active extension (-20') in sitting; with stretching: (-15') to 90 '; gross strength of R knee 4-/5 in available ROM ; edema over knee and ankle; 2 minute walking test with wheeled walker, distance of 310'; 4 steps with bilateral hand rails and single step pattern. Skilled PT services are indicated for modalities PRN to decrease pain and edema; therapeutic exercises to increase knee ROM and strength, gait and balance skills, with education for HEP and progression to lesser assistive device. Plan of Care Interventions Electrical Stimulation,Hot Pack/Cold Pack,Manual Therapy,Neuro Re-education,Patient/Caregiver Education,Therapeutic Activities,Therapeutic Exercise PT Services Indicated Yes Treatment Frequency and 2x/wk for 10 visits Duration These treatments will address the objective and functional deficits as defined above. The patient will be advanced safely and appropriately in order for the patient to progress towards his/her prior level of function. Additional exercises will be introduced and as well as a comprehensive home exercise program upon discharge, if needed, ?to ensure carryover of functional gains achieved in the clinic. This treatment plan has been reviewed and agreement upon by the patient.
--- NOTE | 2025-06-13 09:43 | OPREHPOC ---
Outpatient Therapy Plan of Care This is a Multidisciplinary Plan of Care that may contain components documented by all disciplines (PT, OT, and ST.) PT Problem 1 PT Problem #1 Knowledge Deficit PT Goal 1 Goal / Goal Update *independent with HEP (06/13/25 requires verbal cues and reinforcement for stretching) Target Visit 10 Progress Partially Met PT Problem 2 PT Problem #2 Pain PT Goal 1 Goal / Goal Update * pain rating at worst of R knee 10 with increased activity level Target Visit 10 Progress Met PT Problem 3 PT Problem #3 Impaired Flexibility PT Goal 1 Goal / Goal Update * increase R knee active ROM to improve transfer and mobility skills 1* flexion 120' 2/* extension 0' (06/13/25 -5-) Target Visit 10 Progress Not Met PT Problem 4 PT Problem #4 Impaired Strength PT Goal 1 Goal / Goal Update *increase strength of R knee to 4+/5 Target Visit 10 Progress Met PT Problem 5 PT Problem #5 Impaired Functional Mobility PT Goal 1 Goal / Goal Update 1* 2 minute walking test distance of 425' with assistive device 2* pt report walking in community 3* up/down 4 steps with 1 hand railing use, independent Target Visit 10 Progress Met
--- NOTE | 2025-06-13 09:43 | PTOPPROG ---
Assessment and note entered by Hneny Flores, PT Evaluation Information Assessment Status Evaluation ICD-10 Condition Codes (PT) Abnormalities of gait and mobility R26.9,Weakness R53.1,Encounter for other orthopedic aftercare Z47 .89,Aftercare following joint replacement surgery Z47.1 Onset 04-09-25 Subjective Information Pt reports pain 2/10 at worst in the last week. She is not using an AD at this time, keeps cane in the car for longer distances though. Overall, she thinks therapy has been going very well and reports 100% improvement. She thinks she is ready to be done with therapy. Assessment PT Clinical Summary Patient's condition has improved overall as evidenced by advancements in symptoms, mobility, strength, and overall functional use of the extremity and tolerance to ADLs. However, some limitations are still present such as limited knee ROM. Pt educated there can be normal fluctuations in ROM but continued stretching is warranted. Patient would benefit from continued skilled PT services to address the above listed impairments and facilitate a return to their PLOF. Plan of Care Interventions Electrical Stimulation,Hot Pack/Cold Pack,Manual Therapy,Neuro Re-education,Patient/Caregiver Education,Therapeutic Activities,Therapeutic Exercise PT Services Indicated Yes Treatment Frequency and 1x/wk for 6 visits Duration These treatments will address the objective and functional deficits as defined above. The patient will be advanced safely and appropriately in order for the patient to progress towards his/her prior level of function. Additional exercises will be introduced and as well as a comprehensive home exercise program upon discharge, if needed, ?to ensure carryover of functional gains achieved in the clinic. This treatment plan has been reviewed and agreement upon by the patient.
--- NOTE | 2025-07-18 15:28 | PTOPDC ---
Assessment and note entered by Henny Flores, PT Evaluation Information Assessment Status Discharge ICD-10 Condition Codes (PT) Abnormalities of gait and mobility R26.9,Weakness R53.1,Encounter for other orthopedic aftercare Z47 .89,Aftercare following joint replacement surgery Z47.1 Onset 04-09-25 Subjective Information Overall, she thinks therapy has been going very well and reports 100% improvement. She has been getting a sore spot in her back with some of the exercises. She reports her knee is perfect. She just thinks her mobility does not measure perfect but she can do every she wants and needs to. Reported Pain Level Pain Score 0: Self Report Assessment PT Clinical Summary Patient's condition has improved overall as evidenced by advancements in symptoms, mobility, strength, and overall tolerance to ADLs. Pt has met all therapy goals except knee ROM. She presents with increased muscle guarding and has plateaued in mobility. Patient to DC from PT this date and continue with updated HEP as instructed. Pt to contact PT or PCP if questions or concerns arise. Plan of Care PT Services Indicated Yes
== END 2025-07-18 17:51 | disposition home or self-care (01) ==
LOC: ANHPT 14:45
PROVIDERS: PCP Family Medicine; Visit Provider Orthopaedic Surgery
DX: Z47.1 Aftercare following joint replacement surgery (principal); Z96.651 Presence of right artificial knee joint
CPT/HCPCS: 97110; 97116; 97140; 97161; 97530

== ENCOUNTER 2025-10-09 14:59 | Outpatient (CLI) | payer MEDICARE, SELFPAY ==
[2025-10-09 16:34] LABS: Thyroid Stimulating Hormone 2.190 uIU/mL (0.465-4.680)
== END 2025-10-09 15:00 | disposition home or self-care (01) ==
PROVIDERS: PCP Family Medicine; Visit Provider Internal Medicine Endocrinology, Diabetes & Metabolism
DX: E05.90 Thyrotoxicosis, unspecified without thyrotoxic crisis or storm (principal); R79.89 Other specified abnormal findings of blood chemistry; Z79.899 Other long term (current) drug therapy
CPT/HCPCS: 36415; 82306; 84443

== ENCOUNTER 2025-10-10 13:27 | Outpatient (CLI) | payer MEDICARE, SELFPAY ==
--- NOTE | 2025-10-10 13:59 | ECHO_ITS ---
Patient Info Name: Mayra Clayton Age: 84 years : 1940 Gender: Female Ht: 64 in Wt: 189 lbs BSA: 2.00 m2 HR: 74 bpm BP: 171 / 109 mmHg Heart Rhythm: Sinus Rhythm Technical Quality: Fair Exam Date: 10/10/2025 2:03 PM Patient Status: O Admit Date: 10/10/2025 Exam Type: CA echo doppler color flow Complete two-dimensional, color flow and Doppler transthoracic echocardiogram is performed. User Interface Engineer: Melissa Gilliland Attending Provider: Hunter Ulloa DO Summary 1. Complete two-dimensional, color flow and Doppler transthoracic echocardiogram is performed. 2. Left ventricular chamber dimension is normal. 3. Left ventricular systolic function is normal, estimated at 65-70. 4. There is moderate concentric increased left ventricular wall thickness. 5. The left ventricular diastolic function is grade I diastolic dysfunction. 6. E/e' 21 elevated. 7. Left atrial chamber dimension is moderately enlarged. 8. The aortic valve is not well visualized. Cannot determine number of aortic valve leaflets. 9. 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 10. There is mild to moderate aortic valve stenosis with a peak velocity of 244 cm/s, mean gradient of 12 mmHg, and aortic valve area of 1.5 cm2. 11. There is trace aortic valve regurgitation. 12. The mitral valve has a mildly calcified annulus. 13. There is trace mitral valve regurgitation. 14. There is trace tricuspid valve regurgitation. 15. There is trace pulmonic regurgitation. 16. Dilated inferior vena cava with >50% collapse upon inspiration consistent with elevated right atrial pressure, 10 mmHg. Left Ventricle E/e' 21 elevated. Left ventricular chamber dimension is normal. Left ventricular systolic function is normal, estimated at 65-70. There is moderate concentric increased left ventricular wall thickness. The left ventricular diastolic function is grade I diastolic dysfunction. Right Ventricle Right ventricular chamber dimension is normal. Right ventricular systolic function is normal and with normal TAPSE 2.7 cm. Left Atria Left atrial chamber dimension is moderately enlarged. Right Atria Right atrial chamber dimension is normal. Aortic Valve The aortic valve is not well visualized. Cannot determine number of aortic valve leaflets. 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 There is mild to moderate aortic valve stenosis with a peak velocity of 244 cm/s, mean gradient of 12 mmHg, and aortic valve area of 1.5 cm2. There is trace aortic valve regurgitation. Pulmonic Valve There is trace pulmonic regurgitation. Mitral Valve The mitral valve has a mildly calcified annulus. There is no mitral valve stenosis. There is trace mitral valve regurgitation. Tricuspid Valve There is trace tricuspid valve regurgitation. RVSP is not measured due to an inadequate TR jet. Pericardium/Pleural There is no pericardial effusion. Inferior Vena Cava Dilated inferior vena cava with >50% collapse upon inspiration consistent with elevated right atrial pressure, 10 mmHg. Aorta The aortic root size at the sinus of Valsalva is normal. Left Ventricular Outflow Tract Name Value Normal LVOT 2D LVOT Diameter 2.0 cm LVOT Doppler LVOT Peak Velocity 113 cm/s LVOT Peak Gradient 5 mmHg LVOT Mean Gradient 3 mmHg LVOT VTI 26 cm LVOT VTI/AV VTI Ratio 0.5 LVOT Stroke Volume 83 ml LVOT CO 6.2 l/min LVOT CI 3.1 l/min/m2 Pulmonic Valve Name Value Normal RVOT Doppler RVOT Peak Velocity 62 cm/s RVOT Peak Gradient 2 mmHg PV Doppler PV Peak Velocity 79 cm/s PV Peak Gradient 2 mmHg Mitral Valve Name Value Normal MV Diastolic Function MV E Peak Velocity 112 cm/s MV A Peak Velocity 154 cm/s MV E/A 0.7 MV Decel Time (PW) 167 ms MV Annular TDI MV E/e' (Septal) 21.5 MV E/e' (Lateral) 21.1 MV E/e' (Average) 21.3 Tricuspid Valve Name Value Normal TV Regurgitation Doppler TR Peak Velocity 262 cm/s TR Peak Gradient 27 mmHg Estimated PAP/RSVP RA Pressure 10 mmHg <=5 PA Systolic Pressure 37 mmHg <36 RV Systolic Pressure 37 mmHg <36 TV Annular TDI TV Lateral Heavenly s' Velocity 11.2 cm/s >=9.5 Aortic Valve Name Value Normal AV Doppler AV Peak Velocity 244 cm/s AV Peak Gradient 24 mmHg AV Mean Gradient 12 mmHg AV VTI 57 cm AV Area (Cont Eq VTI) 1.5 cm2 >=3.0 AV Area (Cont Eq Barry) 1.5 cm2 AV DI (Barry) 0.46 AV Regurgitation 2D LVOT Area 3.3 cm2 Ventricles Name Value Normal LV Dimensions 2D/MM IVS Diastolic Thickness (2D) 0.9 cm 0.6-1.0 LVID Diastole (2D) 4.6 cm 3.8-5.2 LVIW Diastolic Thickness (2D) 0.9 cm 0.6-0.9 LVID Systole (2D) 2.7 cm 2.2-3.5 LVOT Diameter 2.0 cm LV Mass (2D Cubed) 140.36 g 67.00-162.00 LV Mass Index (2D Cubed) 70 g/m2 43-95 Relative Wall Thickness (2D) 0.39 <=0.42 LV Fractional Shortening/Ejection Fraction 2D/MM LV Fractional Shortening (2D) 41 % 27-45 LV EF (2D Teichholz) 71 % LV Diastolic Volume (4C MOD) 48 ml LV EF (4C MOD) 72 % LV Diastolic Volume (2C MOD) 69 ml LV EF (2C MOD) 73 % LV Diastolic Volume (BP MOD) 58 ml 46-106 LV Diastolic Volume Index (BP MOD) 29 ml/m2 29-61 LV Systolic Volume (BP MOD) 16 ml 14-42 LV Systolic Volume Index (BP MOD) 8 ml/m2 8-24 LV EF (BP MOD) 73 % 54-74 LV Diastolic Length (4C) 7.1 cm LV Systolic Length (4C) 5.8 cm LV Stroke Volume (4C MOD) 35 ml Atria Name Value Normal LA Dimensions LA Volume (4C A-L) 74 ml LA Volume (BP A-L) 79 ml RA Dimensions RA Area (4C) 13.4 cm2 <=18.0 Report Signatures
== END 2025-10-10 13:28 | disposition home or self-care (01) ==
PROVIDERS: PCP Family Medicine; Visit Provider Internal Medicine Cardiovascular Disease
DX: I35.0 Nonrheumatic aortic (valve) stenosis (principal)
CPT/HCPCS: 93306